=== PATIENT | female | born 1970 | race American Indian/Alaskan Native ===

== ENCOUNTER 2017-01-23 14:25 | Observation (INO) ==
--- NOTE | 2017-01-23 15:27 | EKG Report ---
Stationary ECG Study [facility] ER Test Date: 01/23/2017 2:36:54 PM Pat Name: LYNNE CALLAWAY Department: Room: Gender: F Medical Transcription: : 1970 Requested by: Daniel Mckeon Order Number: [id number] Reading MD: SALLIE MARMOLEJO Intervals [place] Rate: 64 P: 36 DC: 133 QRS: 81 QRSD: 89 T: 2 QT: 459 QTc: 469 Interpretive Statements SINUS RHYTHM LOW QRS VOLTAGE IN PRECORDIAL LEADS POSSIBLE RIGHT VENTRICULAR CONDUCTION DELAY Electronically Signed On 01-23-17 18:21:36 CDT by SALLIE MARMOLEJO [email or web address]
--- NOTE | 2017-01-23 15:53 | XRay Report ---
Portable chest Date: 01/23/2017 Clinical history: Chest pain Comparison: 01/23/2017 Technique: Portable AP sitting chest Findings: The heart is minimally enlarged with chronic scarring in the lungs. Progressive atelectasis at the lung bases. Apparent localized eventration of the left hemidiaphragm medially. Chronic fracture dislocation of the distal right clavicle. Old healed right rib fractures. Impression: Minimal cardiomegaly with progressive atelectasis at the lung bases with additional minimal interstitial edema. Localized eventration of the left hemidiaphragm medially. PROCEDURE INTERPRETED AT [facility] DEPARTMENT OF RADIOLOGY Final Report Signed by: Dr. Jane Wang
[2017-01-23 16:17] LABS: Basophils % 0.5 % (0.0-0.8); Eosinophils % 0.5 % (0.00-10.9); Hemoglobin 13.5 GM/DL (12.0-16.0); Immature Granulocytes % 0.3 %; Immature Granulocytes Absolute 0.02 #; Lymphocytes # 2.1 10*3/uL (1.4-4.0); Lymphocytes % 35.4 % (21.3-54.2); Mean Corpuscular HGB Conc 34.6 GM/DL (32-36); Mean Corpuscular Hemoglobin 31 PG (27-34); Mean Corpuscular Volume 89.7 FL (87-102); Mean Platelet Volume 10.3 FL (9.6-12.0); Monocytes # 0.4 10*3/uL (0.11-0.8); Monocytes % 7.1 % (1.7-12.7); Neutrophils # 3.3 10*3/uL (1.4-7.4); Neutrophils % 56.2 % (38.7-73.9); Platelet Count 139 T/CUMM (130-400); Red Blood Count 4.35 MC/CUMM (3.8-5.5); Red Cell Distribution Width 13.5 % (9.3-17.3); White Blood Count 5.9 T/CUMM (4-12)
[2017-01-23 16:36] LABS: Albumin 2.4 G/DL (3.4-5.0); Bilirubin,Total 0.6 MG/DL (0.2-1.0); Calcium 8.3 MG/DL (8.5-10.1); Osmolality,Calculated 283.7 MOS/KG (273-304); Potassium 3.5 MMOL/L (3.5-5.1)
[2017-01-23 16:43] LABS: D-Dimer 1.1 MG/L FEU; PT Patient Result 10.7 SECS
[2017-01-23] MEDS ORDERED: SODIUM CHLORIDE 0.9% 1,000 ML IV STA (17:34)
--- NOTE | 2017-01-23 17:41 | Emergency Department Note ---
Abe Jacobsen Manpreet, am scribing for, and in the presence of, Daniel Mckeon Jr., MD 15:26. Linda Jacobsen Marvin Jr., MD, personally performed the services described in this documentation, ascribed by Tim Fish in my presence, and it is both accurate and complete 528 . Arrival - Arrival ED Nursing Triage Note: Transfer from [facility] ER for further evaluation of chest pain. Left sided chest pain radiating into left arm onset 0745am--denies pain at present. Denies nausea or shortness of breath. Mode of Arrival: Stretcher Limitations: No Limitations Source: Patient - History of Present Illness Onset (ago): hour(s) (At 0745 AM today) Consistency: constant Severity: moderate, severe Quality: stabbing Date of Last Menstrual Period: 12/30/16 <Daniel Mckeon Jr. - Last Filed: 01/23/17 17:51> <Reid Lei - Last Filed: 01/23/17 18:28> - Arrival Chief Complaint: Chest Pain Stated Complaint: chest pain - History of Present Illness HPI Narrative: Pt is a 46 y/o female who was transferred form [facility] ER for further evaluation of her CP that radiates to her left arm that began 0745 AM. Pt also c/o being nausea and states the pain lasted 2 hours and felt like something was stabbing her. Pt felt being sleepy after this incident. Pt's CP was relieved after she was give NTG. Pt describes the pain as being sever. No other pains/complaints reported to the ED. (Tim Fish) Pt is a 46 y/o female who was transferred form [facility] ER for further evaluation of her CP that radiates to her left arm that began 0745 AM. Pt also c/o being nausea and states the pain lasted 2 hours and felt like something was stabbing her. Pt felt being sleepy after this incident. Pt's CP was relieved after she was give NTG. Pt describes the pain as being sever. No other pains/complaints reported to the ED. (Daniel Mckeon Jr.) Allergies/Adverse Reactions: Allergies Allergy/AdvReac Type Severity Reaction Status Date / Time No Known Allergies Allergy Verified 01/23/17 14:30 Home Medications: Home Medications Medication Instructions Recorded Confirmed Type Aspirin [Ecotrin] 81 mg PO DAILY 12/20/14 01/09/16 History Lisinopril 2.5 mg PO DAILY 12/20/14 01/09/16 History Omeprazole 40 mg PO DAILY 03/07/15 01/09/16 History Nitroglycerin [Nitroglycerin SL 0.4 mg SL Q5M PRN #10 tablet 07/09/15 01/09/16 Rx Tab] Clindamycin HCl [Clindamycin Cap] 300 mg PO Q8HR #10 capsule 01/09/16 Rx HYDROcodone/ACETAMIN 7.5-325 1 tablet PO Q4H PRN #40 tablet 01/09/16 Rx [[place] 7.5-325] metFORMIN [Glucophage] 500 mg PO BID W/MEALS 01/09/16 01/09/16 History Review of System - Review of System 12 point system: reviewed and no additional remarkable complaints except as stated - Review of System Constitutional: Absent: chills, diaphoresis, fever Respiratory: Absent: cough, respiratory distress Cardiovascular: Present: chest pain. Absent: dyspnea on exertion Gastrointestinal: Present: nausea. Absent: abdominal pain, vomiting, diarrhea Musculoskeletal: Present: arm pain (Left arm pain). Absent: back pain, neck pain Neurological: Absent: headache, weakness <Daniel Mckeon Jr. - Last Filed: 01/23/17 17:51> Medical,Surgical,& Family Hx - Medical History Cardio: History of: Hypertension Comment Only: Cardiovascular Problems (doesnt know doctor) Neurology: No history of: Seizures Endocrine: History of: Diabetes Mellitus (NIDDM) Rheumatology: History of;: Rheumatoid Arthritis (R Knee) Respiratory: No history of: Asthma Gastrointestinal: History of: GERD, GI Problems (hX ABD Pain) - Surgical History Cardiac Surgeries: Sugical HX of: Cardiac Catheterization (negative) Thoracic Surgeries: Patient denies;: Organ Transplant HEENT Surgeries: Patient denies: Tonsilectomy & Adenoidectomy Abdominal Surgeries: Surgical HX of: Abdominal Surgery, Appendectomy, EGD Reproductive Surgeries: Surgical HX of;: Section Patient denies;: Hysterectomy Orthopedic Surgeries: Surgical HX of;: Implanted Devices (pins in R ankle), Orthopedic Surgery (bilateral knee scopes) - Family History Family History: Reports;: Family Cancer (Maternal grandmother--brain Ca), Family Diabetes (Father), Family Hypertension (Father) - Social History Smoking Status: Never smoker Frequency of Alcohol Use: None Type of Drug Use: None <Daniel Mckeon Jr. - Last Filed: 01/23/17 17:51> Exam <Daniel Mckeon Jr. - Last Filed: 01/23/17 17:51> <Reid Lei - Last Filed: 01/23/17 18:28> Physical Examination: General: Well-developed well-nourished, no apparent distress. Head: Normocephalic, atraumatic. Eyes: PERRLA, EOMI. Nose: No obvious acute deformities or discharge. Mouth: No obvious acute injury. Neck: Full range of motion without obvious pain. No midline tender to palpation. Lymphatic: no significant lymphadenopathy noted. Lungs: Clear to auscultation bilaterally, normal and equal air movement bilaterally, no obvious rales or wheezing. Heart: regular rate and rhythm, no obvious mummers. Abdomen: Soft nontender, nondistended, normal active bowel sounds. Skin: No obivous acute lesions noted Musculoskeletal: No gross deformities. Neurological: No focal findings, cranial nerves II through XII grossly normal. Psychiatric: Appropriate mood.. : Deferred (Tim Fish) General: Well-developed well-nourished, no apparent distress. Head: Normocephalic, atraumatic. Eyes: PERRLA, EOMI. Nose: No obvious acute deformities or discharge. Mouth: No obvious acute injury. Neck: Full range of motion without obvious pain. No midline tender to palpation. Lymphatic: no significant lymphadenopathy noted. Lungs: Clear to auscultation bilaterally, normal and equal air movement bilaterally, no obvious rales or wheezing. Heart: regular rate and rhythm, no obvious mummers. Abdomen: Soft nontender, nondistended, normal active bowel sounds. Skin: No obivous acute lesions noted Musculoskeletal: No gross deformities. Neurological: No focal findings, cranial nerves II through XII grossly normal. Psychiatric: Appropriate mood.. : Deferred (Daniel Mckeon Jr.) Vital Signs: Vital Signs Temperature 98.6 F 01/23/17 14:25 Pulse Rate 65 01/23/17 18:00 Respiratory Rate 20 01/23/17 18:00 Blood Pressure 119/67 01/23/17 18:00 O2 Sat by Pulse Oximetry 100 01/23/17 18:00 Course - Reevaluation(s) Time: 17:35 Time: 18:00 <Daniel Mckeon Jr. - Last Filed: 01/23/17 17:51> <Reid Lei - Last Filed: 01/23/17 18:28> Course Narrative: Differential diagnosis, ACS, angina, anxiety, PE, labs done at the outside hospital showed a white blood cell count 4.7 hematocrit 38.7 platelet 135, troponin was less than 0.05, other labs were normal except for an alkaline phosphatase of 192, therefore it shows a normal chest x-ray and nonspecific EKG (Tim Fish) Differential diagnosis, ACS, angina, anxiety, PE, labs done at the outside hospital showed a white blood cell count 4.7 hematocrit 38.7 platelet 135, troponin was less than 0.05, other labs were normal except for an alkaline phosphatase of 192, therefore it shows a normal chest x-ray and nonspecific EKG (Daniel Mckeon Jr.) This is a 46-year-old female who was signed out after being transferred from the [facility] with chest pain which started approximately 8 AM and lasted until 10 AM when her coworkers called an ambulance and her chest pain resolved after 3 nitroglycerin. She has had 2 negative troponins since in the emergency department. Her d-dimer was ordered and found to be elevated so she will have a CT angiogram of her pulmonary artery. Patient states that she is unwilling to stay in the hospital over the weekend to obtain a nuclear medicine stress test but agrees to return to the emergency department should her chest pain return. She had a negative nuclear medicine stress test [address] angiogram of the chest reveals no pulmonary embolus. There is a fat- containing left diaphragmatic hernia which may or may not be related to the patient's symptoms. She preferred not to stay in the hospital over the weekend to wait for nuclear medicine stress test therefore it seems reasonable patient be discharged for outpatient follow-up and will plan to return to the emergency department if her symptoms return. She has had 2 negative troponins in the emergency department and she is currently chest pain-free. With the patient was given the choice to obtain outpatient stress test versus having an inpatient stress test she elected stay in the hospital knowing that a stress test may not occur over the weekend. (Reid Lei) - Reevaluation(s) Reevaluation #1: Patient is unchanged, elevated d-dimer noted and we will do a CTA to rule out PE. (Daniel Mckeon Jr.) Reevaluation #2: Patient's care transferred to (Daniel Mckeon Jr.) Results - Labs CBC & BMP: 01/23/17 16:12 01/23/17 16:12 Lab Results: I have reviewed the patients labs - Diagnostic Findings Procedure: Chest x-ray: report reviewed by me (Minimal cardiomeagly with progressive atelectasis at the lung bases with additional minimal interstitial edema. Localized eventration of the left hemidiaphragm medially.) <Daniel Mckeon Jr. - Last Filed: 01/23/17 17:51> - Labs CBC & BMP: 01/23/17 16:12 01/23/17 16:12 <Reid Lei - Last Filed: 01/23/17 18:28> - Labs Labs: Laboratory Tests 01/23/17 16:12 WBC 5.9 RBC 4.35 Hgb 13.5 Hct 39.0 MCV 89.7 MCH 31 MCHC 34.6 RDW 13.5 Plt Count 139 MPV 10.3 Neut % (Auto) 56.2 Lymph % (Auto) 35.4 [place] % (Auto) 7.1 Eos % (Auto) 0.5 Baso % (Auto) 0.5 Neut # (Auto) 3.3 Lymph # (Auto) 2.1 [place] # (Auto) 0.4 Eos # (Auto) 0.0 Baso # (Auto) 0.0 Immature Gran % 0.3 Nucleated RBC % 0.0 Immature Gran # 0.02 Nucleated RBCs # 0.00 Immature Plt Fraction 0.0 Laboratory Tests 01/23/17 01/23/17 01/23/17 16:12 16:12 16:12 INR 1.0 PT Patient/Control Mix 10.7 D-Dimer, Quantitative 1.1 Sodium 145 Potassium 3.5 Chloride 116 H Carbon Dioxide 22 Anion Gap 10.5 BUN 7 Creatinine 0.40 L GFR Calculation 151 BUN/Creatinine Ratio 17.00 Glucose 66 L Calculated Osmolality 283.7 Calcium 8.3 L Total Bilirubin 0.60 AST 29 ALT 37 Alkaline Phosphatase 166 H Troponin I < 0.015 Total Protein 7.0 Albumin 2.4 L Globulin 4.6 H Albumin/Globulin Ratio 0.5 L (Tim Fish) Laboratory Tests 01/23/17 16:12 WBC 5.9 RBC 4.35 Hgb 13.5 Hct 39.0 MCV 89.7 MCH 31 MCHC 34.6 RDW 13.5 Plt Count 139 MPV 10.3 Neut % (Auto) 56.2 Lymph % (Auto) 35.4 [place] % (Auto) 7.1 Eos % (Auto) 0.5 Baso % (Auto) 0.5 Neut # (Auto) 3.3 Lymph # (Auto) 2.1 [place] # (Auto) 0.4 Eos # (Auto) 0.0 Baso # (Auto) 0.0 Immature Gran % 0.3 Nucleated RBC % 0.0 Immature Gran # 0.02 Nucleated RBCs # 0.00 Immature Plt Fraction 0.0 Laboratory Tests 01/23/17 01/23/17 01/23/17 16:12 16:12 16:12 INR 1.0 PT Patient/Control Mix 10.7 D-Dimer, Quantitative 1.1 Sodium 145 Potassium 3.5 Chloride 116 H Carbon Dioxide 22 Anion Gap 10.5 BUN 7 Creatinine 0.40 L GFR Calculation 151 BUN/Creatinine Ratio 17.00 Glucose 66 L Calculated Osmolality 283.7 Calcium 8.3 L Total Bilirubin 0.60 AST 29 ALT 37 Alkaline Phosphatase 166 H Troponin I < 0.015 Total Protein 7.0 Albumin 2.4 L Globulin 4.6 H Albumin/Globulin Ratio 0.5 L (Daniel Mckeon Jr.)
--- NOTE | 2017-01-23 18:12 | CT Report ---
CT chest PE study Indication: Chest pain. CT CHEST WITH CONTRAST, PE PROTOCOL DLP: 550 mGy*cm. One or more of the following dose reduction techniques was used: Automated exposure control, adjustment of the mA and/or kV according the patient size, or use of iterative reconstruction techniques. Comparison: None Technique: Axial CT images of the chest were obtained during the pulmonary arterial phase of contrast injection. Coronal reconstructions were provided. Omnipaque 350, 80 cc. Findings: No central, lobar or segmental pulmonary artery filling defects. Normal-sized pulmonary artery. Normal heart size. No mediastinal, axillary or hilar lymphadenopathy. There is some atelectasis in the perihilar lungs and lung bases. Lungs are otherwise clear. There is a small fat deposition within the medial left lung base, extruded through the posterior diaphragmatic eris consistent with a small hernia measuring 50 x 35 mm in size. No hiatal hernia. Limited views of the upper abdomen show obesity and fatty infiltration of liver. Liver is nodular in contour. Gallbladder is distended. Spleen, pancreas and adrenal glands are unremarkable. Impression: 1. No evidence of PE. 2. Bilateral perihilar and bibasilar atelectasis. 3. Small fat-containing left diaphragmatic hernia. 4. Obesity, fatty infiltration of the liver and nodular liver contour. Gallbladder distention. PROCEDURE INTERPRETED AT [facility] DEPARTMENT OF RADIOLOGY Final Report Signed by: Eliezer Schilling M.D.
--- NOTE | 2017-01-23 19:09 | Hospitalist History & Physical ---
Assessment and Plan (1) Chest pain Status: Acute Assessment and plan: Serial troponin and EKG, aspirin, consult cardiology Current Visit: Yes (2) Diabetes Status: Acute Assessment and plan: Blood sugar too low, hemoglobin A1c, insulin sliding scale Current Visit: Yes (3) Obstructive sleep apnea Status: Acute Assessment and plan: Needs to schedule outpatient sleep study Current Visit: Yes (4) Morbid obesity Status: Acute Assessment and plan: Needs to lose weight Current Visit: Yes (5) Pulmonary edema Status: Acute Assessment and plan: Lasix 40 mg IV 1. Echocardiogram in a.m. BNP Current Visit: Yes History of Present Illness Chief complaint: chest pain History of present illness: Ms. Holman is a 46 year old female with a history of obstructive sleep apnea diabetes and morbid obesity resents with chest pain that she first described as squeezing pain but then describes the intensity is more of a sharp pain radiating down her left arm that was almost completely relieved with 3 nitro. Patient does now have a headache secondary to nitro. She denies associated shortness of breath but does report diaphoresis during this period of time. She does not remember if she has ever had a stress test before and she denies hypertension. She is supposed to have a sleep study but she has been noncompliant and not schedule it. reports that she snores and she has severe fatigue daily. Home Medications Medication Instructions Recorded Confirmed Type Aspirin [Ecotrin] 81 mg PO DAILY 12/20/14 01/09/16 History Lisinopril 2.5 mg PO DAILY 12/20/14 01/09/16 History Omeprazole 40 mg PO DAILY 03/07/15 01/09/16 History Nitroglycerin [Nitroglycerin SL 0.4 mg SL Q5M PRN #10 tablet 07/09/15 01/09/16 Rx Tab] Clindamycin HCl [Clindamycin Cap] 300 mg PO Q8HR #10 capsule 01/09/16 Rx HYDROcodone/ACETAMIN 7.5-325 1 tablet PO Q4H PRN #40 tablet 01/09/16 Rx [[place] 7.5-325] metFORMIN [Glucophage] 500 mg PO BID W/MEALS 01/09/16 01/09/16 History Allergies Allergy/AdvReac Type Severity Reaction Status Date / Time No Known Allergies Allergy Verified 01/23/17 14:30 Medical,Surgical,& Family Hx - Medical History Cardio: History of: Hypertension Comment Only: Cardiovascular Problems (doesnt know doctor) Neurology: No history of: Seizures Endocrine: History of: Diabetes Mellitus (NIDDM) Rheumatology: History of;: Rheumatoid Arthritis (R Knee) Respiratory: No history of: Asthma Gastrointestinal: History of: GERD, GI Problems (hX ABD Pain) - Surgical History Cardiac Surgeries: Sugical HX of: Cardiac Catheterization (negative) Thoracic Surgeries: Patient denies;: Organ Transplant HEENT Surgeries: Patient denies: Tonsilectomy & Adenoidectomy Abdominal Surgeries: Surgical HX of: Abdominal Surgery, Appendectomy, EGD Reproductive Surgeries: Surgical HX of;: Section Patient denies;: Hysterectomy Orthopedic Surgeries: Surgical HX of;: Implanted Devices (pins in R ankle), Orthopedic Surgery (bilateral knee scopes) - Family History Family History: Reports;: Family Cancer (Maternal grandmother--brain Ca), Family Diabetes (Father), Family Hypertension (Father) - Social History Smoking Status: Never smoker Frequency of Alcohol Use: None Type of Drug Use: None Marital Status: Lives With:: Spouse Functional capacity: independent ambulation - Constitutional Constitutional: Present: headache(s), weight gain. Absent: fever(s) - EENT Eyes: Absent: blurry vision, diplopia Ears: Absent: decreased hearing, ear discharge Nose, mouth and throat: Present: headache(s). Absent: sore throat - Cardiovascular Cardiovascular: Present: chest pain at rest, chest pain with activity, dyspnea on exertion, edema. Absent: dyspnea - Respiratory Respiratory: Present: dyspnea on exertion, snoring. Absent: dyspnea - Gastrointestinal Gastrointestinal: Present: nausea. Absent: abdominal pain, constipation, diarrhea, vomiting - Genitourinary Genitourinary: Absent: difficulty urinating, dysuria - Neurological Neurological: Present: headache(s). Absent: confusion, syncope - Psychiatric Psychiatric: Absent: anxiety, depression - Endocrine Endocrine: Absent: cold intolerance, heat intolerance - Hematologic/Lymphatic Hematologic/Lymphatic: Absent: easy bleeding, easy bruising Exam - Constitutional Vitals: Period Temp Pulse Resp BP Sys/[place] Pulse Ox Last 24 Hr 98.6 F-98.6 F 57-70 19-22 103-166/62-106 98-100 General appearance: normal weight, no acute distress - Head Head exam: Present: normal inspection, normocephalic - Eye Eye exam: Present: EOMI. Absent: scleral icterus Pupils: Present: GILMAR, normal accommodation - ENT ENT exam: Present: normal exam, normal external ear exam - Neck Neck exam: Present: thyromegaly. Absent: lymphadenopathy - Respiratory Respiratory exam: Present: clear to auscultation bilaterally. Absent: rhonchi, wheezes - Cardiovascular Cardiovascular exam: Present: regular rate and rhythm. Absent: systolic murmur - GI/Abdominal GI/Abdominal exam: Present: normal bowel sounds, soft. Absent: tenderness - Extremities Exam Extremities exam: Present: normal capillary refill, edema - Neurological Exam Neurological exam: Present: alert, oriented X3, CN II-XII intact, reflexes normal. Absent: motor sensory deficit - Psychiatric Psychiatric exam: Present: normal affect, normal mood - Skin Skin exam: Present: normal color, warm Results - Labs CBC & BMP: 01/23/17 16:12 01/23/17 16:12 Lab Results: I have reviewed the past 24 hour labs - EKG EKG shows: sinus rhythm (Q waves inferiorly) - Diagnostic Findings Procedure: Chest x-ray: report reviewed by me (Pulmonary edema), CT - chest: report reviewed by me (fatty infiltration of liver, pulmonary edema )
[2017-01-23] MEDS ORDERED: FUROSEMIDE 40 MG/4 ML VIAL IV STA (19:22)
[2017-01-23] MEDS ORDERED: FUROSEMIDE 40 MG/4 ML VIAL ONE (19:25)
[2017-01-23] MEDS ORDERED: ASPIRIN 325 MG TABLET PO STA (19:27)
[2017-01-23] MEDS ORDERED: INSULIN LISPRO 100 UNIT/ML SUBCUT ONE (20:52)
[2017-01-23] MEDS ORDERED: MAGNESIUM SULF RIDER 2 GM in PREMIX 1 EACH IV PRN (20:52)
[2017-01-23] MEDS ORDERED: ONDANSETRON 4 MG/2 ML VIAL IV PRN (20:52)
[2017-01-23] MEDS ORDERED: POTASSIUM CHLORIDE 20 MEQ TABLET PO PRN ×2 (20:52)
[2017-01-23] MEDS ORDERED: MAGNESIUM SULF RIDER 4 GM in PREMIX 1 EACH IV PRN (20:52)
[2017-01-23] MEDS ORDERED: MAGNESIUM HYDROXIDE SUSP 30 ML UDCUP PO PRN (20:52)
--- NOTE | 2017-01-23 21:05 | EKG Report ---
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
[2017-01-23] MEDS: ATORVASTATIN 20 MG TABLET PO SCH (22:05)
[2017-01-23] MEDS: METOPROLOL TARTRATE 25 MG TABLET PO SCH (22:05)
[2017-01-23] MEDS: ENOXAPARIN 40 MG/0.4 ML SYRINGE SUBCUT SCH (22:05)
[2017-01-23] MEDS: ACETAMINOPHEN 325 MG TABLET PO PRN (22:54)
--- NOTE | 2017-01-24 00:30 | EKG Report ---
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
[2017-01-24 05:41] LABS: Risk Ratio 4.2; VLDL CHOLESTEROL 20.6 MG/DL
--- NOTE | 2017-01-24 08:55 | EKG Report ---
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
[2017-01-24] MEDS: ASPIRIN EC 325 MG TABLET PO SCH (09:43)
[2017-01-24] MEDS: LISINOPRIL 5 MG TABLET PO SCH (09:43)
--- NOTE | 2017-01-24 10:38 | Cardiology Consult Note ---
Assessment and Plan (1) Chest pain Status: Acute Assessment and plan: 1. 46-year-old significantly overweight (105 kg without BMI calculation) [place] female smoker "I have to stick a day" with hypertension, diabetes, probable JOSE (history of snoring and significant daytime somnolence for many months but has never gone for testing), presents with prolonged atypical chest pain who is ruled out for [place] and has no acute EKG changes 2. CTA was negative for PE although she denies dyspnea 3. Recommend discontinuing all smoking 4. No family history of CAD and first-degree relatives (positive in grandparents) 5. Recommend she go for sleep clinic follow-up given her high likelihood of JOSE and symptoms. 6. She is concerned about having coronary artery disease and wishes to wait in the hospital until she can have further evaluation on Thursday. 7. Given she is diabetic with LDL 113, would add statin therapy. Current Visit: Yes (2) Diabetes Status: Acute Current Visit: Yes (3) Morbid obesity Status: Acute Current Visit: Yes (4) Obstructive sleep apnea Status: Acute Current Visit: Yes History of Present Illness - Consult Narrative History of present illness: Ms. Holman is a 46 year old female who presented after prolonged squeezing chest pain lasting for a couple hours and reportedly was relieved after 3 nitroglycerin. She did not have significant shortness of breath does not report an exertional component. She reportedly had some radiation in her left arm and headache with nitroglycerin. She has no known cardiac history and she believes she had a stress test several years ago "at the [facility] [employer] [facility]" that was "okay". 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 She is now asymptomatic. She has had daytime somnolence for many months and has chronic modest dyspnea on exertion which has not changed significant. She has not had presyncope or syncope CC: Eufemia Chu MD - Home Medications and Allergies Home Medications: Home Medications Medication Instructions Recorded Confirmed Type Aspirin [Ecotrin] 81 mg PO DAILY 12/20/14 01/23/17 History Lisinopril 2.5 mg PO DAILY 12/20/14 01/23/17 History Omeprazole 40 mg PO DAILY 03/07/15 01/23/17 History Nitroglycerin [Nitroglycerin SL 0.4 mg SL Q5M PRN #10 tablet 07/09/15 01/23/17 Rx Tab] HYDROcodone/ACETAMIN 7.5-325 1 tablet PO Q4H PRN #40 tablet 01/09/16 01/23/17 Rx [[place] 7.5-325] metFORMIN [Glucophage] 500 mg PO BID W/MEALS 01/09/16 01/23/17 History Allergies/Adverse Reactions: Allergies Allergy/AdvReac Type Severity Reaction Status Date / Time No Known Allergies Allergy Verified 01/23/17 14:30 Medical,Surgical,& Family Hx - Medical History Cardio: History of: Hypertension Comment Only: Cardiovascular Problems (doesnt know doctor) Neurology: No history of: Seizures Endocrine: History of: Diabetes Mellitus (NIDDM) Rheumatology: History of;: Rheumatoid Arthritis (R Knee) Respiratory: No history of: Asthma Gastrointestinal: History of: GERD, GI Problems (hX ABD Pain) - Surgical History Cardiac Surgeries: Sugical HX of: Cardiac Catheterization (negative) Thoracic Surgeries: Patient denies;: Organ Transplant HEENT Surgeries: Patient denies: Tonsilectomy & Adenoidectomy Abdominal Surgeries: Surgical HX of: Abdominal Surgery, Appendectomy, EGD Reproductive Surgeries: Surgical HX of;: Section Patient denies;: Hysterectomy Orthopedic Surgeries: Surgical HX of;: Implanted Devices (pins in R ankle), Orthopedic Surgery (bilateral knee scopes) - Family History Family History: Reports;: Family Cancer (Maternal grandmother--brain Ca), Family Diabetes (Father), Family Hypertension (Father) - Social History Smoking Status: Never smoker Frequency of Alcohol Use: None Type of Drug Use: None Physical Examination Vital Signs Temp Pulse Resp BP Pulse Ox 98.6 F 64 20 130/73 98 01/23/17 14:25 01/23/17 14:25 01/23/17 14:25 01/23/17 14:25 01/23/17 14:25 General: Present: Appears Well, No Apparent Distress Neck: Present: Supple Neck, No Bruit Cardiac: Present: Reg Rate and Rhythm, No Murmur Lungs: Present: Normal Exam Abdomen: Present: Soft, Non-Tender Extremities: Present: +1 Edema Result/EKG - Labs CBC & BMP: 01/23/17 16:12 01/23/17 16:12 Labs: Laboratory Results - last 24 hr 01/23/17 01/23/17 01/23/17 14:41 16:12 16:12 WBC RBC Hgb Hct MCV MCH MCHC RDW Plt Count MPV Neut % (Auto) Lymph % (Auto) [place] % (Auto) Eos % (Auto) Baso % (Auto) Neut # (Auto) Lymph # (Auto) [place] # (Auto) Eos # (Auto) Baso # (Auto) Immature Gran % Nucleated RBC % Immature Gran # Nucleated RBCs # Immature Plt Fraction INR 1.0 PT Patient/Control Mix 10.7 D-Dimer, Quantitative 1.1 Sodium Potassium Chloride Carbon Dioxide Anion Gap BUN Creatinine GFR Calculation BUN/Creatinine Ratio Glucose POC Glucose 62 L Hemoglobin A1c Calculated Osmolality Calcium Magnesium Total Bilirubin AST ALT Alkaline Phosphatase Troponin I < 0.015 B-Natriuretic Peptide Total Protein Albumin Globulin Albumin/Globulin Ratio Triglycerides Cholesterol LDL Cholesterol VLDL Cholesterol HDL Cholesterol Heart Disease Risk Ratio 01/23/17 01/23/17 01/23/17 16:12 16:12 21:15 WBC 5.9 RBC 4.35 Hgb 13.5 Hct 39.0 MCV 89.7 MCH 31 MCHC 34.6 RDW 13.5 Plt Count 139 MPV 10.3 Neut % (Auto) 56.2 Lymph % (Auto) 35.4 [place] % (Auto) 7.1 Eos % (Auto) 0.5 Baso % (Auto) 0.5 Neut # (Auto) 3.3 Lymph # (Auto) 2.1 [place] # (Auto) 0.4 Eos # (Auto) 0.0 Baso # (Auto) 0.0 Immature Gran % 0.3 Nucleated RBC % 0.0 Immature Gran # 0.02 Nucleated RBCs # 0.00 Immature Plt Fraction 0.0 INR PT Patient/Control Mix D-Dimer, Quantitative Sodium 145 Potassium 3.5 Chloride 116 H Carbon Dioxide 22 Anion Gap 10.5 BUN 7 Creatinine 0.40 L GFR Calculation 151 BUN/Creatinine Ratio 17.00 Glucose 66 L POC Glucose Hemoglobin A1c Calculated Osmolality 283.7 Calcium 8.3 L Magnesium Total Bilirubin 0.60 AST 29 ALT 37 Alkaline Phosphatase 166 H Troponin I B-Natriuretic Peptide 43 Total Protein 7.0 Albumin 2.4 L Globulin 4.6 H Albumin/Globulin Ratio 0.5 L Triglycerides Cholesterol LDL Cholesterol VLDL Cholesterol HDL Cholesterol Heart Disease Risk Ratio 01/23/17 01/23/17 01/23/17 21:15 21:15 21:15 WBC RBC Hgb Hct MCV MCH MCHC RDW Plt Count MPV Neut % (Auto) Lymph % (Auto) [place] % (Auto) Eos % (Auto) Baso % (Auto) Neut # (Auto) Lymph # (Auto) [place] # (Auto) Eos # (Auto) Baso # (Auto) Immature Gran % Nucleated RBC % Immature Gran # Nucleated RBCs # Immature Plt Fraction INR PT Patient/Control Mix D-Dimer, Quantitative Sodium Potassium Chloride Carbon Dioxide Anion Gap BUN Creatinine GFR Calculation BUN/Creatinine Ratio Glucose POC Glucose Hemoglobin A1c 7.4 H Calculated Osmolality Calcium Magnesium 2.0 Total Bilirubin AST ALT Alkaline Phosphatase Troponin I < 0.015 B-Natriuretic Peptide Total Protein Albumin Globulin Albumin/Globulin Ratio Triglycerides Cholesterol LDL Cholesterol VLDL Cholesterol HDL Cholesterol Heart Disease Risk Ratio 01/23/17 01/23/17 01/24/17 22:04 23:35 04:46 WBC RBC Hgb Hct MCV MCH MCHC RDW Plt Count MPV Neut % (Auto) Lymph % (Auto) [place] % (Auto) Eos % (Auto) Baso % (Auto) Neut # (Auto) Lymph # (Auto) [place] # (Auto) Eos # (Auto) Baso # (Auto) Immature Gran % Nucleated RBC % Immature Gran # Nucleated RBCs # Immature Plt Fraction INR PT Patient/Control Mix D-Dimer, Quantitative Sodium Potassium Chloride Carbon Dioxide Anion Gap BUN Creatinine GFR Calculation BUN/Creatinine Ratio Glucose POC Glucose 125 H Hemoglobin A1c Calculated Osmolality Calcium Magnesium Total Bilirubin AST ALT Alkaline Phosphatase Troponin I < 0.015 < 0.015 B-Natriuretic Peptide Total Protein Albumin Globulin Albumin/Globulin Ratio Triglycerides Cholesterol LDL Cholesterol VLDL Cholesterol HDL Cholesterol Heart Disease Risk Ratio 01/24/17 01/24/17 04:46 07:32 WBC RBC Hgb Hct MCV MCH MCHC RDW Plt Count MPV Neut % (Auto) Lymph % (Auto) [place] % (Auto) Eos % (Auto) Baso % (Auto) Neut # (Auto) Lymph # (Auto) [place] # (Auto) Eos # (Auto) Baso # (Auto) Immature Gran % Nucleated RBC % Immature Gran # Nucleated RBCs # Immature Plt Fraction INR PT Patient/Control Mix D-Dimer, Quantitative Sodium Potassium Chloride Carbon Dioxide Anion Gap BUN Creatinine GFR Calculation BUN/Creatinine Ratio Glucose POC Glucose 100 Hemoglobin A1c Calculated Osmolality Calcium Magnesium Total Bilirubin AST ALT Alkaline Phosphatase Troponin I B-Natriuretic Peptide Total Protein Albumin Globulin Albumin/Globulin Ratio Triglycerides 103 Cholesterol 172 LDL Cholesterol 113.0 VLDL Cholesterol 20.6 HDL Cholesterol 41 Heart Disease Risk Ratio 4.20
[2017-01-24] MEDS: METOPROLOL TARTRATE 25 MG TABLET PO SCH ×2 (12:05→21:41)
[2017-01-24] MEDS: ACETAMINOPHEN 325 MG TABLET PO PRN ×2 (15:55→15:56)
--- NOTE | 2017-01-24 16:39 | ECHO Report ---
Celi Holman Exam Date: 01/24/2017 12:15 Referring Physician: Technologist: Dilma Hearn Age: 46 Ht (in): 63 Wt (lb): 240 Gender: F Exam [facility]: [facility] Echo Indications: chest pain, pul. edema, diabetes, JOSE, obesity BP: 131 / 69 HR: 55 Rhythm: bradycardia Technical Quality: Technically difficult study IMPRESSIONS Normal chamber sizes 2+ concentric LVH Normal LVSF without SWMA; EF 65% 1+ tricuspid regurgitation with RVSP 20mmHg + RAP MEASUREMENTS (Male / Female) Normal Values 2D ECHO LV Diastolic Diameter PLAX 4.0 cm 4.2 - 5.9 / 3.9 - 5.3 cm LV Systolic Diameter PLAX 2.1 cm LV Fractional Shortening PLAX 47.9 % IVS Diastolic Thickness 1.5 cm 0.6 - 1.0 / 0.6 - 0.9 cm LVPW Diastolic Thickness 1.0 cm 0.6 - 1.0 / 0.6 - 0.9 cm RV Internal Dim ED PLAX 3.2 cm Aortic Root Diameter 2.2 cm LA Systolic Diameter LX 3.8 cm 3.0 - 4.0 / 2.7 - 3.8 cm DOPPLER TR Peak Velocity 223.0 cm/s TR Peak Gradient 19.9 mmHg FINDINGS Left Ventricle Normal left ventricular cavity size. Mild concentric left ventricular hypertrophy.left ventricular ejection fraction is estimated a Right Ventricle Normal right ventricular size. Right Atrium Normal right atrial size. Left Atrium Normal left atrial size. Mitral Valve Morphologically normal mitral valve. Trace mitral valve regurgitation. Aortic Valve The aortic valve is trileaflet and has normal motion. Tricuspid Valve Morphologically normal tricuspid valve. Trace tricuspid valve regurgitation. Tricuspid regurgitation velocities suggest a PAP of 19.9 mmHg + RAP. Pulmonic Valve Morphologically normal pulmonic valve. Pericardium No pericardial effusion. Aorta Normal size aortic root and proximal ascending aorta. Matt Vivas (Electronically Signed) Final Date: 24 January 2017 16:38
--- NOTE | 2017-01-24 18:01 | Hospitalist Progress Note ---
Hospitalist: Subjective Interval history: 46-year-old female admitted for evaluation of chest pain Exam - Constitutional Vitals: Period Temp Pulse Resp BP Sys/Castanon Pulse Ox Last 24 Hr 97.9 F-98.6 F 52-66 18-22 119-166/67-106 91-100 Exam: General: No Distress Neck: Supple Chest: Clear CV: S1&S2 audible Abdomen: Soft, Non-Tender Extremities: Present: +1 Edema Skin: No rash Rheum: No joint deformities Neuro: No gross sensory deficits Results - Labs CBC & BMP: 01/23/17 16:12 01/23/17 16:12 - Impressions Assessment and Plan (1) Chest pain Status: Acute Assessment and plan: She has been ruled out. There was no PE on CT chest. EKG showed sinus bradycardia. Cardiology planning further testing on Thursday Current Visit: Yes (2) Diabetes-2 Status: Acute Current Visit: Yes Hemoglobin A1c was 7.4 (3) Chronic nicotine addiction Status: Acute Current Visit: Yes (4) Hypercholesterolemia Status: Acute Current Visit: Yes LDL was 113, she is on Lipitor (5) Morbid Obesity Status: Acute Current Visit: Yes She will need a sleep study as an outpatient to evaluate for obstructive obstructive sleep apnea DVT prophylaxis with Lovenox
[2017-01-24] MEDS: ENOXAPARIN 40 MG/0.4 ML SYRINGE SUBCUT SCH (21:41)
[2017-01-24] MEDS: ATORVASTATIN 20 MG TABLET PO SCH (21:41)
[2017-01-25] MEDS: ASPIRIN EC 325 MG TABLET PO SCH (08:58)
[2017-01-25] MEDS: LISINOPRIL 5 MG TABLET PO SCH (08:58)
[2017-01-25] MEDS: METOPROLOL TARTRATE 25 MG TABLET PO SCH ×2 (08:58→20:57)
--- NOTE | 2017-01-25 10:18 | Cardiology Progress Note ---
Assessment and Plan (1) Chest pain Status: Acute Assessment and plan: 1. 46-year-old significantly overweight (105 kg without BMI calculation) [place] female smoker "I have to stick a day" with hypertension, diabetes, probable JOSE (history of snoring and significant daytime somnolence for many months but has never gone for testing), presents with prolonged atypical chest pain who is ruled out for [place] and has no acute EKG changes 2. CTA was negative for PE although she denies dyspnea 3. Recommend discontinuing all smoking 4. No family history of CAD and first-degree relatives (positive in grandparents) 5. Recommend she go for sleep clinic follow-up given her high likelihood of JOSE and symptoms. 6. She is concerned about having coronary artery disease and wishes to wait in the hospital until she can have further evaluation on Thursday. 7. Given she is diabetic with LDL 113, would add statin therapy. January 25, 2017: 1. Resolved atypical chest pain rule out myocardial infarction 2. Multiple risk factors for CAD 3. N.p.o. after midnight and schedule exercise myocardial scan in the morning as she says she can walk fairly well, and she is not feel comfortable being discharged at this point. Current Visit: Yes (2) Diabetes Status: Acute Current Visit: Yes (3) Morbid obesity Status: Acute Current Visit: Yes (4) Obstructive sleep apnea Status: Acute Current Visit: Yes Cardiology - PN: Subj Interval history: [place] seems a bit sleepy and is lying in bed. She had no more chest discomfort or shortness of breath. She wants to stay in the hospital have a stress test tomorrow "so I will not miss anymore work". Exam (Progress Note) - Constitutional Vitals: Period Temp Pulse Resp BP Sys/Castanon Pulse Ox Last 24 Hr 98.3 F-98.6 F 52-59 18-20 113-121/55-71 94-98 General appearance: no acute distress, morbidly obese - Head Head exam: Present: normal inspection, normocephalic, atraumatic - Neck Neck exam: Present: normal inspection - Respiratory Respiratory exam: Present: clear to auscultation bilaterally - Cardiovascular Cardiovascular exam: Present: regular rate and rhythm. Absent: diastolic murmur , rubs - GI/Abdominal GI/Abdominal exam: Present: soft. Absent: tenderness - Extremities Exam Extremities exam: Present: edema Result/EKG - Labs CBC & BMP: 01/23/17 16:12 01/23/17 16:12 Labs: Laboratory Results - last 24 hr 01/24/17 01/24/17 01/25/17 11:42 20:52 07:03 POC Glucose 205 H 192 H 122 H
[2017-01-25] MEDS: PANTOPRAZOLE 40 MG TABLET PO SCH (14:42)
[2017-01-25] MEDS: metFORMIN 500 MG TABLET PO SCH (16:22)
--- NOTE | 2017-01-25 17:40 | Hospitalist Progress Note ---
Hospitalist: Subjective Interval history: 46-year-old female admitted for evaluation of chest pain. She denies any shortness of breath or chest pain today. Exam - Constitutional Vitals: Period Temp Pulse Resp BP Sys/Castanon Pulse Ox Last 24 Hr 97 F-98.6 F 53-59 18-20 99-121/54-71 94-98 Exam: General: No Distress Neck: Supple Chest: Clear CV: S1&S2 audible Abdomen: Soft, Non-Tender Extremities: Present: +1 Edema Skin: No rash Rheum: No joint deformities Neuro: No gross sensory deficits Results - Labs CBC & BMP: 01/23/17 16:12 01/23/17 16:12 - Impressions Assessment and Plan (1) Chest pain Status: Acute Assessment and plan: She has been ruled out. There was no PE on CT chest. EKG showed sinus bradycardia. Cardiology planning exercise stress testing on Thursday Current Visit: Yes (2) Diabetes-2 Status: Acute Current Visit: Yes Hemoglobin A1c was 7.4 (3) Chronic nicotine addiction Status: Acute Current Visit: Yes (4) Hypercholesterolemia Status: Acute Current Visit: Yes LDL was 113, she is on Lipitor (5) Morbid Obesity Status: Acute Current Visit: Yes She will need a sleep study as an outpatient to evaluate for obstructive obstructive sleep apnea DVT prophylaxis with Lovenox
[2017-01-25] MEDS: ACETAMINOPHEN 325 MG TABLET PO PRN (19:21)
[2017-01-25] MEDS: ATORVASTATIN 20 MG TABLET PO SCH (20:57)
[2017-01-25] MEDS: ENOXAPARIN 40 MG/0.4 ML SYRINGE SUBCUT SCH (20:58)
[2017-01-26] MEDS ORDERED: REGADENOSON 0.4 MG/5 ML SYRINGE IV ONE (08:20)
[2017-01-26] MEDS: ASPIRIN EC 325 MG TABLET PO SCH (09:42)
[2017-01-26] MEDS: metFORMIN 500 MG TABLET PO SCH (09:42)
[2017-01-26] MEDS: LISINOPRIL 5 MG TABLET PO SCH (09:43)
[2017-01-26] MEDS: PANTOPRAZOLE 40 MG TABLET PO SCH (09:43)
[2017-01-26] MEDS: METOPROLOL TARTRATE 25 MG TABLET PO SCH (09:43)
--- NOTE | 2017-01-26 10:06 | Cardiology Progress Note ---
<Francy Cole E - Last Filed: 01/26/17 09:42> Assessment and Plan - Time spent with patient Time spent with patient: Greater than 30 minutes Time spent discussing smoking cessation with patient: 3 to 10 minutes (1) Dyslipidemia Status: Chronic Assessment and plan: SEE PLAN OF CARE LISTED BELOW Current Visit: Yes (2) Tobacco abuse Status: Chronic Assessment and plan: SEE PLAN OF CARE LISTED BELOW Current Visit: Yes (3) Chest pain Status: Resolved Assessment and plan: SEE PLAN OF CARE LISTED BELOW Current Visit: Yes (4) Diabetes Status: Chronic Assessment and plan: SEE PLAN OF CARE LISTED BELOW Current Visit: Yes (5) Obstructive sleep apnea Status: Acute Assessment and plan: SEE PLAN OF CARE LISTED BELOW Current Visit: Yes (6) Morbid obesity Status: Chronic Assessment and plan: SEE PLAN OF CARE LISTED BELOW Current Visit: Yes Cardiology - PN: Subj Interval history: [employer]: DR. BOLANOS SUMMARY: Ms. Holman, 46ChF, with no prior history of known coronary artery disease and risk factors to include: morbid obesity, hypertension, diabetes, dyslipidemia, tobaccoism, sedentary lifestyle. Previously saw Dr. Bolanos approximately 2 years ago, underwent stress test and received favorable results. Has not required follow-up. Admitted January 23, 2017 with complaints of atypical chest pain. Cardiac biomarkers negative, EKG is stable. She is NPO for stress testing this morning. JANUARY 25, 2017: Denies chest pain, heaviness or tightness this morning. Denies shortness of breath. Normally, patient can perform her activities without complaints of angina. She did have recent ORIF of right wrist. She has undergone CT chest which reveals no evidence of PE. Vital signs are stable. Lisinopril and Metoprolol Tartrate have been added to her medication regimen and blood pressure tolerating well. Also, Atorvastatin was added for LDL 113. Patient does have symptoms concerning for sleep apnea. We will arrange for outpatient sleep study evaluation at discharge. I will further discuss with Dr. Vega and await additional recommendations. ASSESSMENT/PLAN: 1. CHEST PAIN - atypical. NPO and scheduled for stress test this morning 2. HYPERTENSION - Lisinopril and Metoprolol have been added during this admission. This will be a new diagnosis. 3. DYSLIPIDEMIA - Atorvastatin has been added during this admission. This will be a new diagnosis. 4. DIABETES - continue sliding scale. 5. OBESITY - counseled regarding need for weight loss, exercise. 6. TOBACCO USE - greater than 5 minutes was spent today discussing the merits of tobacco cessation 7. SLEEP DISORDER - patient snores loudly, frequently wakes with headache, falls asleep within 1-2 minutes of lying down. Mallampati Airway Class III. Will arrange for outpatient sleep study Exam (Progress Note) - Constitutional Vitals: Period Temp Pulse Resp BP Sys/Castanon Pulse Ox Last 24 Hr 97 F-100 F 52-59 18-20 99-117/51-64 94-99 Exam: General: [Appears well with no apparent distress.] [Pleasant and cooperative. ] [Appears comfortable.] HEENT: [PERRL, normocephalic, atraumatic. Poor dentition noted. Mucous membranes moist. No jaundice noted. Conjunctiva moist and clear, sclerae anicteric] Neck: Difficult to assess for JVD due to habitus. No thyromegaly or lymphadenopathy noted. No carotid bruit appreciated Cardiac: [Regular rate and rhythm.] [No murmur rub or gallop.] PMI is nondisplaced. Lungs: [Clear to auscultation without accessory muscle use to assist the respiratory pattern.] Not requiring oxygen Abdomen: Soft, bowel sounds normoactive. Nontender and nondistended. No abdominal bruit or thrill noted. No masses noted. Musculoskeletal: No fluid collection. Decreased range of motion is noted. Extremities: No clubbing, cyanosis noted. [ No edema noted.] Upper extremity pulses 2+. Lower extremity pulses 2+. Capillary refill less than 3 seconds. Skin: No unusual lesions or rashes. No skin breakdown appreciated. Neuro: Awake, alert and oriented 3. Moves all extremities well without hemiparesis or paralysis. No essential tremor is appreciated. Result/EKG - Labs CBC & BMP: 01/23/17 16:12 01/23/17 16:12 Lab Results: I have reviewed the past 24 hour labs Labs: Laboratory Results - last 24 hr 01/25/17 01/25/17 01/25/17 11:50 15:24 19:27 POC Glucose 198 H 262 H 204 H 01/26/17 07:10 POC Glucose 180 H - Diagnostic Findings Procedure: Chest x-ray: report reviewed by me - EKG EKG results: interpreted by me EKG shows: sinus rhythm Specialty Discharge - Follow Up or Referrals Follow up with: Tara Reid MD [Physician] - 2 Weeks Geovanny Bolanos MD [Physician] - <Hailey Vega - Last Filed: 01/26/17 14:57> Exam (Progress Note) - Constitutional Vitals: Period Temp Pulse Resp BP Sys/Castanon Pulse Ox Last 24 Hr 97 F-100 F 52-59 18-20 101-153/51-94 94-99 Result/EKG - Labs CBC & BMP: 01/23/17 16:12 01/23/17 16:12 Labs: Laboratory Results - last 24 hr 01/25/17 01/25/17 01/26/17 15:24 19:27 07:10 POC Glucose 262 H 204 H 180 H
--- NOTE | 2017-01-26 10:14 | Event Note ---
Patient attempted GXT portion of Cardiolite stress test. Achieved 4.3 METS on treadmill but could not further traverse due to severe bilateral knee pain. Therefore, she was transitioned to Lexiscan protocol. No arrhythmia or ST changes noted. Blood pressure responded appropriately. She did have moderate dyspnea on exertion with treadmill portion but no chest pain, heaviness or tightness. At this time, she is transitioning to the next room for final nuclear scan. Dr. Vega to read, interpreted and advise
--- NOTE | 2017-01-26 10:50 | Discharge Summary ---
Hospital Course - Hospital Course Hospital Course: 46-year-old female with history of JOSE, noncompliance, diabetes , tobacco abuse, and morbid obesity admitted by the hospitalist on 01/23/2017 with squeezing chest pain that radiated down her left arm that was relieved with nitro. She was also found to have some minimal pulmonary edema. CT of the chest was done that showed bilateral perihilar and bibasilar atelectasis with no evidence of PE and her echo showed some LVH with an EF of 65%. Cardiology was consulted and patient was ruled out for IL. Patient has a history of snoring and significant daytime somnolence but she has not followed up with sleep medicine. Cardiology did add a statin due to her elevated LDL, increased her lisinopril, added metoprolol, and recommended she keep an appointment with sleep clinic. Patient was concerned about having CAD and wanted to wait in the hospital for further evaluation. Patient underwent stress test this morning where she had no arrhythmia or ST changes noted and her blood pressure responded appropriately. Her Lexiscan was read as normal. Patient will be discharged home with a 6 week follow-up with Dr. Bolanos with an EKG. Complete discharge instructions were given to the patient. Care coordination, chart review, and completed discharge paperwork took approximately 39 minutes. - Time spent with patient Time with patient DS: Greater than 30 minutes Diagnosis - Discharge Diagnosis (1) Chest pain Status: Resolved (2) Diabetes Status: Chronic (3) Obstructive sleep apnea Status: Chronic (4) Morbid obesity Status: Chronic (5) Pulmonary edema Status: Resolved (6) Dyslipidemia Status: Chronic (7) Tobacco abuse Status: Chronic Specialty Discharge - Follow Up or Referrals Follow up with: Tara Reid MD [Physician] - 2 Weeks Discharge Plan - Discharge Data Disposition: Disch To Home/Self Care Condition at Discharge: Stable Discharge Diet: diabetic diet, heart healthy Activity: resume usual activities as tolerated Driving: no restrictions Contact your physician if you experience:: Shortness of breath - Discharge Medications New Aspirin EC Tab 325 mg PO DAILY tablet Lisinopril [Prinivil] 5 mg PO DAILY #30 tablet Metoprolol Tartrate Tab [Lopressor Tab] 25 mg PO BID #60 tablet Atorvastatin [Lipitor] 20 mg PO BEDTIME #30 tablet Continue Omeprazole 40 mg PO DAILY Nitroglycerin [Nitroglycerin SL Tab] 0.4 mg SL Q5M PRN #10 tablet PRN Reason: Chest Pain metFORMIN [Glucophage] 500 mg PO BID W/MEALS HYDROcodone/ACETAMIN 7.5-325 [[place] 7.5-325] 1 tablet PO Q4H PRN #40 tablet PRN Reason: Pain Discontinued Lisinopril 2.5 mg PO DAILY Aspirin [Ecotrin] 81 mg PO DAILY - Follow Up or Referral Follow Up: Tara Reid MD [Physician] - 2 Weeks Zahida Bolanos MD [Physician] - (6 weeks with an EKG) - Forms/Instructions Exam - Constitutional Vitals: Period Temp Pulse Resp BP Sys/Castanon Pulse Ox Last 24 Hr 97 F-100 F 52-59 18-20 99-117/51-64 94-99 Exam: 46-year-old female, no acute distress, alert and oriented Chest clear CV regular rate and rhythm, 3/6 murmur Abdomen obese, nontender Extremities no edema Discharge Results Procedures and tests throughout hospitalization: Pending Orders 01/26/17 04:00 NM itz perf SPECT rest or str IN AM 01/27/17 04:00 Basic Metabolic Panel IN AM CBC [Comp Blood Count Auto Diff] IN AM Labs on day of discharge: Labs from last 24 hours 01/26/17 01/25/17 01/25/17 07:10 19:27 15:24 POC Glucose 180 H 204 H 262 H 01/25/17 11:50 POC Glucose 198 H DS: Provider Date of admission: 01/23/17 19:25 Primary care physician: Eva Munoz MD Attending physician on admission: Micheline Zambrano MD Consults: 01/23/17 20:52 Consult to Physician [CONS] Routine Comment: chest pain Consulting Provider: David ePrez Consult to Specialist Group: Cardiology Person Notified: rocky Date Notified: 01/24/17 Time Notified: 08:38 Discharging clinician: KAITLIN Hernandez Expected date of discharge: 01/26/17
[2017-01-26 12:01] VITALS: BP 153/94
--- NOTE | 2017-01-26 15:32 | Nuclear Medicine Report ---
ROUTINE NUCLEAR STRESS TEST This is a 46-year-old undergoing gated nuclear stress test under the direction of JANAE Hopkins. The patient initially attempted gated walking nuclear stress test, but at 4.8 meta bolic equivalents, her knees began hurting and she was transitioned to Lexiscan. She had received 10 mCi of Technetium-99 Cardiolite for rest images and 30 mCi of Technetium 99 Cardiolite for stress im ages. A 0.4 mg of Lexiscan given for pharmacologic stress test. I reviewed her EKG, shows no signif icant ectopy, no ST segment changes. This was a normal pharmacologic stress test electrically. The patient had raw data, multidimensional analysis, multiplanar SPECT images, computer-generated ana ntitative analysis, all which are reviewed. Raw data demonstrates moderate amount of GI uptake. Bot h rest and stress images are comparable. The multiplanar SPECT images demonstrate an area of moderat e size, moderate intensity, basal mid and distal inferior photopenia at rest, which improves signific antly with stress. There was no prone imaging. I suspect this is artifact due to body habitus. Com puter-generated quantitative analysis gives the summed stress score of 0, summed risk score of 0 and summed different score of 0. The patient's computer generated ventriculography demonstrates end-hernandez tolic volume of 117 cc, end-systolic volume of 49 cc and an ejection fraction of 58%. Computer-gener ated ventriculography demonstrates no regional wall motion abnormality. IMPRESSION: LOW RISK PHARMACOLOGIC STRESS TESTING. Procedure performed and interpreted at [facility] Department of Radiology.
== END 2017-01-26 16:00 | disposition home or self-care (01) ==
LOC: N.EDINP 14:25 → N.ED 14:25 → SUATTDRO 19:25 → N.TELEN 19:58
PROVIDERS: ADMIT Family Medicine; ATTEND Internal Medicine

== ENCOUNTER 2017-03-30 06:36 | Inpatient (IN) ==
[~2017-03-30 06:36] MED LIST: VANCOMYCIN INJ 1,000 MG in SODIUM CHLORIDE 0.9% 250 ML IV ONE
[2017-03-30] MEDS ORDERED: FAMOTIDINE 20 MG TABLET PO ONE (07:25)
[2017-03-30] MEDS ORDERED: DIAZEPAM 5 MG TABLET PO ONE (07:26)
[2017-03-30 07:28] LABS: Basophils % 0.8 % (0.0-0.8); Eosinophils # 0.1 10*3/uL (0.0-0.87); Eosinophils % 1.6 % (0.00-10.9); Hematocrit 38.3 VOL% (35.7-47.0); Hemoglobin 13.2 GM/DL (12.0-16.0); Immature Granulocytes % 0.2 %; Immature Granulocytes Absolute 0.01 #; Lymphocytes # 2.5 10*3/uL (1.4-4.0); Lymphocytes % 49.4 % (21.3-54.2); Mean Corpuscular HGB Conc 34.5 GM/DL (32-36); Mean Corpuscular Hemoglobin 31 PG (27-34); Mean Corpuscular Volume 89.7 FL (87-102); Mean Platelet Volume 10.4 FL (9.6-12.0); Monocytes # 0.4 10*3/uL (0.11-0.8); Monocytes % 8.4 % (1.7-12.7); NRBC # 0.05 10*3/uL; Neutrophils % 39.6 % (38.7-73.9); Platelet Count 128 T/CUMM (130-400); Red Blood Count 4.27 MC/CUMM (3.8-5.5); Red Cell Distribution Width 13.9 % (9.3-17.3); White Blood Count 5.1 T/CUMM (4-12)
[2017-03-30 07:39] LABS: Partial Thromboplastin Time 27.8 SECS (0-40)
[2017-03-30 07:58] LABS: Albumin 2.5 G/DL (3.4-5.0); Bilirubin,Total 0.6 MG/DL (0.2-1.0); Calcium 7.7 MG/DL (8.5-10.1); Potassium 3.5 MMOL/L (3.5-5.1); Total Protein 6.6 G/DL (6.4-8.3)
[2017-03-30] MEDS ORDERED: FAMOTIDINE 20 MG TABLET ONE (09:05)
[2017-03-30] MEDS ORDERED: DIAZEPAM 5 MG TABLET ONE (09:05)
[2017-03-30] MEDS ORDERED: ceFAZolin 1,000 MG VIAL ONE (09:06)
[2017-03-30] MEDS ORDERED: VANCOMYCIN 1,000 MG VIAL ONE (09:06)
[2017-03-30] MEDS ORDERED: SODIUM CHLORIDE 0.9% 50 ML IV ONE (09:06)
[2017-03-30] MEDS ORDERED: TRANEXAMIC ACID 1,000 MG/10 ML VIAL IV ONE (09:25)
[2017-03-30] MEDS ORDERED: MAGNESIUM HYDROXIDE SUSP 30 ML UDCUP PO PRN (09:50)
[2017-03-30] MEDS ORDERED: diphenhydrAMINE CAP 25 MG CAPSULE PO PRN (09:50)
[2017-03-30] MEDS ORDERED: LACTULOSE 20 GM/30 ML UDCUP PO PRN (09:50)
[2017-03-30] MEDS ORDERED: HYDROmorphone 2 MG/1 ML VIAL IV PRN (09:50)
[2017-03-30] MEDS ORDERED: BISACODYL 10 MG SUPP RECTAL PRN (09:50)
[2017-03-30] MEDS ORDERED: TEMAZEPAM 7.5 MG CAPSULE PO PRN (09:50)
[2017-03-30] MEDS ORDERED: NALOXONE 0.4 MG/ML VIAL IV PRN (09:50)
[2017-03-30] MEDS ORDERED: PROMETHAZINE 25 MG/1 ML VIAL IM PRN (09:50)
[2017-03-30] MEDS ORDERED: ONDANSETRON 4 MG/2 ML VIAL IV PRN (09:50)
[2017-03-30 09:51] LABS: Apearance,Urine CLOUDY (Clear); Bilirubin,Urine Negative (Negative); Blood, Urine Large mg/dL (Negative); Glucose,Urine (UA) Negative (Negative); Ketones,Urine Negative (Negative); Mucus,Urine Many /LPF (Occasional); Nitrite,Urine Negative (Negative); Protein,Urine 30 MG/DL; RBC,Urine 1644 /HPF (0-4); Squamous Epithelial Cell,Urine Occasional /HPF (0-10); Urine Color Yellow (Yellow); Urine Specific Gravity 1.021 (1.001-1.035); WBC,Urine 5 /HPF (0-6)
[2017-03-30] MEDS ORDERED: GLUCAGON 1 MG VIAL IM PRN (09:53)
[2017-03-30] MEDS ORDERED: DEXTROSE 50% 25 GM/50 ML VIAL IV PRN (09:53)
[2017-03-30] MEDS ORDERED: PROPOFOL 200 MG/20 ML VIAL IV ONE (09:55)
[2017-03-30] MEDS ORDERED: LIDOCAINE 2% 5 ML VIAL ONE (09:55)
[2017-03-30] MEDS ORDERED: ROPIVACAINE 0.5% 30 ML VIAL ONE (11:38)
[2017-03-30] MEDS ORDERED: MIDAZOLAM 2 MG/2 ML VIAL ONE ×2 (12:14)
[2017-03-30] MEDS ORDERED: ACETAMINOPHEN 1,000 MG/100 ML VIAL IV ONE (12:14)
[2017-03-30] MEDS ORDERED: ePHEDrine 50 MG/ML AMP ONE (12:14)
[2017-03-30] MEDS ORDERED: fentaNYL 100 MCG/2 ML VIAL ONE (12:14)
[2017-03-30] MEDS ORDERED: SODIUM CHLORIDE 0.9% 100 ML IV ONE (12:15)
[2017-03-30] MEDS ORDERED: LACTATED RINGERS 1,000 ML IV ONE (12:15)
[2017-03-30] MEDS ORDERED: SODIUM CHLORIDE 0.9% 250 ML IV ONE (12:15)
[2017-03-30] MEDS ORDERED: INFLUENZA VIRUS VACCINE 0.5 ML SYRINGE IM ONE (12:49)
[2017-03-30] MEDS ORDERED: PNEUMOCOCCAL VACCINE (23 VALENT) 0.5 ML VIAL IM ONE (12:56)
[2017-03-30] MEDS: HYDROmorphone PCA 30 MG/30 ML SYRINGE IV SCH (12:59)
[2017-03-30] MEDS: LACTATED RINGERS 1,000 ML IV SCH ×2 (13:00→20:50)
[2017-03-30] MEDS: INSULIN REGULAR 100 UNIT/ML SUBCUT SCH ×3 (13:00→20:16)
[2017-03-30] MEDS: ceFAZolin 2,000 MG in PREMIX 1 EACH IV SCH (17:40)
[2017-03-30] MEDS: DOCUSATE SODIUM 100 MG CAPSULE PO SCH (20:42)
[2017-03-31] MEDS: ceFAZolin 2,000 MG in PREMIX 1 EACH IV SCH (01:41)
[2017-03-31 03:42] LABS: Basophils % 0.1 % (0.0-0.8); Eosinophils % 0.1 % (0.00-10.9); Hematocrit 33.8 VOL% (35.7-47.0); Hemoglobin 11.6 GM/DL (12.0-16.0); Immature Granulocytes % 0.4 %; Immature Granulocytes Absolute 0.03 #; Lymphocytes # 2.1 10*3/uL (1.4-4.0); Lymphocytes % 27.2 % (21.3-54.2); Mean Corpuscular HGB Conc 34.3 GM/DL (32-36); Mean Corpuscular Hemoglobin 31 PG (27-34); Mean Corpuscular Volume 90.4 FL (87-102); Mean Platelet Volume 11.1 FL (9.6-12.0); Monocytes # 0.4 10*3/uL (0.11-0.8); Monocytes % 5.6 % (1.7-12.7); Neutrophils # 5.1 10*3/uL (1.4-7.4); Neutrophils % 66.6 % (38.7-73.9); Platelet Count 124 T/CUMM (130-400); Red Blood Count 3.74 MC/CUMM (3.8-5.5); Red Cell Distribution Width 13.9 % (9.3-17.3); White Blood Count 7.6 T/CUMM (4-12)
[2017-03-31 04:01] LABS: Calcium 7.3 MG/DL (8.5-10.1); Osmolality,Calculated 280.4 MOS/KG (273-304); Potassium 3.8 MMOL/L (3.5-5.1)
[2017-03-31] MEDS: INSULIN REGULAR 100 UNIT/ML SUBCUT SCH ×4 (07:36→21:50)
[2017-03-31] MEDS: DOCUSATE SODIUM 100 MG CAPSULE PO SCH ×2 (09:30→21:50)
[2017-03-31] MEDS: HYDROmorphone PCA 30 MG/30 ML SYRINGE IV SCH (13:23)
[2017-03-31] MEDS: LACTATED RINGERS 1,000 ML IV SCH (14:36)
[2017-03-31] MEDS: FONDAPARINUX 2.5 MG/0.5 ML SYRINGE SUBCUT SCH (21:49)
[2017-04-01] MEDS: LACTATED RINGERS 1,000 ML IV SCH (02:43)
[2017-04-01 03:44] LABS: Basophils % 0.2 % (0.0-0.8); Eosinophils # 0.1 10*3/uL (0.0-0.87); Eosinophils % 1.1 % (0.00-10.9); Hematocrit 34.7 VOL% (35.7-47.0); Hemoglobin 11.8 GM/DL (12.0-16.0); Immature Granulocytes % 0.4 %; Immature Granulocytes Absolute 0.04 #; Lymphocytes # 3.1 10*3/uL (1.4-4.0); Lymphocytes % 33.2 % (21.3-54.2); Mean Corpuscular Hemoglobin 31 PG (27-34); Mean Corpuscular Volume 89.9 FL (87-102); Mean Platelet Volume 10.5 FL (9.6-12.0); Monocytes # 0.9 10*3/uL (0.11-0.8); Monocytes % 9.5 % (1.7-12.7); Neutrophils # 5.2 10*3/uL (1.4-7.4); Neutrophils % 55.6 % (38.7-73.9); Red Blood Count 3.86 MC/CUMM (3.8-5.5); Red Cell Distribution Width 13.8 % (9.3-17.3); White Blood Count 9.4 T/CUMM (4-12)
[2017-04-01 04:05] LABS: Platelet Count 95 T/CUMM (130-400)
[2017-04-01 05:10] LABS: Platelet Estimate Adequate
[2017-04-01 05:11] LABS: Ovalocytes 1+
[2017-04-01] MEDS: DOCUSATE SODIUM 100 MG CAPSULE PO SCH ×2 (08:05→21:18)
[2017-04-01] MEDS: INSULIN REGULAR 100 UNIT/ML SUBCUT SCH ×4 (08:05→20:42)
[2017-04-01] MEDS: FONDAPARINUX 2.5 MG/0.5 ML SYRINGE SUBCUT SCH (21:19)
[2017-04-02] MEDS: INSULIN REGULAR 100 UNIT/ML SUBCUT SCH (07:16)
[2017-04-02] MEDS: DOCUSATE SODIUM 100 MG CAPSULE PO SCH (08:00)
[2017-04-02 08:06] VITALS: BP 111/65
[2017-04-02] MEDS: FONDAPARINUX 2.5 MG/0.5 ML SYRINGE SUBCUT SCH (11:06)
== END 2017-04-02 11:38 | disposition home or self-care (01) | DRG 470 ==
LOC: N.OR 06:36 → N.SDSINP 06:42 → N.3E 09:50
PROVIDERS: ADMIT Orthopaedic Surgery; ATTEND Orthopaedic Surgery

== ENCOUNTER 2017-05-03 07:38 | Inpatient (IN) ==
[2017-05-03] MEDS ORDERED: LACTULOSE 20 GM/30 ML UDCUP PO STA (09:19)
[2017-05-03 09:26] LABS: Basophils % 0.4 % (0.0-0.8); Eosinophils % 0.6 % (0.00-10.9); Hematocrit 36.8 VOL% (35.7-47.0); Hemoglobin 12.6 GM/DL (12.0-16.0); Immature Granulocytes % 0.3 %; Immature Granulocytes Absolute 0.02 #; Lymphocytes # 3.5 10*3/uL (1.4-4.0); Lymphocytes % 52.1 % (21.3-54.2); Mean Corpuscular HGB Conc 34.2 GM/DL (32-36); Mean Corpuscular Hemoglobin 30 PG (27-34); Mean Corpuscular Volume 87.6 FL (87-102); Mean Platelet Volume 9.9 FL (9.6-12.0); Monocytes # 0.5 10*3/uL (0.11-0.8); Monocytes % 6.9 % (1.7-12.7); Neutrophils # 2.7 10*3/uL (1.4-7.4); Neutrophils % 39.7 % (38.7-73.9); Platelet Count 177 T/CUMM (130-400); Red Cell Distribution Width 14.1 % (9.3-17.3); White Blood Count 6.8 T/CUMM (4-12)
[2017-05-03] MEDS ORDERED: GLUCAGON 1 MG VIAL IM PRN ×2 (09:27→11:21)
[2017-05-03] MEDS ORDERED: DEXTROSE 50% 25 GM/50 ML VIAL IV PRN ×2 (09:27→11:21)
[2017-05-03 09:49] LABS: PT Patient Result 10.9 SECS
[2017-05-03 09:52] LABS: Calcium 8.1 MG/DL (8.5-10.1); Potassium 3.6 MMOL/L (3.5-5.1)
[2017-05-03 09:55] LABS: Albumin 2.6 G/DL (3.4-5.0); Bilirubin,Direct 0.18 MG/DL (0.0-0.20); Bilirubin,Indirect 1.1 MG/DL (0.0-1.0); Bilirubin,Total 1.3 MG/DL (0.2-1.0); Total Protein 7.2 G/DL (6.4-8.3)
[2017-05-03] MEDS ORDERED: ACETAMINOPHEN 325 MG TABLET PO PRN (11:21)
[2017-05-03] MEDS ORDERED: ONDANSETRON 4 MG/2 ML VIAL IV PRN (11:21)
[2017-05-03 12:55] LABS: Burr Cells 2+; Platelet Estimate Adequate
[2017-05-03] MEDS: LACTULOSE 20 GM/30 ML UDCUP PO SCH ×3 (16:07→23:34)
[2017-05-03] MEDS: SODIUM CHLORIDE 0.9% 1,000 ML IV SCH (16:07)
[2017-05-03] MEDS ORDERED: TROLAMINE SALICYLATE 10% CREAM 85 GM TUBE TOP PRN (17:01)
[2017-05-03] MEDS: INSULIN REGULAR 100 UNIT/ML SUBCUT SCH (20:48)
[2017-05-03 21:49] LABS: Apearance,Urine CLOUDY (Clear); Bilirubin,Urine Negative (Negative); Blood, Urine Large mg/dL (Negative); Glucose,Urine (UA) Negative (Negative); Ketones,Urine Negative (Negative); Mucus,Urine Many /LPF (Occasional); Nitrite,Urine Negative (Negative); Protein,Urine 100 MG/DL; RBC,Urine 3612 /HPF (0-4); Urine Color Red (Yellow); Urine Specific Gravity 1.018 (1.001-1.035)
[2017-05-04] MEDS: LACTULOSE 20 GM/30 ML UDCUP PO SCH ×2 (05:15→13:39)
[2017-05-04 05:20] LABS: Basophils % 0.5 % (0.0-0.8); Eosinophils # 0.1 10*3/uL (0.0-0.87); Eosinophils % 1.3 % (0.00-10.9); Hematocrit 32.8 VOL% (35.7-47.0); Hemoglobin 11.1 GM/DL (12.0-16.0); Immature Granulocytes % 0.2 %; Immature Granulocytes Absolute 0.01 #; Lymphocytes # 3.6 10*3/uL (1.4-4.0); Lymphocytes % 58.1 % (21.3-54.2); Mean Corpuscular HGB Conc 33.8 GM/DL (32-36); Mean Corpuscular Hemoglobin 30 PG (27-34); Mean Corpuscular Volume 88.6 FL (87-102); Mean Platelet Volume 10.5 FL (9.6-12.0); Monocytes # 0.4 10*3/uL (0.11-0.8); Monocytes % 6.9 % (1.7-12.7); Neutrophils # 2.1 10*3/uL (1.4-7.4); Platelet Count 159 T/CUMM (130-400); Red Cell Distribution Width 14.1 % (9.3-17.3); White Blood Count 6.2 T/CUMM (4-12)
[2017-05-04 05:27] LABS: INR 1.1; PT Patient Result 11.1 SECS
[2017-05-04 05:42] LABS: Calcium 7.6 MG/DL (8.5-10.1); Magnesium 1.9 MG/DL (1.8-2.4); Osmolality,Calculated 280.1 MOS/KG (273-304); Potassium 3.5 MMOL/L (3.5-5.1)
[2017-05-04 05:43] LABS: Band Neutrophils 1 % (0-10); Eosinophils 1 % (0-10); Giant Platelets Few; Hypochromasia 1+; Lymphocytes 44 % (20-55); Ovalocytes Slight; Platelet Estimate Normal; Segmented Neutrophils 48 % (50-85); Total Cells Counted 100
[2017-05-04] MEDS: INSULIN REGULAR 100 UNIT/ML SUBCUT SCH ×2 (07:30→13:41)
[2017-05-04] MEDS ORDERED: ASPIRIN EC 81 MG TABLET PO SCH (09:00)
[2017-05-04] MEDS ORDERED: PANTOPRAZOLE 40 MG TABLET PO SCH (09:00)
[2017-05-04] MEDS: SODIUM CHLORIDE 0.9% 1,000 ML IV SCH (09:34)
[2017-05-04 12:05] VITALS: BP 138/75
== END 2017-05-04 15:15 | disposition home or self-care (01) | DRG 442 ==
LOC: EDBD → EDUNIT# → N.ED 07:38 → SUATTDRO 09:18 → N.EDINP 09:18 → N.3E 10:51
PROVIDERS: ADMIT Internal Medicine; ATTEND Internal Medicine Geriatric Medicine

== ENCOUNTER 2018-01-10 15:00 | Inpatient (IN) ==
[2018-01-10 15:53] LABS: Basophils % 0.5 % (0.0-0.8); Eosinophils # 0.1 10*3/uL (0.0-0.87); Hemoglobin 12.9 GM/DL (12.0-16.0); Immature Granulocytes % 0.2 %; Immature Granulocytes Absolute 0.01 #; Lymphocytes # 2.4 10*3/uL (1.4-4.0); Lymphocytes % 40.7 % (21.3-54.2); Mean Corpuscular HGB Conc 33.9 GM/DL (32-36); Mean Corpuscular Hemoglobin 33 PG (27-34); Mean Platelet Volume 10.5 FL (9.6-12.0); Monocytes # 0.5 10*3/uL (0.11-0.8); Monocytes % 8.4 % (1.7-12.7); Neutrophils # 2.9 10*3/uL (1.4-7.4); Neutrophils % 48.2 % (38.7-73.9); Platelet Count 119 T/CUMM (130-400); Red Blood Count 3.96 MC/CUMM (3.8-5.5); Red Cell Distribution Width 14.1 % (9.3-17.3)
[2018-01-10 16:16] LABS: Bilirubin,Total 0.7 MG/DL (0.2-1.0); Calcium 7.3 MG/DL (8.5-10.1); Osmolality,Calculated 286.8 MOS/KG (273-304); Potassium 3.7 MMOL/L (3.5-5.1); Total Protein 6.1 G/DL (6.4-8.3)
[2018-01-10] MEDS ORDERED: FAMOTIDINE 20 MG TABLET PO STA (16:28)
[2018-01-10] MEDS ORDERED: SODIUM CHLORIDE 0.9% 1,000 ML IV STA (16:28)
[2018-01-10] MEDS ORDERED: ONDANSETRON 4 MG/2 ML VIAL IV ONE (16:29)
[2018-01-10] MEDS ORDERED: LORazepam 2 MG/1 ML VIAL IV PRN (17:13)
[2018-01-10] MEDS ORDERED: GLUCAGON 1 MG VIAL IM PRN (17:13)
[2018-01-10] MEDS ORDERED: DEXTROSE 50% 25 GM/50 ML VIAL IV PRN (17:13)
[2018-01-10] MEDS ORDERED: SODIUM CHLORIDE 0.9% 1,000 ML IV SCH (17:30)
[2018-01-10 17:31] LABS: Albumin 1.9 G/DL (3.4-5.0); Bilirubin,Direct 0.26 MG/DL (0.0-0.20); Bilirubin,Indirect 0.4 MG/DL (0.0-1.0); Bilirubin,Total 0.7 MG/DL (0.2-1.0); Total Protein 6.5 G/DL (6.4-8.3)
[2018-01-10] MEDS: OCTREOTIDE 500 MCG in SODIUM CHLORIDE 0.9% 100 ML IV SCH (17:43)
[2018-01-10] MEDS: INSULIN REGULAR 100 UNIT/ML SUBCUT SCH (19:09)
[2018-01-10 19:25] LABS: Hematocrit 40.9 VOL% (35.7-47.0); Hemoglobin 13.9 GM/DL (12.0-16.0)
[2018-01-10] MEDS: DEXTROSE 5% NACL 0.45% 1,000 ML IV SCH (19:45)
[2018-01-10 19:57] LABS: Folate 16.6 NG/ML (5.4-24.0)
[2018-01-10 23:51] LABS: Hematocrit 38.8 VOL% (35.7-47.0); Hemoglobin 12.8 GM/DL (12.0-16.0)
[2018-01-11] MEDS: INSULIN REGULAR 100 UNIT/ML SUBCUT SCH ×4 (00:12→17:48)
[2018-01-11] MEDS ORDERED: PANTOPRAZOLE 40 MG VIAL IV ONE (00:30)
[2018-01-11] MEDS: OCTREOTIDE 500 MCG in SODIUM CHLORIDE 0.9% 100 ML IV SCH ×2 (04:45→14:40)
[2018-01-11 05:41] LABS: Basophils % 0.4 % (0.0-0.8); Eosinophils # 0.1 10*3/uL (0.0-0.87); Eosinophils % 1.8 % (0.00-10.9); Hematocrit 38.3 VOL% (35.7-47.0); Hemoglobin 12.9 GM/DL (12.0-16.0); Immature Granulocytes % 0.2 %; Immature Granulocytes Absolute 0.01 #; Lymphocytes # 2.5 10*3/uL (1.4-4.0); Lymphocytes % 45.7 % (21.3-54.2); Mean Corpuscular HGB Conc 33.7 GM/DL (32-36); Mean Corpuscular Hemoglobin 33 PG (27-34); Mean Corpuscular Volume 97.2 FL (87-102); Mean Platelet Volume 10.8 FL (9.6-12.0); Monocytes # 0.4 10*3/uL (0.11-0.8); Monocytes % 7.9 % (1.7-12.7); Neutrophils # 2.4 10*3/uL (1.4-7.4); Platelet Count 119 T/CUMM (130-400); Red Blood Count 3.94 MC/CUMM (3.8-5.5); Red Cell Distribution Width 14.3 % (9.3-17.3); White Blood Count 5.4 T/CUMM (4-12)
[2018-01-11 06:13] LABS: Albumin 1.8 G/DL (3.4-5.0); Bilirubin,Total 1.4 MG/DL (0.2-1.0); Calcium 7.5 MG/DL (8.5-10.1); Osmolality,Calculated 284.8 MOS/KG (273-304); Potassium 3.5 MMOL/L (3.5-5.1); Total Protein 6.4 G/DL (6.4-8.3)
[2018-01-11 06:58] LABS: Hepatitis B Surface Ag Quant 0.39 Index; Hepatitis B Surface Ag Result Negative (Negative)
[2018-01-11 07:29] LABS: Apearance,Urine Slightly Hazy (Clear); Bilirubin,Urine Negative (Negative); Blood, Urine Negative (Negative); Glucose,Urine (UA) Negative (Negative); Ketones,Urine Negative (Negative); Mucus,Urine Few /LPF (Occasional); Nitrite,Urine Negative (Negative); Protein,Urine Negative; RBC,Urine <1 /HPF (0-4); Squamous Epithelial Cell,Urine Occasional /HPF (0-10); Urine Color Yellow (Yellow); Urine Specific Gravity 1.013 (1.001-1.035); WBC,Urine 3 /HPF (0-6)
[2018-01-11] MEDS: FOLIC ACID 1 MG TABLET PO SCH ×2 (09:00→14:43)
[2018-01-11] MEDS: THIAMINE 100 MG TABLET PO SCH ×2 (09:00→14:43)
[2018-01-11] MEDS: MULTIVITAMIN (CENTRUM) TABLET PO SCH ×2 (09:00→14:44)
[2018-01-11 09:04] LABS: Hepatitis A Ab IgM Quant 0.24 Index; Hepatitis A Ab IgM Result Negative (Negative); Hepatitis B Core IgM Quant < 0.05 Index; Hepatitis B Core IgM Result Negative (Negative); Hepatitis C Virus Ab Quant 0.16 Index; Hepatitis C Virus Ab Result Negative (Negative)
[2018-01-11] MEDS: DEXTROSE 5% NACL 0.45% 1,000 ML IV SCH (11:45)
[2018-01-11 12:00] LABS: Hematocrit 38.8 VOL% (35.7-47.0); Hemoglobin 12.9 GM/DL (12.0-16.0)
[2018-01-11] MEDS ORDERED: LIDOCAINE 2% 5 ML VIAL ONE (12:36)
[2018-01-11] MEDS ORDERED: PROPOFOL 200 MG/20 ML VIAL IV ONE (12:36)
[2018-01-11] MEDS: CARVEDILOL 3.125 MG TABLET PO SCH (16:35)
[2018-01-11] MEDS: LACTULOSE 20 GM/30 ML UDCUP PO SCH (22:20)
[2018-01-12] MEDS: OCTREOTIDE 500 MCG in SODIUM CHLORIDE 0.9% 100 ML IV SCH (00:56)
[2018-01-12] MEDS: DEXTROSE 5% NACL 0.45% 1,000 ML IV SCH (02:01)
[2018-01-12] MEDS: INSULIN REGULAR 100 UNIT/ML SUBCUT SCH ×2 (06:09)
[2018-01-12 06:28] LABS: Basophils % 0.6 % (0.0-0.8); Eosinophils # 0.1 10*3/uL (0.0-0.87); Eosinophils % 2.6 % (0.00-10.9); Hematocrit 37.1 VOL% (35.7-47.0); Hemoglobin 12.5 GM/DL (12.0-16.0); Immature Granulocytes % 0.2 %; Immature Granulocytes Absolute 0.01 #; Lymphocytes # 2.4 10*3/uL (1.4-4.0); Lymphocytes % 46.5 % (21.3-54.2); Mean Corpuscular HGB Conc 33.7 GM/DL (32-36); Mean Corpuscular Hemoglobin 32 PG (27-34); Mean Corpuscular Volume 95.4 FL (87-102); Mean Platelet Volume 10.7 FL (9.6-12.0); Monocytes # 0.4 10*3/uL (0.11-0.8); Monocytes % 7.9 % (1.7-12.7); Neutrophils # 2.1 10*3/uL (1.4-7.4); Neutrophils % 42.2 % (38.7-73.9); Platelet Count 113 T/CUMM (130-400); Red Blood Count 3.89 MC/CUMM (3.8-5.5); Red Cell Distribution Width 14.2 % (9.3-17.3); White Blood Count 5.1 T/CUMM (4-12)
[2018-01-12 06:58] LABS: Albumin 1.6 G/DL (3.4-5.0); Calcium 7.3 MG/DL (8.5-10.1); Potassium 3.6 MMOL/L (3.5-5.1); Total Protein 6.2 G/DL (6.4-8.3)
[2018-01-12 07:37] VITALS: BP 109/66
[2018-01-12] MEDS: FOLIC ACID 1 MG TABLET PO SCH (07:59)
[2018-01-12] MEDS: LACTULOSE 20 GM/30 ML UDCUP PO SCH (07:59)
[2018-01-12] MEDS: MULTIVITAMIN (CENTRUM) TABLET PO SCH (07:59)
[2018-01-12] MEDS: THIAMINE 100 MG TABLET PO SCH (07:59)
[2018-01-12] MEDS: CARVEDILOL 3.125 MG TABLET PO SCH (07:59)
== END 2018-01-12 09:50 | disposition home or self-care (01) | DRG 378 ==
LOC: EDUNIT# → EDBD → N.ED 15:00 → N.EDINP 17:10 → N.2E 18:12

== ENCOUNTER 2018-03-18 06:08 | Inpatient (IN) ==
[2018-03-18] MEDS ORDERED: SODIUM CHLORIDE 0.9% 1,000 ML IV STA ×2 (06:22→07:47)
[2018-03-18] MEDS ORDERED: ONDANSETRON 4 MG/2 ML VIAL IV STA ×2 (06:22→07:47)
[2018-03-18] MEDS ORDERED: ONDANSETRON 4 MG/2 ML VIAL ONE ×2 (06:23→19:11)
[2018-03-18 06:41] LABS: Basophils % 0.3 % (0.0-0.8); Eosinophils % 0.1 % (0.00-10.9); Hematocrit 27.5 VOL% (35.7-47.0); Immature Granulocytes % 0.4 %; Immature Granulocytes Absolute 0.03 #; Lymphocytes # 2.3 10*3/uL (1.4-4.0); Mean Corpuscular HGB Conc 32.7 GM/DL (32-36); Mean Corpuscular Hemoglobin 32 PG (27-34); Mean Corpuscular Volume 98.6 FL (87-102); Mean Platelet Volume 11.5 FL (9.6-12.0); Monocytes # 0.3 10*3/uL (0.11-0.8); Monocytes % 3.9 % (1.7-12.7); Neutrophils # 5.1 10*3/uL (1.4-7.4); Neutrophils % 65.3 % (38.7-73.9); Platelet Count 117 T/CUMM (130-400); Red Blood Count 2.79 MC/CUMM (3.8-5.5); Red Cell Distribution Width 13.5 % (9.3-17.3); White Blood Count 7.8 T/CUMM (4-12)
[2018-03-18 06:50] LABS: INR 1.2; PT Patient Result 12.6 SECS; Partial Thromboplastin Time 26.4 SECS (0-40)
[2018-03-18] MEDS ORDERED: PANTOPRAZOLE 40 MG VIAL IV ONE (07:52)
[2018-03-18] MEDS ORDERED: PANTOPRAZOLE 40 MG VIAL IV STA (07:54)
[2018-03-18] MEDS ORDERED: SODIUM CHLORIDE 0.9% 1,000 ML IV PRN ×2 (07:58→08:20)
[2018-03-18] MEDS: LACTULOSE 20 GM/30 ML UDCUP PO SCH (10:43)
[2018-03-18] MEDS: FOLIC ACID 1 MG TABLET PO SCH (10:44)
[2018-03-18] MEDS: THIAMINE 100 MG TABLET PO SCH (10:49)
[2018-03-18] MEDS: ONDANSETRON 4 MG/2 ML VIAL IV PRN ×2 (10:52→16:55)
[2018-03-18 11:05] LABS: Apearance,Urine CLOUDY (Clear); Bilirubin,Urine Negative (Negative); Blood, Urine Negative (Negative); Glucose,Urine (UA) 150 mg/dL (Negative); Hyaline Casts,Urine 100 /LPF (0-3); Ketones,Urine Negative (Negative); Mucus,Urine Many /LPF (Occasional); Nitrite,Urine Negative (Negative); Protein,Urine 100 MG/DL; RBC,Urine 1 /HPF (0-4); Squamous Epithelial Cell,Urine Occasional /HPF (0-10); Urine Color Amber (Yellow); Urine Specific Gravity 1.023 (1.001-1.035); Urine Urobilinogen < 2.0 EU/DL (0.2-1.0); WBC,Urine 2 /HPF (0-6)
[2018-03-18] MEDS ORDERED: DEXTROSE 50% 25 GM/50 ML VIAL IV PRN (13:56)
[2018-03-18] MEDS ORDERED: GLUCAGON 1 MG VIAL IM PRN (13:56)
[2018-03-18 14:37] LABS: Calcium 6.5 MG/DL (8.5-10.1); Osmolality,Calculated 314.4 MOS/KG (273-304)
[2018-03-18] MEDS: PROMETHAZINE 25 MG/1 ML VIAL IM PRN (15:26)
[2018-03-18] MEDS: INSULIN LISPRO 100 UNIT/ML SUBCUT SCH (17:15)
[2018-03-18] MEDS ORDERED: OCTREOTIDE 100 MCG/ML SYRINGE IV ONE (19:04)
[2018-03-18] MEDS ORDERED: MAGNESIUM SULF RIDER 2 GM in PREMIX 1 EACH IV ONE (19:07)
[2018-03-18] MEDS ORDERED: PROPOFOL 200 MG/20 ML VIAL IV ONE (19:10)
[2018-03-18] MEDS ORDERED: ETOMIDATE 40 MG/20 ML VIAL IV ONE ×2 (19:11)
[2018-03-18] MEDS ORDERED: ePHEDrine 50 MG/ML AMP ONE (19:11)
[2018-03-18] MEDS ORDERED: PHENYLEPHRINE 1 MG/10 ML SYRINGE IV ONE (19:12)
[2018-03-18] MEDS ORDERED: HALOPERIDOL 5 MG/ML AMP IV ONE ×2 (19:26→20:09)
[2018-03-18] MEDS: OCTREOTIDE 500 MCG in SODIUM CHLORIDE 0.9% 100 ML IV SCH (19:30)
[2018-03-18] MEDS: cefTRIAXone 1,000 MG in SYRINGE 1 EACH IV SCH (20:33)
[2018-03-18] MEDS: PANTOPRAZOLE 40 MG VIAL IV SCH (20:33)
[2018-03-18] MEDS: RIFAXIMIN 550 MG TABLET PO SCH (20:34)
[2018-03-18] MEDS: PRAMIPEXOLE 0.25 MG TABLET PO SCH (20:34)
[2018-03-18] MEDS ORDERED: HALOPERIDOL 5 MG/ML AMP IM ONE (20:49)
[2018-03-18] MEDS ORDERED: LACTATED RINGERS 1,000 ML IV ONE (20:50)
[2018-03-18] MEDS: NOREPINEPHRINE 8 MG in SODIUM CHLORIDE 0.9% 242 ML IV PRN (23:02)
[2018-03-19] MEDS: INSULIN LISPRO 100 UNIT/ML SUBCUT SCH ×4 (00:30→18:13)
[2018-03-19] MEDS: PROMETHAZINE 25 MG/1 ML VIAL IM PRN (04:47)
[2018-03-19] MEDS: OCTREOTIDE 500 MCG in SODIUM CHLORIDE 0.9% 100 ML IV SCH ×2 (05:07→15:04)
[2018-03-19 05:28] LABS: Basophils % 0.1 % (0.0-0.8); Hematocrit 26.8 VOL% (35.7-47.0); Hemoglobin 8.7 GM/DL (12.0-16.0); Immature Granulocytes % 1.1 %; Immature Granulocytes Absolute 0.25 #; Lymphocytes % 26.3 % (21.3-54.2); Mean Corpuscular HGB Conc 32.5 GM/DL (32-36); Mean Corpuscular Hemoglobin 31 PG (27-34); Mean Platelet Volume 12.5 FL (9.6-12.0); Monocytes # 1.6 10*3/uL (0.11-0.8); Monocytes % 6.8 % (1.7-12.7); NRBC # 0.08 10*3/uL; Neutrophils # 14.9 10*3/uL (1.4-7.4); Neutrophils % 65.7 % (38.7-73.9); Red Blood Count 2.85 MC/CUMM (3.8-5.5); Red Cell Distribution Width 15.1 % (9.3-17.3); White Blood Count 22.7 T/CUMM (4-12)
[2018-03-19] MEDS ORDERED: SODIUM CHLORIDE 0.9% 500 ML IV ONE (05:35)
[2018-03-19 05:40] LABS: INR 1.8; PT Patient Result 18.3 SECS
[2018-03-19 05:42] LABS: Platelet Count 53 T/CUMM (130-400)
[2018-03-19] MEDS: MORPHINE 4 MG/1 ML VIAL IV PRN ×2 (05:51→09:50)
[2018-03-19 05:55] LABS: Albumin 1.6 G/DL (3.4-5.0); Bilirubin,Total 1.1 MG/DL (0.2-1.0); Calcium 6.8 MG/DL (8.5-10.1); Osmolality,Calculated 310.4 MOS/KG (273-304); Potassium 4.5 MMOL/L (3.5-5.1); Total Protein 4.3 G/DL (6.4-8.3)
[2018-03-19 06:16] LABS: Band Neutrophils 3 % (0-10); Eosinophils 1 % (0-10); Lymphocytes 27 % (20-55); Nucleated Red Blood Cells 0 (0-5); Platelet Estimate Decreased; Segmented Neutrophils 64 % (50-85); Total Cells Counted 100
[2018-03-19 06:17] LABS: Anisocytosis 1+; Hypochromasia Slight; Macrocytosis 1+; Polychromasia 1+; Reactive Lymphocytes Few
[2018-03-19] MEDS: SODIUM CHLORIDE 0.9% 1,000 ML IV SCH ×3 (06:19→21:59)
[2018-03-19] MEDS: NOREPINEPHRINE 8 MG in SODIUM CHLORIDE 0.9% 242 ML IV PRN (08:12)
[2018-03-19] MEDS ORDERED: GLUCAGON 1 MG VIAL ONE (09:42)
[2018-03-19] MEDS: PANTOPRAZOLE 40 MG VIAL IV SCH ×2 (09:50→21:36)
[2018-03-19] MEDS ORDERED: LIDOCAINE 100 MG/5 ML SYRINGE ONE (10:00)
[2018-03-19] MEDS ORDERED: ETOMIDATE 20 MG/10 ML VIAL IV ONE (10:00)
[2018-03-19] MEDS ORDERED: PROPOFOL 200 MG/20 ML VIAL IV ONE (10:00)
[2018-03-19] MEDS ORDERED: ETOMIDATE 40 MG/20 ML VIAL IV ONE (14:42)
[2018-03-19] MEDS ORDERED: NIFEdipine 10 MG CAPSULE PO PRN (15:58)
[2018-03-19] MEDS: LACTULOSE 20 GM/30 ML UDCUP PO SCH (17:27)
[2018-03-19] MEDS: RIFAXIMIN 550 MG TABLET PO SCH ×2 (17:28→21:36)
[2018-03-19] MEDS: FOLIC ACID 1 MG TABLET PO SCH (17:28)
[2018-03-19] MEDS: THIAMINE 100 MG TABLET PO SCH (17:28)
[2018-03-19] MEDS: cefTRIAXone 1,000 MG in SYRINGE 1 EACH IV SCH (21:36)
[2018-03-19] MEDS: PRAMIPEXOLE 0.25 MG TABLET PO SCH (21:36)
[2018-03-20] MEDS: INSULIN LISPRO 100 UNIT/ML SUBCUT SCH ×5 (00:05→23:54)
[2018-03-20] MEDS: OCTREOTIDE 500 MCG in SODIUM CHLORIDE 0.9% 100 ML IV SCH ×3 (01:02→21:10)
[2018-03-20] MEDS: NOREPINEPHRINE 8 MG in SODIUM CHLORIDE 0.9% 242 ML IV PRN (02:20)
[2018-03-20 04:33] LABS: Basophils # 0.1 10*3/uL (0.0-0.2); Basophils % 0.3 % (0.0-0.8); Eosinophils # 0.1 10*3/uL (0.0-0.87); Eosinophils % 0.3 % (0.00-10.9); Hematocrit 21.5 VOL% (35.7-47.0); Immature Granulocytes % 1.7 %; Immature Granulocytes Absolute 0.41 #; Lymphocytes % 33.3 % (21.3-54.2); Mean Corpuscular HGB Conc 32.6 GM/DL (32-36); Mean Corpuscular Hemoglobin 31 PG (27-34); Mean Corpuscular Volume 95.6 FL (87-102); Mean Platelet Volume 12.5 FL (9.6-12.0); Monocytes # 2.1 10*3/uL (0.11-0.8); Monocytes % 8.6 % (1.7-12.7); NRBC # 1.05 10*3/uL; Neutrophils # 13.4 10*3/uL (1.4-7.4); Neutrophils % 55.8 % (38.7-73.9); Platelet Count 66 T/CUMM (130-400); Red Blood Count 2.25 MC/CUMM (3.8-5.5); Red Cell Distribution Width 16.5 % (9.3-17.3)
[2018-03-20 04:50] LABS: Calcium 6.4 MG/DL (8.5-10.1); Osmolality,Calculated 298.3 MOS/KG (273-304); Potassium 3.9 MMOL/L (3.5-5.1)
[2018-03-20] MEDS: SODIUM CHLORIDE 0.9% 1,000 ML IV SCH ×2 (06:00→23:53)
[2018-03-20 07:09] LABS: Band Neutrophils 2 % (0-10); Lymphocytes 12 % (20-55); Nucleated Red Blood Cells 8 (0-5); Segmented Neutrophils 81 % (50-85); Total Cells Counted 100
[2018-03-20 07:10] LABS: Acanthocytes Few; Anisocytosis 1+; Hypochromasia 1+; Ovalocytes Slight; Platelet Estimate Decreased; Polychromasia Slight
[2018-03-20] MEDS ORDERED: MORPHINE 4 MG/1 ML VIAL IV ONE (08:53)
[2018-03-20] MEDS: FOLIC ACID 1 MG TABLET PO SCH (10:32)
[2018-03-20] MEDS: LACTULOSE 20 GM/30 ML UDCUP PO SCH (10:32)
[2018-03-20] MEDS: PANTOPRAZOLE 40 MG VIAL IV SCH ×2 (10:33→20:04)
[2018-03-20] MEDS: RIFAXIMIN 550 MG TABLET PO SCH ×2 (10:33→20:04)
[2018-03-20] MEDS: THIAMINE 100 MG TABLET PO SCH (10:33)
[2018-03-20] MEDS: MORPHINE 4 MG/1 ML VIAL IV PRN ×2 (13:50→20:14)
[2018-03-20] MEDS ORDERED: MAGNESIUM SULF RIDER 4 GM in PREMIX 1 EACH IV ONE (15:32)
[2018-03-20 19:46] LABS: Hematocrit 26.5 VOL% (35.7-47.0); Hemoglobin 8.8 GM/DL (12.0-16.0)
[2018-03-20] MEDS: PRAMIPEXOLE 0.25 MG TABLET PO SCH (19:59)
[2018-03-20] MEDS: cefTRIAXone 1,000 MG in SYRINGE 1 EACH IV SCH (20:05)
[2018-03-21] MEDS: SODIUM CHLORIDE 0.9% 1,000 ML IV SCH ×3 (01:04→18:43)
[2018-03-21 04:50] LABS: Basophils % 0.2 % (0.0-0.8); Eosinophils # 0.1 10*3/uL (0.0-0.87); Eosinophils % 0.3 % (0.00-10.9); Hematocrit 26.7 VOL% (35.7-47.0); Hemoglobin 8.9 GM/DL (12.0-16.0); Immature Granulocytes % 1.8 %; Immature Granulocytes Absolute 0.37 #; Lymphocytes # 4.7 10*3/uL (1.4-4.0); Lymphocytes % 22.6 % (21.3-54.2); Mean Corpuscular HGB Conc 33.3 GM/DL (32-36); Mean Corpuscular Hemoglobin 31 PG (27-34); Mean Corpuscular Volume 93.4 FL (87-102); Mean Platelet Volume 11.5 FL (9.6-12.0); Monocytes # 2.8 10*3/uL (0.11-0.8); Monocytes % 13.4 % (1.7-12.7); NRBC # 1.96 10*3/uL; Neutrophils # 12.8 10*3/uL (1.4-7.4); Neutrophils % 61.7 % (38.7-73.9); Platelet Count 82 T/CUMM (130-400); Red Blood Count 2.86 MC/CUMM (3.8-5.5); Red Cell Distribution Width 15.9 % (9.3-17.3); White Blood Count 20.8 T/CUMM (4-12)
[2018-03-21 04:52] LABS: Calcium 6.3 MG/DL (8.5-10.1); Potassium 4.2 MMOL/L (3.5-5.1)
[2018-03-21] MEDS: MORPHINE 4 MG/1 ML VIAL IV PRN ×2 (04:59→12:22)
[2018-03-21] MEDS: INSULIN LISPRO 100 UNIT/ML SUBCUT SCH ×4 (05:40→23:38)
[2018-03-21 07:11] LABS: Atypical Lymphocytes Few; Band Neutrophils 7 % (0-10); Burr Cells 1+; Lymphocytes 20 % (20-55); Nucleated Red Blood Cells 9 (0-5); Segmented Neutrophils 65 % (50-85); Total Cells Counted 100
[2018-03-21 07:12] LABS: Macrocytosis 1+; Platelet Estimate Decreased; Smudge Cells Few
[2018-03-21] MEDS: PANTOPRAZOLE 40 MG VIAL IV SCH ×2 (08:00→20:23)
[2018-03-21] MEDS: OCTREOTIDE 500 MCG in SODIUM CHLORIDE 0.9% 100 ML IV SCH ×5 (08:00→23:39)
[2018-03-21] MEDS: THIAMINE 100 MG TABLET PO SCH (08:00)
[2018-03-21] MEDS: RIFAXIMIN 550 MG TABLET PO SCH ×2 (08:00→20:24)
[2018-03-21] MEDS: FOLIC ACID 1 MG TABLET PO SCH (08:00)
[2018-03-21] MEDS: LACTULOSE 20 GM/30 ML UDCUP PO SCH (08:01)
[2018-03-21] MEDS: PRAMIPEXOLE 0.25 MG TABLET PO SCH (20:23)
[2018-03-21] MEDS: cefTRIAXone 1,000 MG in SYRINGE 1 EACH IV SCH (20:23)
[2018-03-22] MEDS: MORPHINE 4 MG/1 ML VIAL IV PRN ×3 (03:06→18:28)
[2018-03-22] MEDS ORDERED: ALUM/MAG/SIMETH/LIDO VISC 1:1 30 ML BOTTLE PO ONE (03:30)
[2018-03-22 05:40] LABS: Basophils % 0.2 % (0.0-0.8); Eosinophils # 0.2 10*3/uL (0.0-0.87); Hemoglobin 8.4 GM/DL (12.0-16.0); Immature Granulocytes % 2.3 %; Immature Granulocytes Absolute 0.34 #; Lymphocytes # 3.2 10*3/uL (1.4-4.0); Lymphocytes % 21.4 % (21.3-54.2); Mean Corpuscular HGB Conc 32.3 GM/DL (32-36); Mean Corpuscular Hemoglobin 30 PG (27-34); Mean Corpuscular Volume 94.2 FL (87-102); Mean Platelet Volume 11.3 FL (9.6-12.0); Monocytes # 2.8 10*3/uL (0.11-0.8); Monocytes % 18.9 % (1.7-12.7); NRBC # 1.79 10*3/uL; Neutrophils # 8.3 10*3/uL (1.4-7.4); Neutrophils % 56.2 % (38.7-73.9); Platelet Count 115 T/CUMM (130-400); Red Blood Count 2.76 MC/CUMM (3.8-5.5); Red Cell Distribution Width 16.8 % (9.3-17.3); White Blood Count 14.8 T/CUMM (4-12)
[2018-03-22 06:03] LABS: Calcium 6.4 MG/DL (8.5-10.1); Osmolality,Calculated 280.8 MOS/KG (273-304)
[2018-03-22 06:09] LABS: Eosinophils 1 % (0-10); Lymphocytes 13 % (20-55); Nucleated Red Blood Cells 20 (0-5); Segmented Neutrophils 79 % (50-85); Total Cells Counted 100
[2018-03-22] MEDS: INSULIN LISPRO 100 UNIT/ML SUBCUT SCH ×3 (06:09→17:56)
[2018-03-22 06:10] LABS: Microcytosis 1+; Polychromasia Slight; Target Cells Slight
[2018-03-22 06:11] LABS: Anisocytosis 1+; Hypochromasia Slight
[2018-03-22] MEDS: PANTOPRAZOLE 40 MG VIAL IV SCH ×2 (08:26→21:47)
[2018-03-22] MEDS: LACTULOSE 20 GM/30 ML UDCUP PO SCH (08:27)
[2018-03-22] MEDS: RIFAXIMIN 550 MG TABLET PO SCH ×2 (08:27→21:47)
[2018-03-22] MEDS: THIAMINE 100 MG TABLET PO SCH (08:27)
[2018-03-22] MEDS: FOLIC ACID 1 MG TABLET PO SCH (08:28)
[2018-03-22] MEDS ORDERED: CALCIUM GLUCONATE 1,000 MG in SODIUM CHLORIDE 0.9% 100 ML IV ONE (12:00)
[2018-03-22] MEDS: SODIUM CHLORIDE 0.9% 1,000 ML IV SCH (14:57)
[2018-03-22] MEDS ORDERED: FUROSEMIDE 40 MG/4 ML VIAL IV ONE (15:19)
[2018-03-22] MEDS: PRAMIPEXOLE 0.25 MG TABLET PO SCH (21:46)
[2018-03-22] MEDS: cefTRIAXone 1,000 MG in SYRINGE 1 EACH IV SCH (21:47)
[2018-03-22] MEDS: OCTREOTIDE 500 MCG in SODIUM CHLORIDE 0.9% 100 ML IV SCH (23:23)
[2018-03-23] MEDS: INSULIN LISPRO 100 UNIT/ML SUBCUT SCH ×4 (01:27→18:47)
[2018-03-23] MEDS: MORPHINE 4 MG/1 ML VIAL IV PRN ×3 (02:22→16:50)
[2018-03-23] MEDS: LACTULOSE 20 GM/30 ML UDCUP PO SCH (08:21)
[2018-03-23] MEDS: RIFAXIMIN 550 MG TABLET PO SCH ×2 (08:21→21:31)
[2018-03-23] MEDS: FOLIC ACID 1 MG TABLET PO SCH (08:21)
[2018-03-23] MEDS: THIAMINE 100 MG TABLET PO SCH (08:21)
[2018-03-23] MEDS: PANTOPRAZOLE 40 MG VIAL IV SCH ×2 (08:22→21:39)
[2018-03-23] MEDS: ONDANSETRON 4 MG/2 ML VIAL IV PRN ×2 (08:28→23:39)
[2018-03-23] MEDS: CICLOPIROX TOP SCH (08:35)
[2018-03-23 11:05] LABS: Hematocrit 24.9 VOL% (35.7-47.0); Hemoglobin 8.2 GM/DL (12.0-16.0)
[2018-03-23] MEDS ORDERED: NITROGLYCERIN SL 0.4 MG TABLET SL ONE (16:28)
[2018-03-23] MEDS ORDERED: ASPIRIN CHEW 81 MG TABLET PO ONE ×2 (16:28)
[2018-03-23] MEDS: NITROGLYCERIN SL 0.4 MG TABLET SL PRN ×2 (16:29→16:34)
[2018-03-23] MEDS: CARVEDILOL 3.125 MG TABLET PO SCH (16:50)
[2018-03-23 17:08] LABS: Basophils % 0.2 % (0.0-0.8); Eosinophils # 0.3 10*3/uL (0.0-0.87); Eosinophils % 1.8 % (0.00-10.9); Hematocrit 24.6 VOL% (35.7-47.0); Hemoglobin 8.2 GM/DL (12.0-16.0); Immature Granulocytes % 4.5 %; Immature Granulocytes Absolute 0.67 #; Lymphocytes # 3.6 10*3/uL (1.4-4.0); Mean Corpuscular HGB Conc 33.3 GM/DL (32-36); Mean Corpuscular Hemoglobin 32 PG (27-34); Mean Corpuscular Volume 94.6 FL (87-102); Mean Platelet Volume 10.5 FL (9.6-12.0); NRBC # 1.13 10*3/uL; Neutrophils # 7.3 10*3/uL (1.4-7.4); Neutrophils % 49.5 % (38.7-73.9); Platelet Count 172 T/CUMM (130-400); White Blood Count 14.8 T/CUMM (4-12)
[2018-03-23 17:14] LABS: ABG Base Excess -5.8 MMOL/L (-2.5-2.5); ABG HCO3 19.6 MMOL/L (20-26); ABG Oxygen Saturation 94.7 % (95-100); ABG PCO2 32.8 MM HG (35-48); ABG PH 7.367 (7.35-7.45); ABG PO2 71.3 MM HG (80-95); ABG TCO2 17.5 MMOL/L (23-27)
[2018-03-23 17:33] LABS: Albumin 1.4 G/DL (3.4-5.0); Calcium 6.6 MG/DL (8.5-10.1); Osmolality,Calculated 282.5 MOS/KG (273-304); Potassium 3.8 MMOL/L (3.5-5.1); Total Protein 4.4 G/DL (6.4-8.3)
[2018-03-23 18:15] LABS: Eosinophils 2 % (0-10); Lymphocytes 18 % (20-55); Nucleated Red Blood Cells 10 (0-5); Segmented Neutrophils 68 % (50-85); Total Cells Counted 100
[2018-03-23 18:16] LABS: Burr Cells Slight; Platelet Estimate Adequate; Polychromasia 1+; Target Cells Few
[2018-03-23] MEDS: FERROUS SULFATE 325 MG TABLET PO SCH (21:31)
[2018-03-23] MEDS: PRAVASTATIN 40 MG TABLET PO SCH (21:31)
[2018-03-23] MEDS: PRAMIPEXOLE 0.25 MG TABLET PO SCH (21:31)
[2018-03-24] MEDS: INSULIN LISPRO 100 UNIT/ML SUBCUT SCH ×5 (01:17→21:48)
[2018-03-24] MEDS: ONDANSETRON 4 MG/2 ML VIAL IV PRN ×2 (04:08→12:31)
[2018-03-24 05:41] LABS: Hematocrit 24.6 VOL% (35.7-47.0); Hemoglobin 8.2 GM/DL (12.0-16.0)
[2018-03-24 05:54] LABS: Calcium 6.4 MG/DL (8.5-10.1); Osmolality,Calculated 281.5 MOS/KG (273-304); Potassium 3.9 MMOL/L (3.5-5.1)
[2018-03-24] MEDS: MORPHINE 4 MG/1 ML VIAL IV PRN (06:01)
[2018-03-24] MEDS ORDERED: SODIUM CHLORIDE 0.9% 1,000 ML IV PRN (06:18)
[2018-03-24] MEDS: CARVEDILOL 3.125 MG TABLET PO SCH ×2 (09:23→16:20)
[2018-03-24] MEDS: LACTULOSE 20 GM/30 ML UDCUP PO SCH (09:23)
[2018-03-24] MEDS: FERROUS SULFATE 325 MG TABLET PO SCH ×2 (09:23→20:49)
[2018-03-24] MEDS: THIAMINE 100 MG TABLET PO SCH (09:23)
[2018-03-24] MEDS: LISINOPRIL 10 MG TABLET PO SCH (09:23)
[2018-03-24] MEDS: FOLIC ACID 1 MG TABLET PO SCH (09:23)
[2018-03-24] MEDS: RIFAXIMIN 550 MG TABLET PO SCH ×2 (09:23→20:49)
[2018-03-24] MEDS: CICLOPIROX TOP SCH (09:24)
[2018-03-24] MEDS: PANTOPRAZOLE 40 MG VIAL IV SCH ×2 (09:26→20:50)
[2018-03-24] MEDS ORDERED: FUROSEMIDE 40 MG/4 ML VIAL IV ONE ×2 (10:00→15:00)
[2018-03-24] MEDS ORDERED: ALBUTEROL/IPRATROPIUM 3 ML NEB RESP TX PRN (17:45)
[2018-03-24] MEDS: PRAVASTATIN 40 MG TABLET PO SCH (20:49)
[2018-03-24] MEDS: PRAMIPEXOLE 0.25 MG TABLET PO SCH (20:49)
[2018-03-24] MEDS: SPIRONOLACTONE 25 MG TABLET PO SCH (20:49)
[2018-03-25] MEDS: ONDANSETRON 4 MG/2 ML VIAL IV PRN (00:13)
[2018-03-25 06:59] LABS: Calcium 6.5 MG/DL (8.5-10.1); Osmolality,Calculated 282.7 MOS/KG (273-304); Potassium 3.8 MMOL/L (3.5-5.1)
[2018-03-25] MEDS: INSULIN LISPRO 100 UNIT/ML SUBCUT SCH ×2 (08:26→12:27)
[2018-03-25] MEDS ORDERED: FUROSEMIDE 40 MG TABLET PO SCH (09:00)
[2018-03-25] MEDS: LACTULOSE 20 GM/30 ML UDCUP PO SCH (10:14)
[2018-03-25] MEDS: SPIRONOLACTONE 25 MG TABLET PO SCH (10:14)
[2018-03-25] MEDS: FERROUS SULFATE 325 MG TABLET PO SCH (10:14)
[2018-03-25] MEDS: LISINOPRIL 10 MG TABLET PO SCH (10:14)
[2018-03-25] MEDS: FOLIC ACID 1 MG TABLET PO SCH (10:14)
[2018-03-25] MEDS: CARVEDILOL 3.125 MG TABLET PO SCH (10:14)
[2018-03-25] MEDS: THIAMINE 100 MG TABLET PO SCH (10:14)
[2018-03-25] MEDS: RIFAXIMIN 550 MG TABLET PO SCH (10:14)
[2018-03-25] MEDS: PANTOPRAZOLE 40 MG VIAL IV SCH (10:15)
[2018-03-25] MEDS: CICLOPIROX TOP SCH (10:15)
[2018-03-25] MEDS: MORPHINE 4 MG/1 ML VIAL IV PRN (11:07)
[2018-03-25 11:46] VITALS: BP 109/52
== END 2018-03-25 13:28 | disposition hospice, home (50) | DRG 432 ==
LOC: EDUNIT# → EDBD → N.ED 06:08 → N.EDINP 08:03 → SUATTDRO 08:03 → N.CC 08:58 → N.2E 03-22 15:51
PROVIDERS: ADMIT Internal Medicine; ATTEND Internal Medicine

== ENCOUNTER 2018-03-26 08:25 | Inpatient (IN) ==
[2018-03-26 15:00] LABS: Apearance,Urine Slightly Hazy (Clear); Bilirubin,Urine Negative (Negative); Blood, Urine Large mg/dL (Negative); Glucose,Urine (UA) Negative (Negative); Hyaline Casts,Urine 3 /LPF (0-3); Ketones,Urine Negative (Negative); Mucus,Urine Occasional /LPF (Occasional); Nitrite,Urine Negative (Negative); Protein,Urine Negative; RBC,Urine 81 /HPF (0-4); Squamous Epithelial Cell,Urine Occasional /HPF (0-10); Urine Color Yellow (Yellow); Urine Specific Gravity 1.013 (1.001-1.035); Urine Urobilinogen < 2.0 EU/DL (0.2-1.0); WBC,Urine 103 /HPF (0-6)
[2018-03-26] MEDS ORDERED: MENTHOL TP PRN (15:34)
[2018-03-26] MEDS ORDERED: GLUCAGON 1 MG VIAL IM PRN (15:34)
[2018-03-26] MEDS ORDERED: DEXTROSE 50% 25 GM/50 ML VIAL IV PRN (15:34)
[2018-03-26] MEDS ORDERED: METHYL SALICYLATE TP PRN (15:34)
[2018-03-26 15:53] LABS: Hematocrit 26.2 VOL% (35.7-47.0); Hemoglobin 8.7 GM/DL (12.0-16.0)
[2018-03-26] MEDS: metFORMIN 500 MG TABLET PO SCH (16:33)
[2018-03-26] MEDS: INSULIN REGULAR 100 UNIT/ML SUBCUT SCH ×2 (16:33→20:08)
[2018-03-26] MEDS: SODIUM CHLORIDE 0.9% 1,000 ML IV SCH (16:33)
[2018-03-26] MEDS: POTASSIUM CHLORIDE 10 MEQ TABLET PO SCH (16:33)
[2018-03-26] MEDS: SPIRONOLACTONE 25 MG TABLET PO SCH (20:58)
[2018-03-26] MEDS: PRAMIPEXOLE 0.25 MG TABLET PO SCH (20:58)
[2018-03-26] MEDS: PANTOPRAZOLE 40 MG VIAL IV SCH (20:58)
[2018-03-26] MEDS: PRAVASTATIN 40 MG TABLET PO SCH (20:58)
[2018-03-26] MEDS: RIFAXIMIN 550 MG TABLET PO SCH (20:58)
[2018-03-26] MEDS: CARVEDILOL 3.125 MG TABLET PO SCH (20:58)
[2018-03-26 20:59] LABS: Hematocrit 25.8 VOL% (35.7-47.0); Hemoglobin 8.4 GM/DL (12.0-16.0)
[2018-03-26] MEDS: LACTULOSE 20 GM/30 ML UDCUP PO SCH (21:52)
[2018-03-26] MEDS: ONDANSETRON 4 MG/2 ML VIAL IV PRN (22:28)
[2018-03-27] MEDS: POTASSIUM CHLORIDE 10 MEQ TABLET PO SCH ×2 (04:25→16:57)
[2018-03-27] MEDS: ONDANSETRON 4 MG/2 ML VIAL IV PRN ×3 (04:25→21:51)
[2018-03-27 04:29] LABS: Basophils % 0.2 % (0.0-0.8); Eosinophils # 0.1 10*3/uL (0.0-0.87); Eosinophils % 0.5 % (0.00-10.9); Hematocrit 23.3 VOL% (35.7-47.0); Hemoglobin 7.6 GM/DL (12.0-16.0); Immature Granulocytes % 1.4 %; Immature Granulocytes Absolute 0.13 #; Lymphocytes # 3.2 10*3/uL (1.4-4.0); Lymphocytes % 34.5 % (21.3-54.2); Mean Corpuscular HGB Conc 32.6 GM/DL (32-36); Mean Corpuscular Hemoglobin 31 PG (27-34); Mean Corpuscular Volume 95.1 FL (87-102); Mean Platelet Volume 9.5 FL (9.6-12.0); NRBC # 0.38 10*3/uL; Neutrophils # 4.9 10*3/uL (1.4-7.4); Neutrophils % 52.4 % (38.7-73.9); Platelet Count 230 T/CUMM (130-400); Red Blood Count 2.45 MC/CUMM (3.8-5.5); Red Cell Distribution Width 18.6 % (9.3-17.3); White Blood Count 9.4 T/CUMM (4-12)
[2018-03-27 04:32] LABS: Hematocrit 23.4 VOL% (35.7-47.0); Hemoglobin 7.5 GM/DL (12.0-16.0)
[2018-03-27 04:47] LABS: Osmolality,Calculated 286.7 MOS/KG (273-304); Potassium 3.6 MMOL/L (3.5-5.1)
[2018-03-27] MEDS ORDERED: SODIUM CHLORIDE 0.9% 1,000 ML IV PRN (08:26)
[2018-03-27] MEDS: SPIRONOLACTONE 25 MG TABLET PO SCH ×2 (09:00→20:32)
[2018-03-27] MEDS ORDERED: PANTOPRAZOLE 40 MG TABLET PO SCH (09:00)
[2018-03-27] MEDS: FOLIC ACID 1 MG TABLET PO SCH (09:00)
[2018-03-27] MEDS: RIFAXIMIN 550 MG TABLET PO SCH ×2 (09:00→20:32)
[2018-03-27] MEDS: metFORMIN 500 MG TABLET PO SCH ×2 (09:00→16:56)
[2018-03-27] MEDS ORDERED: CICLOPIROX TOP SCH (09:00)
[2018-03-27] MEDS: CARVEDILOL 3.125 MG TABLET PO SCH ×2 (09:00→20:36)
[2018-03-27] MEDS: FERROUS SULFATE 325 MG TABLET PO SCH (09:01)
[2018-03-27] MEDS: PANTOPRAZOLE 40 MG VIAL IV SCH ×2 (09:01→20:29)
[2018-03-27] MEDS: THIAMINE 100 MG TABLET PO SCH (09:02)
[2018-03-27] MEDS: INSULIN REGULAR 100 UNIT/ML SUBCUT SCH ×4 (09:02→20:58)
[2018-03-27] MEDS: FUROSEMIDE 40 MG TABLET PO SCH (09:02)
[2018-03-27] MEDS: LISINOPRIL 10 MG TABLET PO SCH (09:02)
[2018-03-27] MEDS: LACTULOSE 20 GM/30 ML UDCUP PO SCH ×3 (09:02→22:33)
[2018-03-27] MEDS: MORPHINE 10 MG/1 ML VIAL IV PRN ×2 (09:18→16:51)
[2018-03-27 09:39] LABS: Hematocrit 24.1 VOL% (35.7-47.0)
[2018-03-27] MEDS ORDERED: ZINC OXIDE PASTE 113 GM TUBE TOP PRN (11:10)
[2018-03-27] MEDS: SODIUM CHLORIDE 0.9% 1,000 ML IV SCH (15:42)
[2018-03-27 19:33] LABS: Hematocrit 29.8 VOL% (35.7-47.0); Hemoglobin 9.9 GM/DL (12.0-16.0)
[2018-03-27] MEDS: PRAMIPEXOLE 0.25 MG TABLET PO SCH (20:32)
[2018-03-27] MEDS: PRAVASTATIN 40 MG TABLET PO SCH (20:32)
[2018-03-28] MEDS: MORPHINE 10 MG/1 ML VIAL IV PRN ×2 (03:13→09:02)
[2018-03-28] MEDS: POTASSIUM CHLORIDE 10 MEQ TABLET PO SCH ×2 (04:15→15:19)
[2018-03-28 05:42] LABS: Basophils % 0.2 % (0.0-0.8); Eosinophils # 0.1 10*3/uL (0.0-0.87); Eosinophils % 1.1 % (0.00-10.9); Hematocrit 28.9 VOL% (35.7-47.0); Hemoglobin 9.5 GM/DL (12.0-16.0); Immature Granulocytes % 1.2 %; Immature Granulocytes Absolute 0.11 #; Lymphocytes # 3.4 10*3/uL (1.4-4.0); Lymphocytes % 36.6 % (21.3-54.2); Mean Corpuscular HGB Conc 32.9 GM/DL (32-36); Mean Corpuscular Hemoglobin 31 PG (27-34); Mean Corpuscular Volume 93.2 FL (87-102); Mean Platelet Volume 9.5 FL (9.6-12.0); Monocytes # 1.2 10*3/uL (0.11-0.8); Monocytes % 13.4 % (1.7-12.7); NRBC # 0.22 10*3/uL; Neutrophils # 4.4 10*3/uL (1.4-7.4); Neutrophils % 47.5 % (38.7-73.9); Platelet Count 220 T/CUMM (130-400); Red Cell Distribution Width 18.7 % (9.3-17.3); White Blood Count 9.2 T/CUMM (4-12)
[2018-03-28] MEDS: LACTULOSE 20 GM/30 ML UDCUP PO SCH ×3 (06:42→22:32)
[2018-03-28] MEDS: INSULIN REGULAR 100 UNIT/ML SUBCUT SCH ×4 (07:30→22:23)
[2018-03-28] MEDS: metFORMIN 500 MG TABLET PO SCH ×2 (08:05→18:14)
[2018-03-28 11:20] LABS: Lymphocytes,Pleural Fluid 14 %; Monocytes,Pleural Fluid 5 %; Neutrophils,Pleural Fluid 81 %; RBC,Pleural Fluid 780 T/CUMM
[2018-03-28] MEDS ORDERED: MORPHINE 4 MG/1 ML VIAL IV ONE (12:07)
[2018-03-28] MEDS: FERROUS SULFATE 325 MG TABLET PO SCH (12:26)
[2018-03-28] MEDS: LISINOPRIL 10 MG TABLET PO SCH (12:26)
[2018-03-28] MEDS: THIAMINE 100 MG TABLET PO SCH (12:26)
[2018-03-28] MEDS: RIFAXIMIN 550 MG TABLET PO SCH ×2 (12:27→21:35)
[2018-03-28] MEDS: FOLIC ACID 1 MG TABLET PO SCH (12:27)
[2018-03-28] MEDS: FUROSEMIDE 40 MG TABLET PO SCH (12:27)
[2018-03-28] MEDS: CARVEDILOL 3.125 MG TABLET PO SCH ×2 (12:28→22:24)
[2018-03-28] MEDS: SPIRONOLACTONE 25 MG TABLET PO SCH ×2 (12:28→22:25)
[2018-03-28 12:52] LABS: Albumin 1.5 G/DL (3.4-5.0); Bilirubin,Total 0.8 MG/DL (0.2-1.0); Calcium 7.3 MG/DL (8.5-10.1); Osmolality,Calculated 291.3 MOS/KG (273-304); Potassium 3.9 MMOL/L (3.5-5.1); Total Protein 5.2 G/DL (6.4-8.3)
[2018-03-28] MEDS: PANTOPRAZOLE 40 MG VIAL IV SCH ×2 (13:31→21:36)
[2018-03-28] MEDS ORDERED: ALBUMIN IV ONE (13:55)
[2018-03-28] MEDS: cefTRIAXone 2,000 MG in SYRINGE 1 EACH IV SCH (18:15)
[2018-03-28] MEDS: PRAMIPEXOLE 0.25 MG TABLET PO SCH (21:35)
[2018-03-28] MEDS: PRAVASTATIN 40 MG TABLET PO SCH (21:36)
[2018-03-28] MEDS: ONDANSETRON 4 MG/2 ML VIAL IV PRN (22:38)
[2018-03-29] MEDS: MORPHINE 4 MG/1 ML VIAL IV PRN ×4 (00:32→22:08)
[2018-03-29] MEDS: SODIUM CHLORIDE 0.9% 1,000 ML IV SCH (02:34)
[2018-03-29] MEDS: POTASSIUM CHLORIDE 10 MEQ TABLET PO SCH ×2 (02:37→16:27)
[2018-03-29] MEDS: LACTULOSE 20 GM/30 ML UDCUP PO SCH ×3 (06:10→22:04)
[2018-03-29] MEDS: PANTOPRAZOLE 40 MG VIAL IV SCH ×2 (09:16→22:04)
[2018-03-29] MEDS: INSULIN REGULAR 100 UNIT/ML SUBCUT SCH ×3 (09:19→17:24)
[2018-03-29] MEDS: FUROSEMIDE 40 MG TABLET PO SCH (09:21)
[2018-03-29] MEDS: CARVEDILOL 3.125 MG TABLET PO SCH ×2 (09:21→22:03)
[2018-03-29] MEDS: ONDANSETRON 4 MG/2 ML VIAL IV PRN (09:21)
[2018-03-29] MEDS: FOLIC ACID 1 MG TABLET PO SCH (09:21)
[2018-03-29] MEDS: metFORMIN 500 MG TABLET PO SCH ×2 (09:21→16:27)
[2018-03-29] MEDS: RIFAXIMIN 550 MG TABLET PO SCH ×2 (09:22→22:03)
[2018-03-29] MEDS: SPIRONOLACTONE 25 MG TABLET PO SCH ×2 (09:22→22:04)
[2018-03-29] MEDS: FERROUS SULFATE 325 MG TABLET PO SCH (09:22)
[2018-03-29] MEDS: LISINOPRIL 10 MG TABLET PO SCH (09:22)
[2018-03-29] MEDS: THIAMINE 100 MG TABLET PO SCH (09:22)
[2018-03-29] MEDS: cefTRIAXone 2,000 MG in SYRINGE 1 EACH IV SCH (14:27)
[2018-03-29] MEDS: PRAMIPEXOLE 0.25 MG TABLET PO SCH (22:03)
[2018-03-29] MEDS: PRAVASTATIN 40 MG TABLET PO SCH (22:03)
[2018-03-30] MEDS: INSULIN REGULAR 100 UNIT/ML SUBCUT SCH ×4 (00:14→21:09)
[2018-03-30] MEDS: SODIUM CHLORIDE 0.9% 1,000 ML IV SCH (02:00)
[2018-03-30 03:25] LABS: Basophils % 0.2 % (0.0-0.8); Eosinophils # 0.1 10*3/uL (0.0-0.87); Eosinophils % 1.5 % (0.00-10.9); Hematocrit 28.6 VOL% (35.7-47.0); Hemoglobin 9.3 GM/DL (12.0-16.0); Immature Granulocytes % 0.6 %; Immature Granulocytes Absolute 0.06 #; Lymphocytes # 3.3 10*3/uL (1.4-4.0); Lymphocytes % 35.9 % (21.3-54.2); Mean Corpuscular HGB Conc 32.5 GM/DL (32-36); Mean Corpuscular Hemoglobin 31 PG (27-34); Mean Corpuscular Volume 94.4 FL (87-102); Mean Platelet Volume 9.3 FL (9.6-12.0); Monocytes # 1.3 10*3/uL (0.11-0.8); Monocytes % 13.7 % (1.7-12.7); NRBC # 0.17 10*3/uL; Neutrophils # 4.4 10*3/uL (1.4-7.4); Neutrophils % 48.1 % (38.7-73.9); Platelet Count 202 T/CUMM (130-400); Red Blood Count 3.03 MC/CUMM (3.8-5.5); Red Cell Distribution Width 18.3 % (9.3-17.3); White Blood Count 9.2 T/CUMM (4-12)
[2018-03-30 03:40] LABS: Albumin 1.5 G/DL (3.4-5.0); Bilirubin,Direct 0.23 MG/DL (0.0-0.20); Bilirubin,Indirect 0.8 MG/DL (0.0-1.0); Potassium 4.2 MMOL/L (3.5-5.1); Total Protein 4.8 G/DL (6.4-8.3)
[2018-03-30] MEDS: ONDANSETRON 4 MG/2 ML VIAL IV PRN (04:41)
[2018-03-30] MEDS: POTASSIUM CHLORIDE 10 MEQ TABLET PO SCH ×2 (05:19→18:01)
[2018-03-30] MEDS: MORPHINE 4 MG/1 ML VIAL IV PRN ×2 (06:27→18:36)
[2018-03-30] MEDS: LACTULOSE 20 GM/30 ML UDCUP PO SCH ×3 (06:31→21:10)
[2018-03-30] MEDS: CARVEDILOL 3.125 MG TABLET PO SCH ×2 (08:45→21:03)
[2018-03-30] MEDS: THIAMINE 100 MG TABLET PO SCH (08:45)
[2018-03-30] MEDS: PANTOPRAZOLE 40 MG VIAL IV SCH ×2 (08:47→21:03)
[2018-03-30] MEDS: SPIRONOLACTONE 25 MG TABLET PO SCH ×2 (08:49→21:03)
[2018-03-30] MEDS: LISINOPRIL 10 MG TABLET PO SCH (08:49)
[2018-03-30] MEDS: RIFAXIMIN 550 MG TABLET PO SCH ×2 (08:49→21:03)
[2018-03-30] MEDS: metFORMIN 500 MG TABLET PO SCH ×2 (08:51→18:02)
[2018-03-30] MEDS: FERROUS SULFATE 325 MG TABLET PO SCH (08:51)
[2018-03-30] MEDS: FOLIC ACID 1 MG TABLET PO SCH (08:52)
[2018-03-30] MEDS: FUROSEMIDE 40 MG TABLET PO SCH (08:52)
[2018-03-30] MEDS ORDERED: ALBUMIN 25% 50 GM in PREMIX 1 EACH IV ONE (12:00)
[2018-03-30] MEDS: cefTRIAXone 2,000 MG in SYRINGE 1 EACH IV SCH (14:26)
[2018-03-30] MEDS: PRAMIPEXOLE 0.25 MG TABLET PO SCH (21:03)
[2018-03-30] MEDS: PRAVASTATIN 40 MG TABLET PO SCH (21:03)
[2018-03-31] MEDS: MORPHINE 4 MG/1 ML VIAL IV PRN ×2 (02:25→09:05)
[2018-03-31 03:44] LABS: Basophils % 0.4 % (0.0-0.8); Eosinophils # 0.1 10*3/uL (0.0-0.87); Eosinophils % 1.5 % (0.00-10.9); Hematocrit 26.9 VOL% (35.7-47.0); Hemoglobin 8.5 GM/DL (12.0-16.0); Immature Granulocytes % 0.5 %; Immature Granulocytes Absolute 0.04 #; Lymphocytes # 2.3 10*3/uL (1.4-4.0); Lymphocytes % 27.8 % (21.3-54.2); Mean Corpuscular HGB Conc 31.6 GM/DL (32-36); Mean Corpuscular Hemoglobin 30 PG (27-34); Mean Corpuscular Volume 95.4 FL (87-102); Mean Platelet Volume 9.6 FL (9.6-12.0); Monocytes # 1.4 10*3/uL (0.11-0.8); NRBC # 0.08 10*3/uL; Neutrophils # 4.3 10*3/uL (1.4-7.4); Neutrophils % 52.8 % (38.7-73.9); Platelet Count 194 T/CUMM (130-400); Red Blood Count 2.82 MC/CUMM (3.8-5.5); Red Cell Distribution Width 18.6 % (9.3-17.3); White Blood Count 8.1 T/CUMM (4-12)
[2018-03-31] MEDS: SODIUM CHLORIDE 0.9% 1,000 ML IV SCH ×2 (04:06→15:33)
[2018-03-31 04:07] LABS: Potassium 4.1 MMOL/L (3.5-5.1)
[2018-03-31 04:17] LABS: Lymphocytes 18 % (20-55); Platelet Estimate Adequate; Polychromasia Few; Segmented Neutrophils 77 % (50-85); Total Cells Counted 100
[2018-03-31] MEDS: POTASSIUM CHLORIDE 10 MEQ TABLET PO SCH ×2 (04:51→15:39)
[2018-03-31] MEDS: LACTULOSE 20 GM/30 ML UDCUP PO SCH ×3 (06:44→21:16)
[2018-03-31] MEDS: INSULIN REGULAR 100 UNIT/ML SUBCUT SCH ×4 (08:26→21:16)
[2018-03-31] MEDS: metFORMIN 500 MG TABLET PO SCH ×2 (08:26→16:38)
[2018-03-31] MEDS: SPIRONOLACTONE 25 MG TABLET PO SCH ×2 (09:03→21:15)
[2018-03-31] MEDS: FUROSEMIDE 40 MG TABLET PO SCH (09:03)
[2018-03-31] MEDS: FOLIC ACID 1 MG TABLET PO SCH (09:03)
[2018-03-31] MEDS: CARVEDILOL 3.125 MG TABLET PO SCH ×2 (09:03→21:15)
[2018-03-31] MEDS: FERROUS SULFATE 325 MG TABLET PO SCH (09:03)
[2018-03-31] MEDS: LISINOPRIL 10 MG TABLET PO SCH (09:04)
[2018-03-31] MEDS: THIAMINE 100 MG TABLET PO SCH (09:04)
[2018-03-31] MEDS: RIFAXIMIN 550 MG TABLET PO SCH ×2 (09:04→21:15)
[2018-03-31] MEDS: PANTOPRAZOLE 40 MG VIAL IV SCH ×2 (09:05→21:05)
[2018-03-31] MEDS ORDERED: LIDOCAINE 2% 5 ML VIAL ONE (10:00)
[2018-03-31] MEDS ORDERED: PHENYLEPHRINE 1 MG/10 ML SYRINGE IV ONE (10:00)
[2018-03-31] MEDS ORDERED: PROPOFOL 200 MG/20 ML VIAL IV ONE (10:00)
[2018-03-31] MEDS ORDERED: ETOMIDATE 20 MG/10 ML VIAL IV ONE (10:00)
[2018-03-31] MEDS ORDERED: DEXTROSE 50% 25 GM/50 ML VIAL IV PRN (13:24)
[2018-03-31] MEDS ORDERED: GLUCAGON 1 MG VIAL IM PRN (13:24)
[2018-03-31] MEDS: cefTRIAXone 2,000 MG in SYRINGE 1 EACH IV SCH (15:39)
[2018-03-31] MEDS ORDERED: BENZOCAINE 10% ORAL GEL 7 GM TUBE TOP PRN (17:58)
[2018-03-31] MEDS: PRAVASTATIN 40 MG TABLET PO SCH (21:14)
[2018-03-31] MEDS: PRAMIPEXOLE 0.25 MG TABLET PO SCH (21:15)
[2018-04-01] MEDS: MORPHINE 4 MG/1 ML VIAL IV PRN ×2 (00:23→09:43)
[2018-04-01] MEDS: POTASSIUM CHLORIDE 10 MEQ TABLET PO SCH ×2 (03:18→18:32)
[2018-04-01] MEDS: SODIUM CHLORIDE 0.9% 1,000 ML IV SCH (03:21)
[2018-04-01] MEDS: LACTULOSE 20 GM/30 ML UDCUP PO SCH ×5 (05:06→21:29)
[2018-04-01] MEDS: INSULIN REGULAR 100 UNIT/ML SUBCUT SCH ×4 (10:35→21:24)
[2018-04-01 10:45] LABS: Basophils % 0.3 % (0.0-0.8); Eosinophils # 0.1 10*3/uL (0.0-0.87); Eosinophils % 1.7 % (0.00-10.9); Hematocrit 26.9 VOL% (35.7-47.0); Hemoglobin 8.8 GM/DL (12.0-16.0); Immature Granulocytes % 0.6 %; Immature Granulocytes Absolute 0.04 #; Lymphocytes # 2.1 10*3/uL (1.4-4.0); Lymphocytes % 29.6 % (21.3-54.2); Mean Corpuscular HGB Conc 32.7 GM/DL (32-36); Mean Corpuscular Hemoglobin 31 PG (27-34); Mean Corpuscular Volume 95.4 FL (87-102); Mean Platelet Volume 9.5 FL (9.6-12.0); Monocytes # 1.2 10*3/uL (0.11-0.8); Monocytes % 16.1 % (1.7-12.7); NRBC # 0.03 10*3/uL; Neutrophils # 3.7 10*3/uL (1.4-7.4); Neutrophils % 51.7 % (38.7-73.9); Platelet Count 196 T/CUMM (130-400); Red Blood Count 2.82 MC/CUMM (3.8-5.5); Red Cell Distribution Width 18.2 % (9.3-17.3); White Blood Count 7.1 T/CUMM (4-12)
[2018-04-01] MEDS: SPIRONOLACTONE 25 MG TABLET PO SCH ×3 (10:49→21:26)
[2018-04-01] MEDS: metFORMIN 500 MG TABLET PO SCH ×2 (10:49→18:32)
[2018-04-01] MEDS: FUROSEMIDE 40 MG TABLET PO SCH (10:49)
[2018-04-01] MEDS: THIAMINE 100 MG TABLET PO SCH (10:50)
[2018-04-01] MEDS: RIFAXIMIN 550 MG TABLET PO SCH ×2 (10:50→21:26)
[2018-04-01] MEDS: LISINOPRIL 10 MG TABLET PO SCH (10:50)
[2018-04-01] MEDS: CARVEDILOL 3.125 MG TABLET PO SCH ×2 (10:50→21:26)
[2018-04-01] MEDS: FERROUS SULFATE 325 MG TABLET PO SCH (10:50)
[2018-04-01] MEDS: PANTOPRAZOLE 40 MG VIAL IV SCH (10:52)
[2018-04-01] MEDS: FOLIC ACID 1 MG TABLET PO SCH (11:00)
[2018-04-01 11:10] LABS: Eosinophils 1 % (0-10); Lymphocytes 22 % (20-55); Nucleated Red Blood Cells 4 (0-5); Segmented Neutrophils 67 % (50-85); Total Cells Counted 100
[2018-04-01 11:11] LABS: Hypochromasia 1+; Macrocytosis 1+
[2018-04-01 11:12] LABS: Platelet Estimate Adequate
[2018-04-01 11:19] LABS: Osmolality,Calculated 285.1 MOS/KG (273-304); Potassium 4.3 MMOL/L (3.5-5.1)
[2018-04-01] MEDS: ONDANSETRON 4 MG/2 ML VIAL IV PRN (11:21)
[2018-04-01] MEDS ORDERED: SPIRONOLACTONE 25 MG TABLET PO SCH (12:13)
[2018-04-01] MEDS: cefTRIAXone 2,000 MG in SYRINGE 1 EACH IV SCH (16:35)
[2018-04-01] MEDS: PRAMIPEXOLE 0.25 MG TABLET PO SCH (21:25)
[2018-04-01] MEDS: CIPROFLOXACIN 500 MG TABLET PO SCH (21:25)
[2018-04-01] MEDS: PANTOPRAZOLE 40 MG TABLET PO SCH (21:26)
[2018-04-01] MEDS: PRAVASTATIN 40 MG TABLET PO SCH (21:30)
[2018-04-02] MEDS: POTASSIUM CHLORIDE 10 MEQ TABLET PO SCH ×2 (02:47→16:55)
[2018-04-02 05:49] LABS: Basophils % 0.3 % (0.0-0.8); Eosinophils # 0.1 10*3/uL (0.0-0.87); Eosinophils % 1.5 % (0.00-10.9); Hematocrit 25.9 VOL% (35.7-47.0); Hemoglobin 8.4 GM/DL (12.0-16.0); Immature Granulocytes % 0.5 %; Immature Granulocytes Absolute 0.04 #; Lymphocytes # 2.2 10*3/uL (1.4-4.0); Lymphocytes % 29.4 % (21.3-54.2); Mean Corpuscular HGB Conc 32.4 GM/DL (32-36); Mean Corpuscular Hemoglobin 31 PG (27-34); Mean Corpuscular Volume 95.9 FL (87-102); Mean Platelet Volume 10.1 FL (9.6-12.0); Monocytes # 1.3 10*3/uL (0.11-0.8); NRBC # 0.02 10*3/uL; Neutrophils # 3.9 10*3/uL (1.4-7.4); Neutrophils % 51.3 % (38.7-73.9); Platelet Count 185 T/CUMM (130-400); Red Cell Distribution Width 18.2 % (9.3-17.3); White Blood Count 7.5 T/CUMM (4-12)
[2018-04-02] MEDS: LACTULOSE 20 GM/30 ML UDCUP PO SCH ×3 (05:58→21:04)
[2018-04-02 06:09] LABS: Albumin 1.7 G/DL (3.4-5.0); Bilirubin,Total 0.8 MG/DL (0.2-1.0); Calcium 7.2 MG/DL (8.5-10.1); Osmolality,Calculated 285.1 MOS/KG (273-304); Potassium 4.4 MMOL/L (3.5-5.1); Total Protein 4.9 G/DL (6.4-8.3)
[2018-04-02 06:26] LABS: Eosinophils 1 % (0-10); Total Cells Counted 100
[2018-04-02 06:29] LABS: Acanthocytes 1+; Anisocytosis 1+; Hypochromasia 2+; Lymphocytes 27 % (20-55); Macrocytosis 1+; Ovalocytes Few; Platelet Estimate Normal; Segmented Neutrophils 58 % (50-85); Target Cells 1+
[2018-04-02] MEDS: INSULIN REGULAR 100 UNIT/ML SUBCUT SCH ×4 (07:43→21:01)
[2018-04-02] MEDS: CARVEDILOL 3.125 MG TABLET PO SCH ×2 (08:23→20:58)
[2018-04-02] MEDS: FUROSEMIDE 40 MG TABLET PO SCH (08:23)
[2018-04-02] MEDS: metFORMIN 500 MG TABLET PO SCH ×2 (08:23→16:56)
[2018-04-02] MEDS: SPIRONOLACTONE 25 MG TABLET PO SCH ×2 (08:24→20:58)
[2018-04-02] MEDS: LISINOPRIL 10 MG TABLET PO SCH (08:24)
[2018-04-02] MEDS: CIPROFLOXACIN 500 MG TABLET PO SCH ×2 (08:24→20:58)
[2018-04-02] MEDS: THIAMINE 100 MG TABLET PO SCH (08:24)
[2018-04-02] MEDS: RIFAXIMIN 550 MG TABLET PO SCH ×2 (08:24→21:04)
[2018-04-02] MEDS: FERROUS SULFATE 325 MG TABLET PO SCH (08:24)
[2018-04-02] MEDS: PANTOPRAZOLE 40 MG TABLET PO SCH ×2 (08:25→20:58)
[2018-04-02] MEDS: FOLIC ACID 1 MG TABLET PO SCH (08:25)
[2018-04-02] MEDS: BACITRACIN OINT 0.9 GM PACK TOP SCH (14:23)
[2018-04-02] MEDS: ALUMINUM/MAGNES/SIMETH MAX STR 30 ML UDCUP PO PRN ×2 (14:23→20:57)
[2018-04-02] MEDS: ACETAMINOPHEN 325 MG TABLET PO PRN (16:55)
[2018-04-02] MEDS: PRAVASTATIN 40 MG TABLET PO SCH (20:58)
[2018-04-02] MEDS: PRAMIPEXOLE 0.25 MG TABLET PO SCH (20:58)
[2018-04-03] MEDS: POTASSIUM CHLORIDE 10 MEQ TABLET PO SCH (03:44)
[2018-04-03] MEDS: ACETAMINOPHEN 325 MG TABLET PO PRN (04:27)
[2018-04-03] MEDS: ALUMINUM/MAGNES/SIMETH MAX STR 30 ML UDCUP PO PRN (04:29)
[2018-04-03] MEDS: LACTULOSE 20 GM/30 ML UDCUP PO SCH (06:16)
[2018-04-03 06:57] LABS: Basophils % 0.3 % (0.0-0.8); Eosinophils # 0.2 10*3/uL (0.0-0.87); Eosinophils % 2.1 % (0.00-10.9); Hematocrit 26.4 VOL% (35.7-47.0); Hemoglobin 8.5 GM/DL (12.0-16.0); Immature Granulocytes % 0.3 %; Immature Granulocytes Absolute 0.02 #; Lymphocytes # 2.6 10*3/uL (1.4-4.0); Lymphocytes % 35.2 % (21.3-54.2); Mean Corpuscular HGB Conc 32.2 GM/DL (32-36); Mean Corpuscular Hemoglobin 31 PG (27-34); Mean Corpuscular Volume 96.4 FL (87-102); Mean Platelet Volume 9.8 FL (9.6-12.0); Monocytes # 1.3 10*3/uL (0.11-0.8); Monocytes % 17.7 % (1.7-12.7); NRBC # 0.02 10*3/uL; Neutrophils # 3.3 10*3/uL (1.4-7.4); Neutrophils % 44.4 % (38.7-73.9); Platelet Count 204 T/CUMM (130-400); Red Blood Count 2.74 MC/CUMM (3.8-5.5); Red Cell Distribution Width 18.3 % (9.3-17.3); White Blood Count 7.5 T/CUMM (4-12)
[2018-04-03 07:14] LABS: Calcium 7.1 MG/DL (8.5-10.1); Osmolality,Calculated 283.1 MOS/KG (273-304); Potassium 5.1 MMOL/L (3.5-5.1)
[2018-04-03 07:29] LABS: Anisocytosis 1+; Band Neutrophils 9 % (0-10); Eosinophils 3 % (0-10); Lymphocytes 21 % (20-55); Macrocytosis 1+; Platelet Estimate Normal; Poikilocytosis 1+; Segmented Neutrophils 48 % (50-85); Smudge Cells 1+; Total Cells Counted 100
[2018-04-03] MEDS: INSULIN REGULAR 100 UNIT/ML SUBCUT SCH ×2 (08:17→12:05)
[2018-04-03] MEDS: BACITRACIN OINT 0.9 GM PACK TOP SCH (09:10)
[2018-04-03] MEDS: CIPROFLOXACIN 500 MG TABLET PO SCH (09:10)
[2018-04-03] MEDS: PANTOPRAZOLE 40 MG TABLET PO SCH (09:10)
[2018-04-03] MEDS: CARVEDILOL 3.125 MG TABLET PO SCH (09:11)
[2018-04-03] MEDS: THIAMINE 100 MG TABLET PO SCH (09:11)
[2018-04-03] MEDS: FOLIC ACID 1 MG TABLET PO SCH (09:11)
[2018-04-03] MEDS: metFORMIN 500 MG TABLET PO SCH (09:11)
[2018-04-03] MEDS: SPIRONOLACTONE 25 MG TABLET PO SCH (09:11)
[2018-04-03] MEDS: LISINOPRIL 10 MG TABLET PO SCH ×2 (09:11→09:13)
[2018-04-03] MEDS: RIFAXIMIN 550 MG TABLET PO SCH (09:11)
[2018-04-03] MEDS: FUROSEMIDE 40 MG TABLET PO SCH (09:11)
[2018-04-03] MEDS: FERROUS SULFATE 325 MG TABLET PO SCH (09:11)
[2018-04-03] MEDS ORDERED: FUROSEMIDE 20 MG TABLET PO SCH (09:37)
[2018-04-03 12:09] VITALS: BP 98/73
[2018-04-03] MEDS ORDERED: LACTULOSE 20 GM/30 ML UDCUP PO SCH (21:00)
== END 2018-04-03 14:05 | DRG 372 ==
LOC: SUATTDRO 12:17 → INTOOBSV 12:17 → N.CC 12:17 → N.4E 15:29
PROVIDERS: ADMIT Internal Medicine; ATTEND Internal Medicine

== ENCOUNTER 2019-03-18 09:18 | Inpatient (IN) ==
[2019-03-18 12:25] LABS: Basophils % 0.3 % (0.0-0.8); Hematocrit 26.8 VOL% (35.7-47.0); Hemoglobin 9.3 GM/DL (12.0-16.0); Immature Granulocytes % 0.9 %; Immature Granulocytes Absolute 0.09 #; Lymphocytes # 2.1 10*3/uL (1.4-4.0); Lymphocytes % 19.8 % (21.3-54.2); Mean Corpuscular HGB Conc 34.7 GM/DL (32-36); Mean Corpuscular Volume 101.9 FL (87-102); Mean Platelet Volume 11.4 FL (9.6-12.0); Monocytes % 8.8 % (1.7-12.7); NRBC # 0.07 10*3/uL; Neutrophils % 70.2 % (38.7-73.9); Platelet Count 199 T/CUMM (130-400); Red Blood Count 2.63 MC/CUMM (3.8-5.5); Red Cell Distribution Width 13.7 % (9.3-17.3); White Blood Count 10.3 T/CUMM (4-12)
[2019-03-18] MEDS: ONDANSETRON 4 MG/2 ML VIAL IV PRN ×2 (12:31→20:02)
[2019-03-18] MEDS: MORPHINE 4 MG/1 ML VIAL IV PRN ×2 (12:32→20:02)
[2019-03-18] MEDS: SODIUM CHLORIDE 0.9% 1,000 ML IV SCH ×2 (12:32→20:56)
[2019-03-18 13:01] LABS: Calcium 7.9 MG/DL (8.5-10.1); Osmolality,Calculated 279.2 MOS/KG (273-304)
[2019-03-18] MEDS ORDERED: chlordiazePOXIDE 10 MG CAPSULE PO PRN (14:04)
[2019-03-18] MEDS ORDERED: GLUCAGON 1 MG VIAL IM PRN (14:05)
[2019-03-18] MEDS ORDERED: DEXTROSE 50% 25 GM/50 ML VIAL IV PRN (14:05)
[2019-03-18 15:14] LABS: INR 1.2; PT Patient Result 12.7 SECS (9.6-12.2)
[2019-03-18 15:26] LABS: Albumin 1.7 G/DL (3.4-5.0); Bilirubin,Total 1.5 MG/DL (0.2-1.0); Calcium 7.4 MG/DL (8.5-10.1); Total Protein 6.1 G/DL (6.4-8.3)
[2019-03-18] MEDS ORDERED: PROPOFOL 200 MG/20 ML VIAL IV ONE (16:17)
[2019-03-18] MEDS ORDERED: LIDOCAINE 2% 5 ML VIAL ONE (16:17)
[2019-03-18] MEDS: INSULIN REGULAR 100 UNIT/ML SUBCUT SCH ×2 (17:13→20:54)
[2019-03-18] MEDS: THIAMINE INJ 100 MG, FOLIC ACID INJ 1 MG, MULTIVITAMIN INJ 10 ML in SODIUM CHLORIDE 0.9... IV SCH (17:18)
[2019-03-18 19:02] LABS: Hematocrit 22.8 VOL% (35.7-47.0); Hemoglobin 7.8 GM/DL (12.0-16.0)
[2019-03-18] MEDS ORDERED: SODIUM CHLORIDE 0.9% 1,000 ML IV PRN (20:38)
[2019-03-19] MEDS: MORPHINE 4 MG/1 ML VIAL IV PRN ×4 (00:20→19:35)
[2019-03-19] MEDS: SODIUM CHLORIDE 0.9% 1,000 ML IV SCH ×3 (04:34→19:37)
[2019-03-19] MEDS: ONDANSETRON 4 MG/2 ML VIAL IV PRN ×3 (06:05→23:41)
[2019-03-19 07:04] LABS: Hematocrit 27.5 VOL% (35.7-47.0); Hemoglobin 9.3 GM/DL (12.0-16.0)
[2019-03-19 07:38] LABS: Calcium 7.2 MG/DL (8.5-10.1); Osmolality,Calculated 280.7 MOS/KG (273-304)
[2019-03-19] MEDS: INSULIN REGULAR 100 UNIT/ML SUBCUT SCH ×4 (10:59→21:07)
[2019-03-19 12:29] LABS: Hematocrit 27.5 VOL% (35.7-47.0); Hemoglobin 9.3 GM/DL (12.0-16.0)
[2019-03-19] MEDS: PANTOPRAZOLE 40 MG VIAL IV SCH (14:50)
[2019-03-19] MEDS: THIAMINE INJ 100 MG, FOLIC ACID INJ 1 MG, MULTIVITAMIN INJ 10 ML in SODIUM CHLORIDE 0.9... IV SCH (14:50)
[2019-03-20] MEDS: SODIUM CHLORIDE 0.9% 1,000 ML IV SCH ×2 (03:10→14:30)
[2019-03-20] MEDS: ONDANSETRON 4 MG/2 ML VIAL IV PRN ×3 (05:36→21:27)
[2019-03-20 05:58] LABS: Basophils # 0.1 10*3/uL (0.0-0.2); Basophils % 0.5 % (0.0-0.8); Eosinophils # 0.1 10*3/uL (0.0-0.87); Eosinophils % 0.9 % (0.00-10.9); Hematocrit 29.9 VOL% (35.7-47.0); Hemoglobin 9.6 GM/DL (12.0-16.0); Immature Granulocytes % 3.1 %; Immature Granulocytes Absolute 0.34 #; Lymphocytes % 35.5 % (21.3-54.2); Mean Corpuscular HGB Conc 32.1 GM/DL (32-36); Mean Corpuscular Volume 104.2 FL (87-102); Mean Platelet Volume 11.8 FL (9.6-12.0); Monocytes % 11.8 % (1.7-12.7); NRBC # 0.56 10*3/uL; Neutrophils % 48.2 % (38.7-73.9); Platelet Count 103 T/CUMM (130-400); Red Blood Count 2.87 MC/CUMM (3.8-5.5); Red Cell Distribution Width 15.9 % (9.3-17.3); White Blood Count 11.1 T/CUMM (4-12)
[2019-03-20 06:28] LABS: Calcium 7.1 MG/DL (8.5-10.1); Osmolality,Calculated 283.1 MOS/KG (273-304)
[2019-03-20] MEDS: INSULIN REGULAR 100 UNIT/ML SUBCUT SCH ×4 (08:09→20:29)
[2019-03-20] MEDS ORDERED: ceFAZolin 1,000 MG VIAL ONE (08:15)
[2019-03-20] MEDS ORDERED: SEVOFLURANE 1 UNIT/15 MINUTE INH ONE (09:59)
[2019-03-20] MEDS ORDERED: PROPOFOL 200 MG/20 ML VIAL IV ONE (09:59)
[2019-03-20] MEDS ORDERED: LIDOCAINE 2% 5 ML VIAL ONE (09:59)
[2019-03-20] MEDS ORDERED: ONDANSETRON 4 MG/2 ML VIAL ONE (10:00)
[2019-03-20] MEDS ORDERED: fentaNYL 100 MCG/2 ML VIAL ONE (10:00)
[2019-03-20] MEDS ORDERED: MIDAZOLAM 2 MG/2 ML VIAL ONE (10:00)
[2019-03-20] MEDS ORDERED: HYDROmorphone 2 MG/1 ML VIAL ONE (10:00)
[2019-03-20] MEDS ORDERED: ETOMIDATE 40 MG/20 ML VIAL IV ONE (10:00)
[2019-03-20] MEDS ORDERED: SUCCINYLCHOLINE 200 MG/10 ML VIAL ONE (10:01)
[2019-03-20] MEDS ORDERED: SODIUM CHLORIDE 0.9% 1,000 ML IV ONE (10:01)
[2019-03-20] MEDS ORDERED: ACETAMINOPHEN 1,000 MG/100 ML VIAL IV ONE (10:01)
[2019-03-20] MEDS ORDERED: ROCURONIUM 100 MG/10 ML VIAL IV ONE (10:01)
[2019-03-20] MEDS: PANTOPRAZOLE 40 MG VIAL IV SCH (10:36)
[2019-03-20] MEDS ORDERED: ONDANSETRON 4 MG/2 ML VIAL IV PRN (10:37)
[2019-03-20] MEDS ORDERED: HYDROmorphone 2 MG/1 ML VIAL IV PRN (10:37)
[2019-03-20] MEDS: MORPHINE 4 MG/1 ML VIAL IV PRN ×3 (12:30→21:27)
[2019-03-20] MEDS: THIAMINE INJ 100 MG, FOLIC ACID INJ 1 MG, MULTIVITAMIN INJ 10 ML in SODIUM CHLORIDE 0.9... IV SCH (14:30)
[2019-03-21] MEDS: SODIUM CHLORIDE 0.9% 1,000 ML IV SCH ×3 (00:53→12:00)
[2019-03-21] MEDS: MORPHINE 4 MG/1 ML VIAL IV PRN ×5 (01:30→19:53)
[2019-03-21] MEDS ORDERED: MORPHINE 4 MG/1 ML VIAL IV ONE (02:07)
[2019-03-21 05:41] LABS: Basophils % 0.2 % (0.0-0.8); Eosinophils # 0.1 10*3/uL (0.0-0.87); Hematocrit 25.8 VOL% (35.7-47.0); Hemoglobin 8.5 GM/DL (12.0-16.0); Immature Granulocytes % 1.4 %; Immature Granulocytes Absolute 0.17 #; Lymphocytes # 3.9 10*3/uL (1.4-4.0); Lymphocytes % 31.5 % (21.3-54.2); Mean Corpuscular HGB Conc 32.9 GM/DL (32-36); Mean Corpuscular Volume 101.2 FL (87-102); Monocytes % 12.1 % (1.7-12.7); NRBC # 0.64 10*3/uL; Neutrophils % 53.8 % (38.7-73.9); Platelet Count 157 T/CUMM (130-400); Red Blood Count 2.55 MC/CUMM (3.8-5.5); Red Cell Distribution Width 15.9 % (9.3-17.3); White Blood Count 12.4 T/CUMM (4-12)
[2019-03-21 06:06] LABS: Albumin 1.4 G/DL (3.4-5.0); Calcium 6.5 MG/DL (8.5-10.1); Total Protein 5.1 G/DL (6.4-8.3)
[2019-03-21] MEDS: ONDANSETRON 4 MG/2 ML VIAL IV PRN ×2 (06:48→19:53)
[2019-03-21] MEDS: INSULIN REGULAR 100 UNIT/ML SUBCUT SCH ×4 (09:26→23:06)
[2019-03-21] MEDS: PANTOPRAZOLE 40 MG VIAL IV SCH (09:28)
[2019-03-21] MEDS: DOCUSATE/SENNA 50-8.6 MG TABLET PO SCH ×2 (12:08→21:25)
[2019-03-21] MEDS: THIAMINE INJ 100 MG, FOLIC ACID INJ 1 MG, MULTIVITAMIN INJ 10 ML in SODIUM CHLORIDE 0.9... IV SCH (15:31)
[2019-03-22] MEDS: MORPHINE 4 MG/1 ML VIAL IV PRN ×4 (00:15→21:33)
[2019-03-22] MEDS: SODIUM CHLORIDE 0.9% 1,000 ML IV SCH ×3 (03:32→14:25)
[2019-03-22 05:51] LABS: Basophils % 0.3 % (0.0-0.8); Eosinophils # 0.2 10*3/uL (0.0-0.87); Eosinophils % 1.8 % (0.00-10.9); Hematocrit 26.1 VOL% (35.7-47.0); Hemoglobin 8.8 GM/DL (12.0-16.0); Immature Granulocytes % 1.1 %; Immature Granulocytes Absolute 0.12 #; Lymphocytes # 3.6 10*3/uL (1.4-4.0); Lymphocytes % 33.3 % (21.3-54.2); Mean Corpuscular HGB Conc 33.7 GM/DL (32-36); Mean Platelet Volume 9.9 FL (9.6-12.0); Monocytes % 14.6 % (1.7-12.7); NRBC # 0.43 10*3/uL; Neutrophils % 48.9 % (38.7-73.9); Platelet Count 160 T/CUMM (130-400); Red Blood Count 2.61 MC/CUMM (3.8-5.5); Red Cell Distribution Width 16.2 % (9.3-17.3); White Blood Count 10.8 T/CUMM (4-12)
[2019-03-22 06:07] LABS: Calcium 6.6 MG/DL (8.5-10.1); Osmolality,Calculated 282.8 MOS/KG (273-304)
[2019-03-22] MEDS: ONDANSETRON 4 MG/2 ML VIAL IV PRN (06:53)
[2019-03-22] MEDS: INSULIN REGULAR 100 UNIT/ML SUBCUT SCH ×3 (08:13→17:22)
[2019-03-22] MEDS: PANTOPRAZOLE 40 MG VIAL IV SCH (09:09)
[2019-03-22] MEDS ORDERED: POTASSIUM CHLORIDE RIDER 10 MEQ in PREMIX 1 EACH IV ONE (10:24)
[2019-03-22] MEDS: DOCUSATE/SENNA 50-8.6 MG TABLET PO SCH ×2 (11:15→21:33)
[2019-03-22] MEDS: THIAMINE INJ 100 MG, FOLIC ACID INJ 1 MG, MULTIVITAMIN INJ 10 ML in SODIUM CHLORIDE 0.9... IV SCH (15:29)
[2019-03-23] MEDS: INSULIN REGULAR 100 UNIT/ML SUBCUT SCH ×5 (00:58→21:31)
[2019-03-23] MEDS: MORPHINE 4 MG/1 ML VIAL IV PRN ×3 (04:21→18:03)
[2019-03-23 05:15] LABS: Basophils % 0.2 % (0.0-0.8); Eosinophils # 0.2 10*3/uL (0.0-0.87); Eosinophils % 2.8 % (0.00-10.9); Hematocrit 26.1 VOL% (35.7-47.0); Hemoglobin 8.6 GM/DL (12.0-16.0); Immature Granulocytes % 0.8 %; Immature Granulocytes Absolute 0.07 #; Lymphocytes # 3.2 10*3/uL (1.4-4.0); Lymphocytes % 36.2 % (21.3-54.2); Mean Corpuscular Volume 101.2 FL (87-102); Mean Platelet Volume 9.9 FL (9.6-12.0); Monocytes % 14.7 % (1.7-12.7); NRBC # 0.33 10*3/uL; Neutrophils % 45.3 % (38.7-73.9); Platelet Count 159 T/CUMM (130-400); Red Blood Count 2.58 MC/CUMM (3.8-5.5); White Blood Count 8.7 T/CUMM (4-12)
[2019-03-23 05:44] LABS: Calcium 6.7 MG/DL (8.5-10.1)
[2019-03-23] MEDS: SODIUM CHLORIDE 0.9% 1,000 ML IV SCH ×4 (07:58→21:31)
[2019-03-23] MEDS ORDERED: LACTATED RINGERS 1,000 ML IV SCH (08:00)
[2019-03-23] MEDS: PANTOPRAZOLE 40 MG VIAL IV SCH (08:27)
[2019-03-23] MEDS ORDERED: ETOMIDATE 20 MG/10 ML VIAL IV ONE (09:00)
[2019-03-23] MEDS ORDERED: PROPOFOL 200 MG/20 ML VIAL IV ONE (09:00)
[2019-03-23] MEDS ORDERED: LIDOCAINE 2% 5 ML VIAL ONE (09:00)
[2019-03-23] MEDS: DOCUSATE/SENNA 50-8.6 MG TABLET PO SCH ×2 (15:13→21:31)
[2019-03-23] MEDS ORDERED: POTASSIUM CHLORIDE 20 MEQ TABLET PO ONE (15:19)
[2019-03-23] MEDS: THIAMINE INJ 100 MG, FOLIC ACID INJ 1 MG, MULTIVITAMIN INJ 10 ML in SODIUM CHLORIDE 0.9... IV SCH (15:21)
[2019-03-24] MEDS: MORPHINE 4 MG/1 ML VIAL IV PRN (02:41)
[2019-03-24] MEDS: SODIUM CHLORIDE 0.9% 1,000 ML IV SCH (04:57)
[2019-03-24] MEDS: INSULIN REGULAR 100 UNIT/ML SUBCUT SCH (07:45)
[2019-03-24 08:04] VITALS: BP 143/63
[2019-03-24] MEDS: DOCUSATE/SENNA 50-8.6 MG TABLET PO SCH (08:04)
[2019-03-24] MEDS: PANTOPRAZOLE 40 MG VIAL IV SCH (08:04)
== END 2019-03-24 11:11 | disposition home or self-care (01) | DRG 950 ==
LOC: N.3E → SUATTDRO 12:01
PROVIDERS: ADMIT Internal Medicine; ATTEND Hospitalist

== ENCOUNTER 2019-07-21 14:28 | Inpatient (IN) ==
[2019-07-21] MEDS ORDERED: SODIUM CHLORIDE 0.9% 1,000 ML IV STA (14:47)
[2019-07-21] MEDS ORDERED: PANTOPRAZOLE 40 MG VIAL IV STA (14:47)
[2019-07-21 15:54] LABS: Basophils % 0.4 % (0.0-0.8); Eosinophils # 0.2 10*3/uL (0.0-0.87); Hematocrit 37.7 VOL% (35.7-47.0); Hemoglobin 12.8 GM/DL (12.0-16.0); Immature Granulocytes % 0.3 %; Immature Granulocytes Absolute 0.03 #; Lymphocytes # 4.2 10*3/uL (1.4-4.0); Lymphocytes % 47.1 % (21.3-54.2); Mean Corpuscular Volume 96.9 FL (87-102); Mean Platelet Volume 11.1 FL (9.6-12.0); Monocytes % 9.6 % (1.7-12.7); Neutrophils % 40.6 % (38.7-73.9); Platelet Count 214 T/CUMM (130-400); Red Blood Count 3.89 MC/CUMM (3.8-5.5); Red Cell Distribution Width 16.3 % (9.3-17.3)
[2019-07-21 16:08] LABS: INR 1.1; PT Patient Result 11.5 SECS (9.6-12.2); Partial Thromboplastin Time 26.4 SECS (20.8-36.0)
[2019-07-21] MEDS ORDERED: ONDANSETRON 4 MG/2 ML VIAL IV PRN (17:09)
[2019-07-21] MEDS ORDERED: ACETAMINOPHEN 325 MG TABLET PO PRN (17:09)
[2019-07-21] MEDS ORDERED: LACTULOSE 20 GM/30 ML UDCUP PO PRN (17:11)
[2019-07-21] MEDS ORDERED: GLUCAGON 1 MG VIAL IM PRN (17:12)
[2019-07-21] MEDS ORDERED: DEXTROSE 10% 250 ML BAG IV PRN (17:12)
[2019-07-21 17:53] LABS: Albumin 1.9 G/DL (3.4-5.0); Bilirubin,Total 0.9 MG/DL (0.2-1.0); Osmolality,Calculated 277.5 MOS/KG (273-304); Total Protein 7.8 G/DL (6.4-8.3)
[2019-07-21 19:26] LABS: Hematocrit 37.3 VOL% (35.7-47.0); Hemoglobin 12.7 GM/DL (12.0-16.0)
[2019-07-21] MEDS: PANTOPRAZOLE 40 MG TABLET PO SCH (20:52)
[2019-07-21] MEDS: THIAMINE 100 MG TABLET PO SCH (20:52)
[2019-07-21] MEDS: FOLIC ACID 1 MG TABLET PO SCH (20:52)
[2019-07-21] MEDS: RIFAXIMIN 550 MG TABLET PO SCH (20:53)
[2019-07-21] MEDS: INSULIN LISPRO 100 UNIT/ML SUBCUT SCH (21:04)
[2019-07-21 22:46] LABS: Apearance,Urine CLEAR (Clear); Bilirubin,Urine Negative (Negative); Blood, Urine Negative (Negative); Glucose,Urine (UA) Negative (Negative); Ketones,Urine Negative (Negative); Mucus,Urine Occasional /LPF (Occasional); Nitrite,Urine Negative (Negative); Protein,Urine Negative; RBC,Urine <1 /HPF (0-4); Squamous Epithelial Cell,Urine Occasional /HPF (0-10); Urine Color Yellow (Yellow); Urine Specific Gravity 1.006 (1.001-1.035); Urine Urobilinogen < 2.0 EU/DL (0.2-1.0); WBC,Urine 3 /HPF (0-6)
[2019-07-22 05:50] LABS: Basophils % 0.4 % (0.0-0.8); Eosinophils # 0.2 10*3/uL (0.0-0.87); Eosinophils % 2.8 % (0.00-10.9); Hematocrit 33.7 VOL% (35.7-47.0); Hemoglobin 11.6 GM/DL (12.0-16.0); Immature Granulocytes % 0.3 %; Immature Granulocytes Absolute 0.02 #; Lymphocytes # 3.3 10*3/uL (1.4-4.0); Lymphocytes % 46.5 % (21.3-54.2); Mean Corpuscular HGB Conc 34.4 GM/DL (32-36); Mean Corpuscular Volume 95.5 FL (87-102); Mean Platelet Volume 10.8 FL (9.6-12.0); Monocytes % 10.4 % (1.7-12.7); Neutrophils % 39.6 % (38.7-73.9); Platelet Count 199 T/CUMM (130-400); Red Blood Count 3.53 MC/CUMM (3.8-5.5); White Blood Count 7.1 T/CUMM (4-12)
[2019-07-22 06:31] LABS: Calcium 7.8 MG/DL (8.5-10.1); Osmolality,Calculated 277.5 MOS/KG (273-304); Thyroid Stimulating Hormone 2.16 uIU/ml (0.358-3.74)
[2019-07-22] MEDS: INSULIN LISPRO 100 UNIT/ML SUBCUT SCH ×4 (06:50→20:40)
[2019-07-22] MEDS ORDERED: PANTOPRAZOLE 40 MG TABLET PO SCH (09:00)
[2019-07-22] MEDS: PANTOPRAZOLE 40 MG TABLET PO SCH ×2 (11:42→20:40)
[2019-07-22] MEDS: RIFAXIMIN 550 MG TABLET PO SCH ×2 (11:42→20:40)
[2019-07-22] MEDS: lisinopriL 10 MG TABLET PO SCH (11:42)
[2019-07-22] MEDS: FUROSEMIDE 20 MG TABLET PO SCH (11:43)
[2019-07-22] MEDS: FOLIC ACID 1 MG TABLET PO SCH (20:40)
[2019-07-22] MEDS: THIAMINE 100 MG TABLET PO SCH (20:40)
[2019-07-23 06:09] LABS: Basophils % 0.4 % (0.0-0.8); Eosinophils # 0.2 10*3/uL (0.0-0.87); Eosinophils % 2.4 % (0.00-10.9); Hematocrit 31.7 VOL% (35.7-47.0); Immature Granulocytes % 0.4 %; Immature Granulocytes Absolute 0.03 #; Lymphocytes % 52.3 % (21.3-54.2); Mean Corpuscular HGB Conc 34.7 GM/DL (32-36); Mean Corpuscular Volume 94.3 FL (87-102); Monocytes % 9.5 % (1.7-12.7); Platelet Count 201 T/CUMM (130-400); Red Blood Count 3.36 MC/CUMM (3.8-5.5); White Blood Count 7.6 T/CUMM (4-12)
[2019-07-23 06:44] LABS: Calcium 7.6 MG/DL (8.5-10.1); Osmolality,Calculated 280.7 MOS/KG (273-304)
[2019-07-23 07:05] LABS: Anisocytosis 1+; Atypical Lymphocytes Few; Band Neutrophils 6 % (0-10); Eosinophils 2 % (0-10); Lymphocytes 46 % (20-55); Macrocytosis 1+; Platelet Estimate Normal; Segmented Neutrophils 36 % (50-85); Smudge Cells Few; Total Cells Counted 100
[2019-07-23 07:06] LABS: Target Cells 1+
[2019-07-23] MEDS: RIFAXIMIN 550 MG TABLET PO SCH ×2 (09:44→20:29)
[2019-07-23] MEDS: FUROSEMIDE 20 MG TABLET PO SCH (09:44)
[2019-07-23] MEDS: INSULIN LISPRO 100 UNIT/ML SUBCUT SCH ×4 (09:44→20:29)
[2019-07-23] MEDS: lisinopriL 10 MG TABLET PO SCH (09:44)
[2019-07-23] MEDS: PANTOPRAZOLE 40 MG TABLET PO SCH ×2 (09:44→20:29)
[2019-07-23] MEDS: FOLIC ACID 1 MG TABLET PO SCH (20:29)
[2019-07-23] MEDS: THIAMINE 100 MG TABLET PO SCH (20:29)
[2019-07-24 06:29] LABS: Basophils % 0.4 % (0.0-0.8); Eosinophils # 0.2 10*3/uL (0.0-0.87); Eosinophils % 2.9 % (0.00-10.9); Hemoglobin 11.1 GM/DL (12.0-16.0); Immature Granulocytes % 0.3 %; Immature Granulocytes Absolute 0.02 #; Lymphocytes # 3.4 10*3/uL (1.4-4.0); Lymphocytes % 50.2 % (21.3-54.2); Mean Corpuscular HGB Conc 34.7 GM/DL (32-36); Mean Corpuscular Volume 95.8 FL (87-102); Mean Platelet Volume 11.3 FL (9.6-12.0); Monocytes % 11.1 % (1.7-12.7); Neutrophils % 35.1 % (38.7-73.9); Platelet Count 204 T/CUMM (130-400); Red Blood Count 3.34 MC/CUMM (3.8-5.5); Red Cell Distribution Width 16.1 % (9.3-17.3); White Blood Count 6.8 T/CUMM (4-12)
[2019-07-24 06:54] LABS: Calcium 7.8 MG/DL (8.5-10.1); Osmolality,Calculated 282.7 MOS/KG (273-304)
[2019-07-24 07:52] LABS: Anisocytosis 2+; Band Neutrophils 2 % (0-10); Eosinophils 7 % (0-10); Lymphocytes 48 % (20-55); Macrocytosis 1+; Platelet Estimate Normal; Segmented Neutrophils 37 % (50-85); Target Cells 1+; Total Cells Counted 100
[2019-07-24 07:53] LABS: Atypical Lymphocytes Few; Burr Cells Few; Poikilocytosis Slight
[2019-07-24] MEDS: PANTOPRAZOLE 40 MG TABLET PO SCH ×2 (09:31→20:48)
[2019-07-24] MEDS: RIFAXIMIN 550 MG TABLET PO SCH ×2 (09:31→20:48)
[2019-07-24] MEDS: FUROSEMIDE 20 MG TABLET PO SCH (09:31)
[2019-07-24] MEDS: lisinopriL 10 MG TABLET PO SCH (09:31)
[2019-07-24] MEDS: INSULIN LISPRO 100 UNIT/ML SUBCUT SCH ×4 (09:31→20:48)
[2019-07-24] MEDS ORDERED: BISACODYL 5 MG TABLET PO ONE (12:00)
[2019-07-24] MEDS ORDERED: POLYETHYLENE GLYCOL POWDER 255 GM BOTTLE PO ONE (17:00)
[2019-07-24] MEDS: FOLIC ACID 1 MG TABLET PO SCH (20:48)
[2019-07-24] MEDS: THIAMINE 100 MG TABLET PO SCH (20:48)
[2019-07-25] MEDS ORDERED: MAGNESIUM CITRATE 300 ML BOTTLE PO ONE (06:00)
[2019-07-25] MEDS ORDERED: LACTATED RINGERS 1,000 ML IV SCH (06:30)
[2019-07-25] MEDS: INSULIN LISPRO 100 UNIT/ML SUBCUT SCH ×2 (07:20→12:13)
[2019-07-25] MEDS ORDERED: ETOMIDATE 20 MG/10 ML VIAL IV ONE (09:00)
[2019-07-25] MEDS ORDERED: LIDOCAINE 2% 5 ML VIAL ONE (09:00)
[2019-07-25] MEDS ORDERED: propofoL 200 MG/20 ML VIAL IV ONE (09:00)
[2019-07-25] MEDS ORDERED: DEXTROSE 50% 25 GM/50 ML VIAL IV PRN (13:14)
[2019-07-25] MEDS ORDERED: GLUCAGON 1 MG VIAL IM PRN (13:14)
[2019-07-25 14:18] VITALS: BP 135/77
[2019-07-25] MEDS: lisinopriL 10 MG TABLET PO SCH (14:33)
[2019-07-25] MEDS: RIFAXIMIN 550 MG TABLET PO SCH (14:33)
[2019-07-25] MEDS: PANTOPRAZOLE 40 MG TABLET PO SCH (14:33)
[2019-07-25] MEDS: FUROSEMIDE 20 MG TABLET PO SCH (14:33)
== END 2019-07-25 15:40 | disposition home or self-care (01) | DRG 254 ==
LOC: N.ED 14:28 → N.EDINP 17:08 → SUATTDRO 17:08 → N.5E 18:03
PROVIDERS: ADMIT Internal Medicine; ATTEND Family Medicine

== ENCOUNTER 2022-03-17 11:28 | Inpatient (IN) ==
[2022-03-17] MEDS ORDERED: ALUM/MAG/SIMETH/LIDO VISC 1:1 30 ML BOTTLE PO STA (17:05)
[2022-03-17 17:41] LABS: Basophils % 0.2 % (0.0-0.8); Eosinophils # 0.1 10*3/uL (0.0-0.87); Eosinophils % 0.5 % (0.00-10.9); Hematocrit 24.4 VOL% (35.7-47.0); Hemoglobin 8.4 GM/DL (12.0-16.0); Immature Granulocytes % 0.6 %; Immature Granulocytes Absolute 0.07 #; Lymphocytes # 2.9 10*3/uL (1.4-4.0); Lymphocytes % 26.2 % (21.3-54.2); Mean Corpuscular HGB Conc 34.4 GM/DL (32-36); Mean Corpuscular Volume 95.7 FL (87-102); NRBC # 0.06 10*3/uL; Neutrophils % 63.5 % (38.7-73.9); Platelet Count 56 T/CUMM (130-400); Red Blood Count 2.55 MC/CUMM (3.8-5.5)
[2022-03-17 17:52] LABS: INR 1.7; PT Patient Result 18.2 SECS (10.1-12.1)
[2022-03-17 17:59] LABS: Albumin 1.1 G/DL (3.4-5.0); Bilirubin,Total 4.6 MG/DL (0.20-1.00); Calcium 7.9 MG/DL (8.5-10.1); Osmolality,Calculated 274.2 MOS/KG (273-304); Potassium 4.3 MMOL/L (3.5-5.1); Total Protein 8.3 G/DL (6.4-8.2)
[2022-03-17] MEDS ORDERED: SODIUM CHLORIDE 0.9% 1,000 ML IV STA (18:23)
[2022-03-17 18:59] LABS: Hyaline Casts,Urine 58 /LPF (0-3); Mucus,Urine Few /LPF (Occasional); Protein,Urine Trace mg/dL (Negative); RBC,Urine 8 /HPF (0-4); Squamous Epithelial Cell,Urine Few /HPF (0-10); Urine Appearance Clear (Clear); Urine Color Yellow (Yellow)
[2022-03-17 19:00] LABS: Bilirubin,Urine Moderate mg/dL (Negative); Blood, Urine Moderate mg/dL (Negative); Glucose,Urine (UA) Negative (Negative); Ketones,Urine Trace mg/dL (Negative); Nitrite,Urine Negative (Negative)
[2022-03-17] MEDS ORDERED: PANTOPRAZOLE 40 MG VIAL IV STA (19:39)
[2022-03-17] MEDS ORDERED: hydrALAZINE 20 MG/1 ML VIAL IV PRN (20:06)
[2022-03-17] MEDS ORDERED: ONDANSETRON 4 MG/2 ML VIAL IV PRN (20:06)
[2022-03-17] MEDS: THIAMINE 100 MG TABLET PO SCH (22:52)
[2022-03-17] MEDS: LACTULOSE 20 GM/30 ML UDCUP PO SCH (22:52)
[2022-03-18 06:01] LABS: Basophils % 0.3 % (0.0-0.8); Eosinophils # 0.1 10*3/uL (0.0-0.87); Eosinophils % 0.9 % (0.00-10.9); Hematocrit 20.2 VOL% (35.7-47.0); Hemoglobin 7.1 GM/DL (12.0-16.0); Immature Granulocytes % 1.2 %; Immature Granulocytes Absolute 0.11 #; Lymphocytes # 2.9 10*3/uL (1.4-4.0); Lymphocytes % 29.9 % (21.3-54.2); Mean Corpuscular HGB Conc 35.1 GM/DL (32-36); Mean Corpuscular Volume 95.3 FL (87-102); Mean Platelet Volume 10.5 FL (9.6-12.0); Monocytes % 10.9 % (1.7-12.7); NRBC # 0.06 10*3/uL; Neutrophils % 56.8 % (38.7-73.9); Platelet Count 105 T/CUMM (130-400); Red Blood Count 2.12 MC/CUMM (3.8-5.5); Red Cell Distribution Width 20.4 % (9.3-17.3); White Blood Count 9.5 T/CUMM (4-12)
[2022-03-18 06:18] LABS: Albumin 1.1 G/DL (3.4-5.0); Calcium 7.9 MG/DL (8.5-10.1); Osmolality,Calculated 279.7 MOS/KG (273-304); Potassium 3.9 MMOL/L (3.5-5.1); Total Protein 7.2 G/DL (6.4-8.2)
[2022-03-18] MEDS ORDERED: SODIUM CHLORIDE 0.9% 1,000 ML IV PRN (07:36)
[2022-03-18 07:58] LABS: % Iron Saturation 69.2 % (18-50); Ferritin 272.4 ng/mL (8-252)
[2022-03-18 08:14] LABS: Folate 8.69 NG/ML (5.38-24.0)
[2022-03-18] MEDS: PANTOPRAZOLE 40 MG VIAL IV SCH ×2 (10:14→20:51)
[2022-03-18] MEDS: BACITRACIN/POLYMYXIN OINT 14.17 GM TUBE TOP SCH (10:15)
[2022-03-18] MEDS: SPIRONOLACTONE 25 MG TABLET PO SCH (10:15)
[2022-03-18] MEDS: LACTULOSE 20 GM/30 ML UDCUP PO SCH ×2 (10:15→20:53)
[2022-03-18] MEDS: FUROSEMIDE 40 MG TABLET PO SCH (10:15)
[2022-03-18] MEDS: DULoxetine 30 MG CAPSULE PO SCH (10:15)
[2022-03-18 15:17] LABS: RBC,Peritoneal Fluid 556 T/CUMM
[2022-03-18 17:18] LABS: Neutrophils,Peritoneal Fluid 70 %
[2022-03-18] MEDS: THIAMINE 100 MG TABLET PO SCH (20:53)
[2022-03-19 06:19] LABS: Basophils % 0.6 % (0.0-0.8); Eosinophils # 0.1 10*3/uL (0.0-0.87); Eosinophils % 1.7 % (0.00-10.9); Hematocrit 26.1 VOL% (35.7-47.0); Hemoglobin 9.1 GM/DL (12.0-16.0); Immature Granulocytes % 1.5 %; Immature Granulocytes Absolute 0.11 #; Lymphocytes # 2.9 10*3/uL (1.4-4.0); Lymphocytes % 40.1 % (21.3-54.2); Mean Corpuscular HGB Conc 34.9 GM/DL (32-36); Mean Corpuscular Volume 90.3 FL (87-102); Monocytes # 0.9 10*3/uL (0.11-0.8); Monocytes % 12.1 % (1.7-12.7); NRBC # 0.07 10*3/uL; Platelet Count 107 T/CUMM (130-400); Red Blood Count 2.89 MC/CUMM (3.8-5.5); Red Cell Distribution Width 21.5 % (9.3-17.3); White Blood Count 7.2 T/CUMM (4-12)
[2022-03-19 06:28] LABS: INR 1.9; PT Patient Result 19.8 SECS (10.1-12.1)
[2022-03-19 06:44] LABS: Albumin 1.1 G/DL (3.4-5.0); Bilirubin,Total 3.5 MG/DL (0.20-1.00); Calcium 7.6 MG/DL (8.5-10.1); Osmolality,Calculated 277.8 MOS/KG (273-304); Potassium 3.3 MMOL/L (3.5-5.1)
[2022-03-19] MEDS: BACITRACIN/POLYMYXIN OINT 14.17 GM TUBE TOP SCH (08:56)
[2022-03-19] MEDS: PANTOPRAZOLE 40 MG VIAL IV SCH ×2 (08:56→21:35)
[2022-03-19] MEDS: LACTATED RINGERS 1,000 ML IV SCH (10:53)
[2022-03-19] MEDS ORDERED: propofoL 200 MG/20 ML VIAL IV ONE (13:51)
[2022-03-19] MEDS ORDERED: ETOMIDATE 20 MG/10 ML VIAL IV ONE (13:51)
[2022-03-19] MEDS ORDERED: LIDOCAINE 2% 5 ML VIAL ONE (13:51)
[2022-03-19] MEDS: SPIRONOLACTONE 25 MG TABLET PO SCH (15:24)
[2022-03-19] MEDS: FUROSEMIDE 40 MG TABLET PO SCH (15:24)
[2022-03-19] MEDS: DULoxetine 30 MG CAPSULE PO SCH (15:24)
[2022-03-19] MEDS: LACTULOSE 20 GM/30 ML UDCUP PO SCH ×2 (15:24→21:34)
[2022-03-19] MEDS: THIAMINE 100 MG TABLET PO SCH (21:35)
[2022-03-20 05:36] LABS: Basophils % 0.3 % (0.0-0.8); Eosinophils # 0.1 10*3/uL (0.0-0.87); Eosinophils % 2.4 % (0.00-10.9); Hematocrit 27.1 VOL% (35.7-47.0); Hemoglobin 9.7 GM/DL (12.0-16.0); Immature Granulocytes % 0.8 %; Immature Granulocytes Absolute 0.05 #; Lymphocytes # 2.7 10*3/uL (1.4-4.0); Lymphocytes % 46.1 % (21.3-54.2); Mean Corpuscular HGB Conc 35.8 GM/DL (32-36); Mean Corpuscular Volume 90.3 FL (87-102); Monocytes # 0.8 10*3/uL (0.11-0.8); Monocytes % 13.2 % (1.7-12.7); NRBC # 0.06 10*3/uL; Neutrophils % 37.2 % (38.7-73.9); Platelet Count 102 T/CUMM (130-400); Red Cell Distribution Width 21.5 % (9.3-17.3); White Blood Count 5.9 T/CUMM (4-12)
[2022-03-20 06:00] LABS: Bilirubin,Total 3.7 MG/DL (0.20-1.00); Calcium 7.7 MG/DL (8.5-10.1); Potassium 3.2 MMOL/L (3.5-5.1)
[2022-03-20 06:02] LABS: Band Neutrophils 1 % (0-10); Eosinophils 4 % (0-10); Lymphocytes 41 % (20-55); Nucleated Red Blood Cells 1 /100 WBC (0-5); Target Cells Few; Total Cells Counted 100
[2022-03-20 06:03] LABS: Anisocytosis 1+; Burr Cells Slight; Polychromasia Slight
[2022-03-20 06:04] LABS: Platelet Estimate Decreased
[2022-03-20] MEDS ORDERED: POTASSIUM CHLORIDE 20 MEQ TABLET PO ONE (08:19)
[2022-03-20] MEDS: DULoxetine 30 MG CAPSULE PO SCH (09:35)
[2022-03-20] MEDS: FUROSEMIDE 40 MG TABLET PO SCH (09:35)
[2022-03-20] MEDS: PANTOPRAZOLE 40 MG VIAL IV SCH ×2 (09:41→21:31)
[2022-03-20] MEDS: SPIRONOLACTONE 25 MG TABLET PO SCH (09:43)
[2022-03-20] MEDS: LACTULOSE 20 GM/30 ML UDCUP PO SCH ×2 (09:43→21:31)
[2022-03-20] MEDS: LACTATED RINGERS 1,000 ML IV SCH (09:56)
[2022-03-20] MEDS: BACITRACIN/POLYMYXIN OINT 14.17 GM TUBE TOP SCH (10:00)
[2022-03-20] MEDS ORDERED: BISACODYL 5 MG TABLET PO ONE (15:00)
[2022-03-20] MEDS ORDERED: POLYETHYLENE GLYCOL POWDER 255 GM BOTTLE PO ONE (18:00)
[2022-03-20] MEDS: THIAMINE 100 MG TABLET PO SCH (21:31)
[2022-03-21] MEDS ORDERED: POLYETHYLENE GLYCOL POWDER 255 GM BOTTLE PO ONE ×2 (05:00→07:00)
[2022-03-21 05:33] LABS: Basophils % 0.6 % (0.0-0.8); Eosinophils # 0.1 10*3/uL (0.0-0.87); Eosinophils % 1.5 % (0.00-10.9); Hematocrit 26.9 VOL% (35.7-47.0); Hemoglobin 9.2 GM/DL (12.0-16.0); Immature Granulocytes Absolute 0.05 #; Lymphocytes # 1.9 10*3/uL (1.4-4.0); Lymphocytes % 39.6 % (21.3-54.2); Mean Corpuscular HGB Conc 34.2 GM/DL (32-36); Mean Corpuscular Volume 90.6 FL (87-102); Monocytes # 0.7 10*3/uL (0.11-0.8); Monocytes % 15.1 % (1.7-12.7); NRBC # 0.05 10*3/uL; Neutrophils % 42.2 % (38.7-73.9); Platelet Count 89 T/CUMM (130-400); Red Blood Count 2.97 MC/CUMM (3.8-5.5); Red Cell Distribution Width 21.1 % (9.3-17.3); White Blood Count 4.8 T/CUMM (4-12)
[2022-03-21 05:39] LABS: INR 1.9; PT Patient Result 19.8 SECS (10.1-12.1)
[2022-03-21 05:59] LABS: Calcium 7.5 MG/DL (8.5-10.1); Osmolality,Calculated 267.2 MOS/KG (273-304); Potassium 3.5 MMOL/L (3.5-5.1)
[2022-03-21 06:10] LABS: Platelet Estimate Decreased
[2022-03-21] MEDS ORDERED: LACTATED RINGERS 1,000 ML IV SCH (08:00)
[2022-03-21] MEDS ORDERED: propofoL 200 MG/20 ML VIAL IV ONE (12:30)
[2022-03-21] MEDS ORDERED: ETOMIDATE 20 MG/10 ML VIAL IV ONE (12:30)
[2022-03-21] MEDS ORDERED: LIDOCAINE 2% 5 ML VIAL ONE (12:30)
[2022-03-21] MEDS: LACTATED RINGERS 1,000 ML IV SCH (17:04)
[2022-03-21] MEDS: SPIRONOLACTONE 25 MG TABLET PO SCH (17:05)
[2022-03-21] MEDS: LACTULOSE 20 GM/30 ML UDCUP PO SCH ×2 (17:05→20:55)
[2022-03-21] MEDS: PANTOPRAZOLE 40 MG VIAL IV SCH ×2 (17:05→20:55)
[2022-03-21] MEDS: FUROSEMIDE 40 MG TABLET PO SCH (17:06)
[2022-03-21] MEDS: BACITRACIN/POLYMYXIN OINT 14.17 GM TUBE TOP SCH (17:06)
[2022-03-21] MEDS: DULoxetine 30 MG CAPSULE PO SCH (17:06)
[2022-03-21] MEDS: THIAMINE 100 MG TABLET PO SCH (20:55)
[2022-03-21] MEDS ORDERED: MORPHINE 2 MG/1 ML SYRINGE IV ONE (21:44)
[2022-03-22 04:47] LABS: Basophils % 0.6 % (0.0-0.8); Eosinophils # 0.1 10*3/uL (0.0-0.87); Eosinophils % 1.8 % (0.00-10.9); Hematocrit 27.6 VOL% (35.7-47.0); Hemoglobin 9.4 GM/DL (12.0-16.0); Immature Granulocytes % 0.7 %; Immature Granulocytes Absolute 0.04 #; Lymphocytes # 2.2 10*3/uL (1.4-4.0); Mean Corpuscular HGB Conc 34.1 GM/DL (32-36); Mean Corpuscular Volume 91.4 FL (87-102); Monocytes # 0.8 10*3/uL (0.11-0.8); NRBC # 0.02 10*3/uL; Neutrophils % 41.9 % (38.7-73.9); Platelet Count 88 T/CUMM (130-400); Red Blood Count 3.02 MC/CUMM (3.8-5.5); Red Cell Distribution Width 21.3 % (9.3-17.3); White Blood Count 5.4 T/CUMM (4-12)
[2022-03-22 05:07] LABS: Bilirubin,Total 4.6 MG/DL (0.20-1.00); Calcium 7.5 MG/DL (8.5-10.1); Osmolality,Calculated 266.2 MOS/KG (273-304); Potassium 3.6 MMOL/L (3.5-5.1); Total Protein 7.4 G/DL (6.4-8.2)
[2022-03-22 05:15] LABS: Platelet Estimate Decreased
[2022-03-22 08:32] VITALS: BP 115/53
== END 2022-03-22 10:49 | disposition home or self-care (01) | DRG 378 ==
LOC: N.EDINP 11:28 → N.ED 11:28 → SUATTDRO 20:06 → N.2W 21:07
PROVIDERS: ADMIT Family Medicine; ATTEND Internal Medicine

== ENCOUNTER 2022-03-23 12:15 | Inpatient (IN) ==
[2022-03-23] MEDS ORDERED: PANTOPRAZOLE 40 MG VIAL IV STA (13:17)
[2022-03-23] MEDS ORDERED: SODIUM CHLORIDE 0.9% 500 ML IV STA (13:17)
[2022-03-23] MEDS ORDERED: ONDANSETRON 4 MG/2 ML VIAL IV STA (13:17)
[2022-03-23 13:40] LABS: Basophils % 0.2 % (0.0-0.8); Hematocrit 29.8 VOL% (35.7-47.0); Hemoglobin 10.1 GM/DL (12.0-16.0); Immature Granulocytes % 0.9 %; Immature Granulocytes Absolute 0.08 #; Lymphocytes # 0.9 10*3/uL (1.4-4.0); Lymphocytes % 9.6 % (21.3-54.2); Mean Corpuscular HGB Conc 33.9 GM/DL (32-36); Mean Corpuscular Volume 92.3 FL (87-102); Monocytes # 0.5 10*3/uL (0.11-0.8); Monocytes % 4.9 % (1.7-12.7); NRBC # 0.03 10*3/uL; Neutrophils % 84.4 % (38.7-73.9); Platelet Count 107 T/CUMM (130-400); Red Blood Count 3.23 MC/CUMM (3.8-5.5); Red Cell Distribution Width 22.3 % (9.3-17.3); White Blood Count 9.4 T/CUMM (4-12)
[2022-03-23 13:53] LABS: INR 1.9; PT Patient Result 20.5 SECS (10.1-12.1)
[2022-03-23 14:45] LABS: Albumin 1.1 G/DL (3.4-5.0); Bilirubin,Total 5.3 MG/DL (0.20-1.00); Calcium 8.4 MG/DL (8.5-10.1); Osmolality,Calculated 264.5 MOS/KG (273-304); Potassium 4.1 MMOL/L (3.5-5.1); Total Protein 7.9 G/DL (6.4-8.2)
[2022-03-23] MEDS ORDERED: OCTREOTIDE 100 MCG/ML SYRINGE IV STA (15:10)
[2022-03-23] MEDS ORDERED: ONDANSETRON 4 MG/2 ML VIAL IV PRN (15:14)
[2022-03-23] MEDS ORDERED: DEXTROSE 5% NACL 0.9% 1,000 ML IV SCH (15:30)
[2022-03-23] MEDS ORDERED: SODIUM CHLORIDE 0.9% 1,000 ML IV PRN (16:12)
[2022-03-23 18:18] LABS: Hemoglobin 8.9 GM/DL (12.0-16.0)
[2022-03-23] MEDS: OCTREOTIDE 500 MCG in SODIUM CHLORIDE 0.9% 100 ML IV SCH (22:12)
[2022-03-23] MEDS: PANTOPRAZOLE 40 MG VIAL IV SCH (22:22)
[2022-03-24 05:47] LABS: Albumin 1.1 G/DL (3.4-5.0); Bilirubin,Total 5.6 MG/DL (0.20-1.00); Calcium 7.9 MG/DL (8.5-10.1); Potassium 3.9 MMOL/L (3.5-5.1); Total Protein 6.5 G/DL (6.4-8.2)
[2022-03-24 07:13] LABS: Basophils % 0.2 % (0.0-0.8); Eosinophils % 0.1 % (0.00-10.9); Hematocrit 22.2 VOL% (35.7-47.0); Hemoglobin 7.3 GM/DL (12.0-16.0); Immature Granulocytes % 0.6 %; Immature Granulocytes Absolute 0.08 #; Lymphocytes # 1.7 10*3/uL (1.4-4.0); Lymphocytes % 13.1 % (21.3-54.2); Mean Corpuscular HGB Conc 32.9 GM/DL (32-36); Mean Corpuscular Volume 96.9 FL (87-102); Mean Platelet Volume 11.1 FL (9.6-12.0); Monocytes # 1.1 10*3/uL (0.11-0.8); Monocytes % 8.4 % (1.7-12.7); NRBC # 0.05 10*3/uL; Neutrophils % 77.6 % (38.7-73.9); Red Cell Distribution Width 22.9 % (9.3-17.3)
[2022-03-24 07:26] LABS: Platelet Count 76 T/CUMM (130-400)
[2022-03-24 07:27] LABS: Red Blood Count 2.29 MC/CUMM (3.8-5.5); White Blood Count 12.8 T/CUMM (4-12)
[2022-03-24 07:54] LABS: Band Neutrophils 5 % (0-10); Hypochromia 1+; Lymphocytes 8 % (20-55); Microcytosis 1+; Target Cells Slight; Total Cells Counted 100
[2022-03-24 07:55] LABS: Acanthocytes Few; Polychromasia Slight
[2022-03-24] MEDS ORDERED: SODIUM CHLORIDE 0.9% 1,000 ML IV PRN (07:55)
[2022-03-24 07:56] LABS: Platelet Estimate Decreased
[2022-03-24] MEDS ORDERED: LORazepam 2 MG/1 ML VIAL IV PRN (07:59)
[2022-03-24] MEDS: OCTREOTIDE 500 MCG in SODIUM CHLORIDE 0.9% 100 ML IV SCH ×2 (08:13→18:45)
[2022-03-24] MEDS: PANTOPRAZOLE 40 MG VIAL IV SCH ×2 (08:17→21:04)
[2022-03-24 08:33] LABS: Folate 4.71 NG/ML (5.38-24.0)
[2022-03-24] MEDS: SODIUM BICARB INJ 50 MEQ in DEXTROSE 5% NACL 0.45% 1,000 ML IV SCH (10:39)
[2022-03-24] MEDS: THIAMINE 200 MG/2 ML VIAL IV SCH (10:40)
[2022-03-24 11:47] LABS: INR 1.9; PT Patient Result 20.5 SECS (10.1-12.1)
[2022-03-24] MEDS ORDERED: propofoL 200 MG/20 ML VIAL IV ONE (13:12)
[2022-03-24] MEDS ORDERED: ETOMIDATE 20 MG/10 ML VIAL IV ONE (13:12)
[2022-03-24] MEDS ORDERED: LIDOCAINE 2% 5 ML VIAL ONE (13:12)
[2022-03-24] MEDS ORDERED: PHENYLEPHRINE 1 MG/10 ML SYRINGE IV ONE (13:26)
[2022-03-24] MEDS ORDERED: MIDODRINE 5 MG TABLET PO SCH (15:00)
[2022-03-24] MEDS: SODIUM CHLORIDE 0.9% 1,000 ML IV SCH (18:33)
[2022-03-24 20:08] LABS: Hematocrit 26.8 VOL% (35.7-47.0); Hemoglobin 9.2 GM/DL (12.0-16.0)
[2022-03-24] MEDS: PROPRANOLOL 20 MG TABLET PO SCH (21:00)
[2022-03-25] MEDS: SODIUM BICARB INJ 50 MEQ in DEXTROSE 5% NACL 0.45% 1,000 ML IV SCH ×4 (01:05→19:15)
[2022-03-25] MEDS: OCTREOTIDE 500 MCG in SODIUM CHLORIDE 0.9% 100 ML IV SCH ×2 (04:51→21:36)
[2022-03-25 05:04] LABS: Basophils % 0.3 % (0.0-0.8); Eosinophils # 0.1 10*3/uL (0.0-0.87); Eosinophils % 0.5 % (0.00-10.9); Hematocrit 27.7 VOL% (35.7-47.0); Hemoglobin 9.5 GM/DL (12.0-16.0); Immature Granulocytes % 1.4 %; Immature Granulocytes Absolute 0.14 #; Lymphocytes # 1.5 10*3/uL (1.4-4.0); Lymphocytes % 15.1 % (21.3-54.2); Mean Corpuscular HGB Conc 34.3 GM/DL (32-36); Mean Corpuscular Volume 92.3 FL (87-102); Mean Platelet Volume 10.7 FL (9.6-12.0); Monocytes # 1.2 10*3/uL (0.11-0.8); Monocytes % 11.8 % (1.7-12.7); NRBC # 0.06 10*3/uL; Neutrophils % 70.9 % (38.7-73.9); Platelet Count 81 T/CUMM (130-400); Red Cell Distribution Width 20.3 % (9.3-17.3); White Blood Count 10.2 T/CUMM (4-12)
[2022-03-25 05:29] LABS: Bilirubin,Total 5.2 MG/DL (0.20-1.00); Calcium 7.4 MG/DL (8.5-10.1); Osmolality,Calculated 280.1 MOS/KG (273-304); Potassium 4.1 MMOL/L (3.5-5.1); Total Protein 6.3 G/DL (6.4-8.2)
[2022-03-25 05:35] LABS: Platelet Estimate Decreased
[2022-03-25] MEDS: THIAMINE 200 MG/2 ML VIAL IV SCH (09:10)
[2022-03-25] MEDS: PANTOPRAZOLE 40 MG VIAL IV SCH ×2 (09:11→21:15)
[2022-03-25] MEDS: LACTULOSE 20 GM/30 ML UDCUP PO SCH ×4 (10:35→21:14)
[2022-03-25] MEDS: RIFAXIMIN 550 MG TABLET PO SCH ×2 (12:21→21:14)
[2022-03-25] MEDS: PROPRANOLOL 20 MG TABLET PO SCH ×2 (16:20→21:14)
[2022-03-25] MEDS: SODIUM CHLORIDE 0.9% 1,000 ML IV SCH (16:21)
[2022-03-25] MEDS: ALBUMIN 5% 25 GM/500 ML VIAL IV SCH (19:15)
[2022-03-26] MEDS: ALBUMIN 5% 25 GM/500 ML VIAL IV SCH ×3 (01:47→17:35)
[2022-03-26] MEDS: SODIUM BICARB INJ 50 MEQ in DEXTROSE 5% NACL 0.45% 1,000 ML IV SCH ×2 (04:03→13:40)
[2022-03-26 05:39] LABS: Basophils % 0.4 % (0.0-0.8); Eosinophils % 0.4 % (0.00-10.9); Hematocrit 32.8 VOL% (35.7-47.0); Hemoglobin 10.6 GM/DL (12.0-16.0); Immature Granulocytes % 1.6 %; Immature Granulocytes Absolute 0.12 #; Lymphocytes # 1.3 10*3/uL (1.4-4.0); Mean Corpuscular HGB Conc 32.3 GM/DL (32-36); Mean Corpuscular Volume 95.9 FL (87-102); Mean Platelet Volume 11.6 FL (9.6-12.0); Monocytes # 1.1 10*3/uL (0.11-0.8); Monocytes % 15.1 % (1.7-12.7); NRBC # 0.07 10*3/uL; Neutrophils % 64.5 % (38.7-73.9); Platelet Count 70 T/CUMM (130-400); Red Blood Count 3.42 MC/CUMM (3.8-5.5); White Blood Count 7.4 T/CUMM (4-12)
[2022-03-26] MEDS: OCTREOTIDE 500 MCG in SODIUM CHLORIDE 0.9% 100 ML IV SCH (05:44)
[2022-03-26 06:00] LABS: Albumin 1.6 G/DL (3.4-5.0); Bilirubin,Total 6.4 MG/DL (0.20-1.00); Calcium 7.8 MG/DL (8.5-10.1); Osmolality,Calculated 278.4 MOS/KG (273-304); Total Protein 6.5 G/DL (6.4-8.2)
[2022-03-26] MEDS: LACTULOSE 20 GM/30 ML UDCUP PO SCH ×5 (09:35→22:08)
[2022-03-26] MEDS: RIFAXIMIN 550 MG TABLET PO SCH ×2 (09:37→21:54)
[2022-03-26] MEDS: PROPRANOLOL 20 MG TABLET PO SCH ×2 (09:37→21:54)
[2022-03-26] MEDS: PANTOPRAZOLE 40 MG VIAL IV SCH ×2 (09:43→21:56)
[2022-03-26] MEDS: THIAMINE 200 MG/2 ML VIAL IV SCH (09:43)
[2022-03-26] MEDS: MORPHINE 2 MG/1 ML SYRINGE IV PRN ×2 (10:07→18:11)
[2022-03-26] MEDS ORDERED: LACTULOSE 20 GM/30 ML UDCUP PO SCH (13:00)
[2022-03-26] MEDS ORDERED: SODIUM PHOSPHATE ENEMA 133 ML BOTTLE RECTAL ONE (15:28)
[2022-03-26] MEDS: SODIUM CHLORIDE 0.9% 1,000 ML IV SCH (17:22)
[2022-03-27] MEDS: SODIUM BICARB INJ 50 MEQ in DEXTROSE 5% NACL 0.45% 1,000 ML IV SCH ×2 (03:15→03:51)
[2022-03-27] MEDS: ALBUMIN 5% 25 GM/500 ML VIAL IV SCH ×3 (03:42→17:20)
[2022-03-27 06:04] LABS: Basophils % 0.3 % (0.0-0.8); Eosinophils % 0.1 % (0.00-10.9); Hematocrit 28.6 VOL% (35.7-47.0); Hemoglobin 9.7 GM/DL (12.0-16.0); Immature Granulocytes % 1.4 %; Immature Granulocytes Absolute 0.16 #; Lymphocytes # 1.1 10*3/uL (1.4-4.0); Lymphocytes % 9.3 % (21.3-54.2); Mean Corpuscular HGB Conc 33.9 GM/DL (32-36); Mean Corpuscular Volume 93.2 FL (87-102); Mean Platelet Volume 11.9 FL (9.6-12.0); Monocytes # 1.8 10*3/uL (0.11-0.8); Monocytes % 15.1 % (1.7-12.7); NRBC # 0.06 10*3/uL; Neutrophils % 73.8 % (38.7-73.9); Platelet Count 83 T/CUMM (130-400); Red Blood Count 3.07 MC/CUMM (3.8-5.5); Red Cell Distribution Width 20.7 % (9.3-17.3); White Blood Count 11.8 T/CUMM (4-12)
[2022-03-27 06:27] LABS: Hypochromia Slight; Platelet Estimate Decreased
[2022-03-27 06:33] LABS: Albumin 1.7 G/DL (3.4-5.0); Bilirubin,Total 7.1 MG/DL (0.20-1.00); Calcium 7.5 MG/DL (8.5-10.1); Osmolality,Calculated 289.3 MOS/KG (273-304); Potassium 4.7 MMOL/L (3.5-5.1); Total Protein 6.3 G/DL (6.4-8.2)
[2022-03-27] MEDS ORDERED: FUROSEMIDE 40 MG TABLET PO SCH (09:00)
[2022-03-27] MEDS: PROPRANOLOL 20 MG TABLET PO SCH (12:18)
[2022-03-27] MEDS: SPIRONOLACTONE 25 MG TABLET PO SCH (12:18)
[2022-03-27] MEDS: RIFAXIMIN 550 MG TABLET PO SCH (12:18)
[2022-03-27] MEDS: LACTULOSE 20 GM/30 ML UDCUP PO SCH ×2 (12:19→17:19)
[2022-03-27] MEDS: PANTOPRAZOLE 40 MG VIAL IV SCH (12:19)
[2022-03-27] MEDS: THIAMINE 200 MG/2 ML VIAL IV SCH (12:20)
[2022-03-27] MEDS: SODIUM BICARB INJ 100 MEQ in DEXTROSE 5% NACL 0.22% 1,000 ML IV SCH ×2 (12:48→23:52)
[2022-03-27] MEDS: HALOPERIDOL 5 MG/ML AMP IM PRN (18:55)
[2022-03-27 23:06] LABS: Amorphous Crystals,Urine Occasional /HPF (Few); Bilirubin,Urine Negative (Negative); Blood, Urine Large mg/dL (Negative); Glucose,Urine (UA) Negative (Negative); Hyaline Casts,Urine 67 /LPF (0-3); Ketones,Urine Negative (Negative); Mucus,Urine Occasional /LPF (Occasional); Nitrite,Urine Negative (Negative); Protein,Urine 100 mg/dL (Negative); RBC,Urine 511 /HPF (0-4); Red Blood Cell Casts,Urine 6 /LPF (<1); Squamous Epithelial Cell,Urine Occasional /HPF (0-10); Urine Appearance CLOUDY (Clear); Urine Color Amber (Yellow); Urine Specific Gravity 1.018 (1.001-1.035); Urine Urobilinogen < 2.0 eU/dL (<2.0)
[2022-03-28] MEDS: LACTULOSE 20 GM/30 ML UDCUP PO SCH ×4 (00:08→23:44)
[2022-03-28] MEDS: PANTOPRAZOLE 40 MG VIAL IV SCH (00:08)
[2022-03-28] MEDS: PROPRANOLOL 20 MG TABLET PO SCH ×3 (00:08→21:10)
[2022-03-28] MEDS: RIFAXIMIN 550 MG TABLET PO SCH ×3 (00:08→21:10)
[2022-03-28] MEDS: ALBUMIN 5% 25 GM/500 ML VIAL IV SCH ×2 (02:52→23:43)
[2022-03-28] MEDS: HALOPERIDOL 5 MG/ML AMP IM PRN (02:52)
[2022-03-28 06:17] LABS: Albumin 2.7 G/DL (3.4-5.0); Bilirubin,Total 7.6 MG/DL (0.20-1.00); Osmolality,Calculated 297.6 MOS/KG (273-304); Total Protein 6.9 G/DL (6.4-8.2)
[2022-03-28] MEDS: POTASSIUM CHLORIDE 20 MEQ TABLET PO PRN (06:50)
[2022-03-28 07:52] LABS: Basophils % 0.4 % (0.0-0.8); Eosinophils # 0.1 10*3/uL (0.0-0.87); Eosinophils % 0.9 % (0.00-10.9); Hematocrit 29.5 VOL% (35.7-47.0); Hemoglobin 10.1 GM/DL (12.0-16.0); Immature Granulocytes % 1.3 %; Immature Granulocytes Absolute 0.09 #; Lymphocytes # 1.3 10*3/uL (1.4-4.0); Lymphocytes % 18.8 % (21.3-54.2); Mean Corpuscular HGB Conc 34.2 GM/DL (32-36); Mean Corpuscular Volume 93.7 FL (87-102); Mean Platelet Volume 10.3 FL (9.6-12.0); Monocytes # 1.2 10*3/uL (0.11-0.8); Monocytes % 17.8 % (1.7-12.7); NRBC # 0.06 10*3/uL; Neutrophils % 60.8 % (38.7-73.9); Platelet Count 87 T/CUMM (130-400); Red Blood Count 3.15 MC/CUMM (3.8-5.5); White Blood Count 6.9 T/CUMM (4-12)
[2022-03-28] MEDS ORDERED: POTASSIUM CHLORIDE INJ 40 MEQ in DEXTROSE 5% NACL 0.22% 1,000 ML IV SCH (08:00)
[2022-03-28 08:26] LABS: Hypochromia Slight; Lymphocytes 17 % (20-55); Target Cells Few; Total Cells Counted 100
[2022-03-28 08:27] LABS: Acanthocytes Few; Anisocytosis 1+; Burr Cells Slight; Microcytosis 1+; Ovalocytes Slight
[2022-03-28 08:28] LABS: Platelet Estimate Decreased
[2022-03-28] MEDS ORDERED: POTASSIUM CHLORIDE INJ 30 MEQ in LACTATED RINGERS 1,000 ML IV SCH (09:30)
[2022-03-28 09:44] LABS: Free T4 (Free Thyroxine) 0.64 NG/DL (0.76-1.46)
[2022-03-28] MEDS ORDERED: OLANZapine 10 MG VIAL IM ONE (11:30)
[2022-03-28] MEDS: SPIRONOLACTONE 25 MG TABLET PO SCH (11:48)
[2022-03-28] MEDS: OMEPRAZOLE ODT 20 MG TABLET PO SCH ×2 (11:49→21:10)
[2022-03-28] MEDS: FOLIC ACID 1 MG TABLET PO SCH (11:49)
[2022-03-28] MEDS: THIAMINE 100 MG TABLET PO SCH (11:50)
[2022-03-28] MEDS ORDERED: HALOPERIDOL 5 MG/ML AMP IM PRN (12:07)
[2022-03-28] MEDS: OLANZapine 2.5 MG TABLET NG SCH (16:46)
[2022-03-28] MEDS: CHOLECALCIFEROL 5,000 UNIT TABLET PO SCH ×2 (22:00→23:45)
[2022-03-29 05:49] LABS: Basophils % 0.5 % (0.0-0.8); Eosinophils # 0.1 10*3/uL (0.0-0.87); Eosinophils % 1.4 % (0.00-10.9); Hematocrit 30.3 VOL% (35.7-47.0); Hemoglobin 10.4 GM/DL (12.0-16.0); Immature Granulocytes % 1.2 %; Immature Granulocytes Absolute 0.07 #; Lymphocytes # 1.7 10*3/uL (1.4-4.0); Lymphocytes % 28.8 % (21.3-54.2); Mean Corpuscular HGB Conc 34.3 GM/DL (32-36); Mean Corpuscular Volume 92.7 FL (87-102); Mean Platelet Volume 11.9 FL (9.6-12.0); Monocytes # 0.9 10*3/uL (0.11-0.8); Monocytes % 15.9 % (1.7-12.7); NRBC # 0.07 10*3/uL; Neutrophils % 52.2 % (38.7-73.9); Platelet Count 92 T/CUMM (130-400); Red Blood Count 3.27 MC/CUMM (3.8-5.5); Red Cell Distribution Width 21.5 % (9.3-17.3); White Blood Count 5.9 T/CUMM (4-12)
[2022-03-29 05:53] LABS: Calcium 8.1 MG/DL (8.5-10.1); Osmolality,Calculated 296.6 MOS/KG (273-304)
[2022-03-29 06:35] LABS: Band Neutrophils 6 % (0-10); Eosinophils 1 % (0-10); Lymphocytes 22 % (20-55); Nucleated Red Blood Cells 6 /100 WBC (0-5); Platelet Estimate Decreased; Total Cells Counted 100
[2022-03-29 06:36] LABS: Anisocytosis 1+; Burr Cells 2+; Macrocytosis 1+; Target Cells Few
[2022-03-29] MEDS ORDERED: LEVOTHYROXINE 100 MCG VIAL IV SCH (07:00)
[2022-03-29] MEDS: ALBUMIN 5% 25 GM/500 ML VIAL IV SCH ×3 (07:04→16:13)
[2022-03-29] MEDS: DEXT 5% NACL 0.45% KCL 20 MEQ 20 MEQ/1,000 ML BAG IV SCH (08:04)
[2022-03-29] MEDS ORDERED: POTASSIUM BICARB EFFERVESCENT 20 MEQ TAB.EFF PO SCH (09:00)
[2022-03-29] MEDS: OLANZapine 2.5 MG TABLET NG SCH (09:51)
[2022-03-29] MEDS: THIAMINE 100 MG TABLET PO SCH (09:51)
[2022-03-29] MEDS: RIFAXIMIN 550 MG TABLET PO SCH ×2 (09:51→21:34)
[2022-03-29] MEDS: CHOLECALCIFEROL 5,000 UNIT TABLET PO SCH ×2 (09:51→21:33)
[2022-03-29] MEDS: OMEPRAZOLE ODT 20 MG TABLET PO SCH ×2 (09:52→21:33)
[2022-03-29] MEDS: LACTULOSE 20 GM/30 ML UDCUP PO SCH ×4 (09:52→21:31)
[2022-03-29] MEDS: SPIRONOLACTONE 25 MG TABLET PO SCH (09:52)
[2022-03-29] MEDS: FOLIC ACID 1 MG TABLET PO SCH (09:52)
[2022-03-29] MEDS: PROPRANOLOL 20 MG TABLET PO SCH ×2 (09:53→21:33)
[2022-03-29] MEDS: POTASSIUM CHLORIDE 20 MEQ TABLET PO PRN ×4 (09:55→18:23)
[2022-03-29] MEDS: POTASSIUM BICARB EFFERVESCENT 20 MEQ TAB.EFF PO SCH (21:33)
[2022-03-30] MEDS: ALBUMIN 5% 25 GM/500 ML VIAL IV SCH ×3 (06:06→16:00)
[2022-03-30] MEDS: DEXT 5% NACL 0.45% KCL 20 MEQ 20 MEQ/1,000 ML BAG IV SCH (06:06)
[2022-03-30] MEDS: LEVOTHYROXINE 88 MCG TABLET PO SCH (06:09)
[2022-03-30 06:16] LABS: Basophils % 0.4 % (0.0-0.8); Eosinophils # 0.1 10*3/uL (0.0-0.87); Eosinophils % 2.2 % (0.00-10.9); Hematocrit 28.1 VOL% (35.7-47.0); Hemoglobin 9.4 GM/DL (12.0-16.0); Immature Granulocytes % 0.6 %; Immature Granulocytes Absolute 0.03 #; Lymphocytes % 36.7 % (21.3-54.2); Mean Corpuscular HGB Conc 33.5 GM/DL (32-36); Mean Corpuscular Volume 93.7 FL (87-102); Mean Platelet Volume 11.4 FL (9.6-12.0); Monocytes # 0.8 10*3/uL (0.11-0.8); Monocytes % 15.3 % (1.7-12.7); NRBC # 0.09 10*3/uL; Neutrophils % 44.8 % (38.7-73.9); Platelet Count 90 T/CUMM (130-400); Red Cell Distribution Width 21.6 % (9.3-17.3); White Blood Count 5.4 T/CUMM (4-12)
[2022-03-30 06:27] LABS: Calcium 8.1 MG/DL (8.5-10.1); Osmolality,Calculated 289.1 MOS/KG (273-304); Potassium 3.5 MMOL/L (3.5-5.1)
[2022-03-30 06:33] LABS: Albumin 2.1 G/DL (3.4-5.0); Bilirubin,Direct 3.35 MG/DL (0.0-0.20); Bilirubin,Indirect 4.9 MG/DL (0.0-1.0); Bilirubin,Total 8.2 MG/DL (0.20-1.00); Total Protein 6.3 G/DL (6.4-8.2)
[2022-03-30 07:15] LABS: Platelet Estimate Decreased
[2022-03-30 07:16] LABS: Acanthocytes Few; Anisocytosis 2+; Burr Cells 1+; Macrocytosis Slight; Poikilocytosis 1+; Target Cells Few; Tear Drop Cells Few
[2022-03-30] MEDS: FOLIC ACID 1 MG TABLET PO SCH (08:54)
[2022-03-30] MEDS: PROPRANOLOL 20 MG TABLET PO SCH ×2 (08:54→21:36)
[2022-03-30] MEDS: OLANZapine 2.5 MG TABLET NG SCH (08:54)
[2022-03-30] MEDS: SPIRONOLACTONE 25 MG TABLET PO SCH (08:54)
[2022-03-30] MEDS: RIFAXIMIN 550 MG TABLET PO SCH ×2 (08:54→21:38)
[2022-03-30] MEDS: OMEPRAZOLE ODT 20 MG TABLET PO SCH ×2 (08:55→21:37)
[2022-03-30] MEDS: LACTULOSE 20 GM/30 ML UDCUP PO SCH ×4 (08:55→21:36)
[2022-03-30] MEDS: POTASSIUM BICARB EFFERVESCENT 20 MEQ TAB.EFF PO SCH ×2 (08:55→21:37)
[2022-03-30] MEDS: CHOLECALCIFEROL 5,000 UNIT TABLET PO SCH ×2 (08:55→21:38)
[2022-03-30] MEDS: THIAMINE 100 MG TABLET PO SCH (10:23)
[2022-03-31] MEDS: ALBUMIN 5% 25 GM/500 ML VIAL IV SCH ×4 (01:52→17:15)
[2022-03-31] MEDS: LEVOTHYROXINE 88 MCG TABLET PO SCH (06:02)
[2022-03-31] MEDS: DEXT 5% NACL 0.45% KCL 20 MEQ 20 MEQ/1,000 ML BAG IV SCH ×3 (06:14→14:29)
[2022-03-31] MEDS: POTASSIUM BICARB EFFERVESCENT 20 MEQ TAB.EFF PO SCH ×2 (09:15→21:16)
[2022-03-31] MEDS: LACTULOSE 20 GM/30 ML UDCUP PO SCH ×4 (09:15→21:15)
[2022-03-31] MEDS: FOLIC ACID 1 MG TABLET PO SCH (09:16)
[2022-03-31] MEDS: PROPRANOLOL 20 MG TABLET PO SCH ×2 (09:16→21:44)
[2022-03-31] MEDS: THIAMINE 100 MG TABLET PO SCH (09:16)
[2022-03-31] MEDS: OMEPRAZOLE ODT 20 MG TABLET PO SCH ×2 (09:16→21:17)
[2022-03-31] MEDS: SPIRONOLACTONE 25 MG TABLET PO SCH (09:16)
[2022-03-31] MEDS: RIFAXIMIN 550 MG TABLET PO SCH ×2 (09:16→21:16)
[2022-03-31] MEDS: OLANZapine 2.5 MG TABLET NG SCH (09:16)
[2022-03-31] MEDS: CHOLECALCIFEROL 5,000 UNIT TABLET PO SCH ×2 (09:17→21:17)
[2022-03-31] MEDS: ACETAMINOPHEN 325 MG TABLET PO PRN (21:17)
[2022-04-01] MEDS: ALBUMIN 5% 25 GM/500 ML VIAL IV SCH ×2 (02:09→09:30)
[2022-04-01] MEDS: LEVOTHYROXINE 88 MCG TABLET PO SCH (05:57)
[2022-04-01] MEDS: DEXT 5% NACL 0.45% KCL 20 MEQ 20 MEQ/1,000 ML BAG IV SCH ×2 (05:58→17:06)
[2022-04-01] MEDS: THIAMINE 100 MG TABLET PO SCH (08:40)
[2022-04-01] MEDS: CHOLECALCIFEROL 5,000 UNIT TABLET PO SCH ×2 (08:40→20:34)
[2022-04-01] MEDS: LACTULOSE 20 GM/30 ML UDCUP PO SCH ×4 (08:40→20:34)
[2022-04-01] MEDS: RIFAXIMIN 550 MG TABLET PO SCH ×2 (08:40→20:35)
[2022-04-01] MEDS: OMEPRAZOLE ODT 20 MG TABLET PO SCH ×2 (08:40→20:34)
[2022-04-01] MEDS: OLANZapine 2.5 MG TABLET NG SCH (08:40)
[2022-04-01] MEDS: POTASSIUM BICARB EFFERVESCENT 20 MEQ TAB.EFF PO SCH (08:40)
[2022-04-01] MEDS: PROPRANOLOL 20 MG TABLET PO SCH ×2 (08:40→20:34)
[2022-04-01] MEDS: FOLIC ACID 1 MG TABLET PO SCH (08:40)
[2022-04-01] MEDS: SPIRONOLACTONE 25 MG TABLET PO SCH (08:40)
[2022-04-01] MEDS: POTASSIUM CHLORIDE 20 MEQ TABLET PO SCH (20:34)
[2022-04-01] MEDS ORDERED: BENZOCAINE/MENTHOL LOZENGE 18/BOX PO PRN (22:46)
[2022-04-02] MEDS: DEXT 5% NACL 0.45% KCL 20 MEQ 20 MEQ/1,000 ML BAG IV SCH (06:24)
[2022-04-02] MEDS: LEVOTHYROXINE 88 MCG TABLET PO SCH (06:24)
[2022-04-02 07:17] LABS: Calcium 7.6 MG/DL (8.5-10.1); Osmolality,Calculated 282.1 MOS/KG (273-304); Potassium 4.9 MMOL/L (3.5-5.1)
[2022-04-02 07:26] LABS: Basophils % 0.5 % (0.0-0.8); Eosinophils # 0.1 10*3/uL (0.0-0.87); Eosinophils % 1.8 % (0.00-10.9); Hematocrit 22.6 VOL% (35.7-47.0); Hemoglobin 7.5 GM/DL (12.0-16.0); Immature Granulocytes % 0.5 %; Immature Granulocytes Absolute 0.03 #; Lymphocytes # 1.9 10*3/uL (1.4-4.0); Lymphocytes % 28.9 % (21.3-54.2); Mean Corpuscular HGB Conc 33.2 GM/DL (32-36); Mean Corpuscular Volume 93.4 FL (87-102); Mean Platelet Volume 11.9 FL (9.6-12.0); Monocytes % 14.7 % (1.7-12.7); NRBC # 0.03 10*3/uL; Neutrophils % 53.6 % (38.7-73.9); Platelet Count 59 T/CUMM (130-400); Red Blood Count 2.42 MC/CUMM (3.8-5.5); Red Cell Distribution Width 21.2 % (9.3-17.3); White Blood Count 6.7 T/CUMM (4-12)
[2022-04-02 08:02] LABS: Burr Cells Few; Macrocytosis 1+; Target Cells Few
[2022-04-02 08:03] LABS: Anisocytosis Slight
[2022-04-02] MEDS: FOLIC ACID 1 MG TABLET PO SCH (08:37)
[2022-04-02] MEDS: POTASSIUM CHLORIDE 20 MEQ TABLET PO SCH ×2 (08:37→08:42)
[2022-04-02] MEDS: OLANZapine 2.5 MG TABLET NG SCH (08:38)
[2022-04-02] MEDS: LACTULOSE 20 GM/30 ML UDCUP PO SCH ×3 (08:38→16:17)
[2022-04-02] MEDS: PROPRANOLOL 20 MG TABLET PO SCH ×2 (08:38→20:53)
[2022-04-02] MEDS: OMEPRAZOLE ODT 20 MG TABLET PO SCH ×2 (08:39→20:53)
[2022-04-02] MEDS: RIFAXIMIN 550 MG TABLET PO SCH ×2 (08:39→20:53)
[2022-04-02] MEDS: THIAMINE 100 MG TABLET PO SCH (08:39)
[2022-04-02] MEDS: CHOLECALCIFEROL 5,000 UNIT TABLET PO SCH ×2 (08:39→20:53)
[2022-04-02] MEDS: SPIRONOLACTONE 25 MG TABLET PO SCH (08:39)
[2022-04-02] MEDS: ACETAMINOPHEN 325 MG TABLET PO PRN (18:28)
[2022-04-02] MEDS: ALBUTEROL/IPRATROPIUM 3 ML NEB RESP TX PRN (23:28)
[2022-04-03 05:42] LABS: Basophils % 0.3 % (0.0-0.8); Eosinophils # 0.1 10*3/uL (0.0-0.87); Eosinophils % 1.7 % (0.00-10.9); Hematocrit 18.1 VOL% (35.7-47.0); Immature Granulocytes % 0.5 %; Immature Granulocytes Absolute 0.03 #; Lymphocytes # 1.7 10*3/uL (1.4-4.0); Mean Corpuscular HGB Conc 33.1 GM/DL (32-36); Mean Corpuscular Volume 94.8 FL (87-102); Mean Platelet Volume 12.7 FL (9.6-12.0); Monocytes # 0.9 10*3/uL (0.11-0.8); Monocytes % 13.7 % (1.7-12.7); NRBC # 0.02 10*3/uL; Neutrophils % 57.8 % (38.7-73.9); Platelet Count 53 T/CUMM (130-400); Red Blood Count 1.91 MC/CUMM (3.8-5.5); Red Cell Distribution Width 21.2 % (9.3-17.3); White Blood Count 6.3 T/CUMM (4-12)
[2022-04-03] MEDS ORDERED: SODIUM CHLORIDE 0.9% 1,000 ML IV PRN ×2 (05:54→09:20)
[2022-04-03] MEDS: LEVOTHYROXINE 88 MCG TABLET PO SCH (05:56)
[2022-04-03 06:09] LABS: Platelet Estimate Decreased
[2022-04-03] MEDS: PROPRANOLOL 20 MG TABLET PO SCH ×2 (09:03→21:02)
[2022-04-03] MEDS: SPIRONOLACTONE 25 MG TABLET PO SCH (09:03)
[2022-04-03] MEDS: FOLIC ACID 1 MG TABLET PO SCH (09:03)
[2022-04-03] MEDS: OMEPRAZOLE ODT 20 MG TABLET PO SCH ×2 (09:03→21:02)
[2022-04-03] MEDS: OLANZapine 2.5 MG TABLET NG SCH (09:04)
[2022-04-03] MEDS: LACTULOSE 20 GM/30 ML UDCUP PO SCH ×3 (09:04→21:01)
[2022-04-03] MEDS: THIAMINE 100 MG TABLET PO SCH (09:04)
[2022-04-03] MEDS: CHOLECALCIFEROL 5,000 UNIT TABLET PO SCH ×2 (09:04→21:02)
[2022-04-03] MEDS: RIFAXIMIN 550 MG TABLET PO SCH ×2 (09:04→21:02)
[2022-04-03] MEDS ORDERED: TROLAMINE SALICYLATE 10% CREAM 85 GM TUBE TOP PRN (14:27)
[2022-04-03] MEDS: ALBUTEROL/IPRATROPIUM 3 ML NEB RESP TX PRN (15:30)
[2022-04-03 17:16] LABS: Hematocrit 26.4 VOL% (35.7-47.0); Hemoglobin 8.8 GM/DL (12.0-16.0)
[2022-04-04] MEDS: LEVOTHYROXINE 88 MCG TABLET PO SCH (05:32)
[2022-04-04 05:48] LABS: Basophils % 0.3 % (0.0-0.8); Eosinophils # 0.1 10*3/uL (0.0-0.87); Eosinophils % 1.5 % (0.00-10.9); Immature Granulocytes % 0.4 %; Immature Granulocytes Absolute 0.03 #; Lymphocytes % 27.6 % (21.3-54.2); Mean Corpuscular HGB Conc 33.3 GM/DL (32-36); Mean Corpuscular Volume 91.3 FL (87-102); Monocytes # 1.3 10*3/uL (0.11-0.8); Monocytes % 17.7 % (1.7-12.7); Neutrophils % 52.5 % (38.7-73.9); Platelet Count 48 T/CUMM (130-400); Red Cell Distribution Width 20.6 % (9.3-17.3); White Blood Count 7.1 T/CUMM (4-12)
[2022-04-04 06:17] LABS: Band Neutrophils 6 % (0-10); Eosinophils 3 % (0-10); Lymphocytes 24 % (20-55); Nucleated Red Blood Cells 2 /100 WBC (0-5); Platelet Estimate Decreased; Total Cells Counted 100
[2022-04-04 06:20] LABS: Anisocytosis 2+; Burr Cells 2+
[2022-04-04 06:21] LABS: Acanthocytes Few; Macrocytosis Slight; Target Cells Few
[2022-04-04] MEDS ORDERED: SODIUM CHLORIDE 0.9% 1,000 ML IV PRN (06:22)
[2022-04-04] MEDS: RIFAXIMIN 550 MG TABLET PO SCH ×2 (09:04→20:55)
[2022-04-04] MEDS: SPIRONOLACTONE 25 MG TABLET PO SCH (09:04)
[2022-04-04] MEDS: OLANZapine 2.5 MG TABLET NG SCH (09:05)
[2022-04-04] MEDS: FOLIC ACID 1 MG TABLET PO SCH (09:05)
[2022-04-04] MEDS: OMEPRAZOLE ODT 20 MG TABLET PO SCH ×2 (09:05→20:55)
[2022-04-04] MEDS: CHOLECALCIFEROL 5,000 UNIT TABLET PO SCH ×2 (09:06→20:55)
[2022-04-04] MEDS: LACTULOSE 20 GM/30 ML UDCUP PO SCH ×3 (09:06→20:55)
[2022-04-04] MEDS: PROPRANOLOL 20 MG TABLET PO SCH ×2 (09:06→20:55)
[2022-04-04] MEDS: THIAMINE 100 MG TABLET PO SCH (09:06)
[2022-04-05] MEDS ORDERED: BISACODYL 10 MG SUPP RECTAL ONE (04:31)
[2022-04-05] MEDS: LEVOTHYROXINE 88 MCG TABLET PO SCH (05:47)
[2022-04-05 07:52] LABS: Hematocrit 19.4 VOL% (35.7-47.0); Hemoglobin 6.8 GM/DL (12.0-16.0)
[2022-04-05] MEDS ORDERED: SODIUM CHLORIDE 0.9% 1,000 ML IV PRN (08:18)
[2022-04-05] MEDS ORDERED: SODIUM CHLORIDE 0.9% 250 ML IV ONE (10:38)
[2022-04-05] MEDS: LACTULOSE 20 GM/30 ML UDCUP PO SCH ×3 (11:30→20:14)
[2022-04-05] MEDS: POTASSIUM CHLORIDE 20 MEQ TABLET PO PRN (11:30)
[2022-04-05] MEDS: THIAMINE 100 MG TABLET PO SCH (11:32)
[2022-04-05] MEDS: RIFAXIMIN 550 MG TABLET PO SCH ×2 (11:32→20:14)
[2022-04-05] MEDS: OMEPRAZOLE ODT 20 MG TABLET PO SCH ×2 (11:32→20:14)
[2022-04-05] MEDS: OLANZapine 2.5 MG TABLET NG SCH (11:32)
[2022-04-05] MEDS: PROPRANOLOL 20 MG TABLET PO SCH ×2 (11:34→20:14)
[2022-04-05] MEDS: FOLIC ACID 1 MG TABLET PO SCH (11:35)
[2022-04-05] MEDS: CHOLECALCIFEROL 5,000 UNIT TABLET PO SCH ×2 (11:35→20:14)
[2022-04-05] MEDS: SPIRONOLACTONE 25 MG TABLET PO SCH (11:38)
[2022-04-05 15:56] LABS: Hemoglobin 9.1 GM/DL (12.0-16.0)
[2022-04-05] MEDS: ACETAMINOPHEN 325 MG TABLET PO PRN (20:15)
[2022-04-06] MEDS: LEVOTHYROXINE 88 MCG TABLET PO SCH (06:25)
[2022-04-06 07:10] LABS: Basophils % 0.4 % (0.0-0.8); Eosinophils # 0.1 10*3/uL (0.0-0.87); Hematocrit 19.8 VOL% (35.7-47.0); Immature Granulocytes % 0.4 %; Immature Granulocytes Absolute 0.03 #; Lymphocytes % 29.4 % (21.3-54.2); Mean Corpuscular HGB Conc 34.8 GM/DL (32-36); Mean Corpuscular Volume 86.8 FL (87-102); Mean Platelet Volume 12.4 FL (9.6-12.0); Monocytes # 1.2 10*3/uL (0.11-0.8); Monocytes % 17.1 % (1.7-12.7); Neutrophils % 51.7 % (38.7-73.9); Platelet Count 40 T/CUMM (130-400); Red Blood Count 2.28 MC/CUMM (3.8-5.5); Red Cell Distribution Width 18.8 % (9.3-17.3); White Blood Count 6.9 T/CUMM (4-12)
[2022-04-06 07:11] LABS: Hemoglobin 6.9 GM/DL (12.0-16.0)
[2022-04-06 08:02] LABS: Band Neutrophils 1 % (0-10); Eosinophils 1 % (0-10); Hypochromia Slight; Lymphocytes 32 % (20-55); Total Cells Counted 100
[2022-04-06 08:03] LABS: Anisocytosis 1+; Burr Cells Slight; Microcytosis 1+
[2022-04-06 08:04] LABS: Platelet Estimate Decreased; Target Cells Slight
[2022-04-06] MEDS: LACTULOSE 20 GM/30 ML UDCUP PO SCH ×3 (09:34→21:41)
[2022-04-06] MEDS: SPIRONOLACTONE 25 MG TABLET PO SCH (09:35)
[2022-04-06] MEDS: CHOLECALCIFEROL 5,000 UNIT TABLET PO SCH ×2 (09:35→21:43)
[2022-04-06] MEDS: RIFAXIMIN 550 MG TABLET PO SCH ×2 (09:35→21:44)
[2022-04-06] MEDS: OLANZapine 2.5 MG TABLET NG SCH (09:35)
[2022-04-06] MEDS: PROPRANOLOL 20 MG TABLET PO SCH ×2 (09:36→21:44)
[2022-04-06] MEDS: OMEPRAZOLE ODT 20 MG TABLET PO SCH ×2 (09:36→21:47)
[2022-04-06] MEDS: FOLIC ACID 1 MG TABLET PO SCH (09:36)
[2022-04-06] MEDS: THIAMINE 100 MG TABLET PO SCH (09:36)
[2022-04-06] MEDS ORDERED: SODIUM CHLORIDE 0.9% 250 ML IV ONE (14:38)
[2022-04-07] MEDS: traMADol 50 MG TABLET PO PRN ×2 (04:33→14:45)
[2022-04-07 05:30] LABS: Basophils % 0.4 % (0.0-0.8); Eosinophils # 0.1 10*3/uL (0.0-0.87); Eosinophils % 0.8 % (0.00-10.9); Hematocrit 22.1 VOL% (35.7-47.0); Hemoglobin 7.7 GM/DL (12.0-16.0); Immature Granulocytes % 0.5 %; Immature Granulocytes Absolute 0.04 #; Lymphocytes # 2.2 10*3/uL (1.4-4.0); Lymphocytes % 27.9 % (21.3-54.2); Mean Corpuscular HGB Conc 34.8 GM/DL (32-36); Mean Corpuscular Volume 84.7 FL (87-102); Mean Platelet Volume 12.9 FL (9.6-12.0); Monocytes # 1.3 10*3/uL (0.11-0.8); Monocytes % 17.2 % (1.7-12.7); Neutrophils % 53.2 % (38.7-73.9); Platelet Count 44 T/CUMM (130-400); Red Blood Count 2.61 MC/CUMM (3.8-5.5); Red Cell Distribution Width 17.2 % (9.3-17.3); White Blood Count 7.8 T/CUMM (4-12)
[2022-04-07 05:46] LABS: Osmolality,Calculated 287.1 MOS/KG (273-304); Potassium 5.1 MMOL/L (3.5-5.1)
[2022-04-07] MEDS: LEVOTHYROXINE 88 MCG TABLET PO SCH (05:50)
[2022-04-07 05:52] LABS: Eosinophils 1 % (0-10); Lymphocytes 31 % (20-55); Platelet Estimate Decreased; Total Cells Counted 100
[2022-04-07 05:53] LABS: Hypochromia Slight; Microcytosis Slight
[2022-04-07] MEDS: FOLIC ACID 1 MG TABLET PO SCH (09:25)
[2022-04-07] MEDS: SPIRONOLACTONE 25 MG TABLET PO SCH (09:25)
[2022-04-07] MEDS: RIFAXIMIN 550 MG TABLET PO SCH ×2 (09:25→20:27)
[2022-04-07] MEDS: PROPRANOLOL 20 MG TABLET PO SCH ×2 (09:25→20:27)
[2022-04-07] MEDS: THIAMINE 100 MG TABLET PO SCH (09:25)
[2022-04-07] MEDS: OLANZapine 2.5 MG TABLET NG SCH (09:26)
[2022-04-07] MEDS: CHOLECALCIFEROL 5,000 UNIT TABLET PO SCH ×2 (09:26→20:27)
[2022-04-07] MEDS: OMEPRAZOLE ODT 20 MG TABLET PO SCH ×2 (09:28→20:27)
[2022-04-07] MEDS: LACTULOSE 20 GM/30 ML UDCUP PO SCH ×3 (09:30→20:35)
[2022-04-07 10:17] LABS: PT Patient Result 28.3 SECS (10.1-12.1)
[2022-04-07 10:18] LABS: INR 2.7
[2022-04-07] MEDS: ACETAMINOPHEN 325 MG TABLET PO PRN (20:25)
[2022-04-08] MEDS: ACETAMINOPHEN 325 MG TABLET PO PRN ×2 (00:35→16:36)
[2022-04-08] MEDS: LEVOTHYROXINE 88 MCG TABLET PO SCH (05:38)
[2022-04-08 06:35] LABS: Basophils % 0.4 % (0.0-0.8); Eosinophils # 0.1 10*3/uL (0.0-0.87); Eosinophils % 1.1 % (0.00-10.9); Immature Granulocytes % 0.5 %; Immature Granulocytes Absolute 0.04 #; Lymphocytes # 2.6 10*3/uL (1.4-4.0); Lymphocytes % 34.3 % (21.3-54.2); Mean Corpuscular HGB Conc 34.3 GM/DL (32-36); Mean Corpuscular Volume 87.2 FL (87-102); Mean Platelet Volume 11.9 FL (9.6-12.0); Monocytes # 1.2 10*3/uL (0.11-0.8); Monocytes % 16.4 % (1.7-12.7); Neutrophils % 47.3 % (38.7-73.9); Platelet Count 41 T/CUMM (130-400); Red Blood Count 1.64 MC/CUMM (3.8-5.5); Red Cell Distribution Width 17.7 % (9.3-17.3); White Blood Count 7.5 T/CUMM (4-12)
[2022-04-08 06:41] LABS: Hematocrit 14.3 VOL% (35.7-47.0); Hemoglobin 4.9 GM/DL (12.0-16.0)
[2022-04-08] MEDS ORDERED: SODIUM CHLORIDE 0.9% 1,000 ML IV PRN ×3 (06:45→08:52)
[2022-04-08 06:51] LABS: Albumin 1.7 G/DL (3.4-5.0); Calcium 7.5 MG/DL (8.5-10.1); Osmolality,Calculated 286.3 MOS/KG (273-304); PT Patient Result 31.5 SECS (10.1-12.1)
[2022-04-08 06:52] LABS: Bilirubin,Total 14.3 MG/DL (0.20-1.00)
[2022-04-08 06:54] LABS: Burr Cells Slight; Lymphocytes 22 % (20-55); Platelet Estimate Decreased; Total Cells Counted 100
[2022-04-08 06:55] LABS: Hypochromia Slight; Microcytosis Slight
[2022-04-08] MEDS ORDERED: FUROSEMIDE 40 MG/4 ML VIAL IV ONE (08:03)
[2022-04-08] MEDS ORDERED: FUROSEMIDE 40 MG/4 ML VIAL IV PRN (08:22)
[2022-04-08] MEDS: traMADol 50 MG TABLET PO PRN ×2 (08:35→20:55)
[2022-04-08] MEDS: LACTULOSE 20 GM/30 ML UDCUP PO SCH ×3 (10:35→20:55)
[2022-04-08] MEDS: OMEPRAZOLE ODT 20 MG TABLET PO SCH ×2 (10:37→20:55)
[2022-04-08] MEDS: FOLIC ACID 1 MG TABLET PO SCH (10:37)
[2022-04-08] MEDS: SPIRONOLACTONE 25 MG TABLET PO SCH (10:37)
[2022-04-08] MEDS: OLANZapine 2.5 MG TABLET NG SCH (10:38)
[2022-04-08] MEDS: CHOLECALCIFEROL 5,000 UNIT TABLET PO SCH ×2 (10:38→20:55)
[2022-04-08] MEDS: PROPRANOLOL 20 MG TABLET PO SCH ×2 (10:38→20:55)
[2022-04-08] MEDS: THIAMINE 100 MG TABLET PO SCH (10:38)
[2022-04-08] MEDS: RIFAXIMIN 550 MG TABLET PO SCH ×2 (10:39→20:55)
[2022-04-08 20:54] LABS: Hematocrit 20.6 VOL% (35.7-47.0); Hemoglobin 6.9 GM/DL (12.0-16.0)
[2022-04-09] MEDS ORDERED: traMADol 50 MG TABLET PO ONE (02:02)
[2022-04-09] MEDS: LEVOTHYROXINE 88 MCG TABLET PO SCH (05:47)
[2022-04-09 05:52] LABS: Basophils % 0.4 % (0.0-0.8); Eosinophils # 0.1 10*3/uL (0.0-0.87); Eosinophils % 1.3 % (0.00-10.9); Hemoglobin 8.8 GM/DL (12.0-16.0); Immature Granulocytes % 0.6 %; Immature Granulocytes Absolute 0.05 #; Lymphocytes # 1.8 10*3/uL (1.4-4.0); Lymphocytes % 23.5 % (21.3-54.2); Mean Corpuscular HGB Conc 32.6 GM/DL (32-36); Mean Corpuscular Volume 90.6 FL (87-102); Mean Platelet Volume 12.9 FL (9.6-12.0); Monocytes % 12.5 % (1.7-12.7); NRBC # 0.03 10*3/uL; Neutrophils % 61.7 % (38.7-73.9); Platelet Count 54 T/CUMM (130-400); Red Blood Count 2.98 MC/CUMM (3.8-5.5); Red Cell Distribution Width 15.9 % (9.3-17.3); White Blood Count 7.8 T/CUMM (4-12)
[2022-04-09 06:09] LABS: Albumin 1.9 G/DL (3.4-5.0); Osmolality,Calculated 285.5 MOS/KG (273-304); Potassium 4.9 MMOL/L (3.5-5.1); Total Protein 5.9 G/DL (6.4-8.2)
[2022-04-09 06:11] LABS: Bilirubin,Total 18.5 MG/DL (0.20-1.00); INR 2.5; PT Patient Result 25.7 SECS (10.1-12.1)
[2022-04-09 06:12] LABS: Hypochromia Slight; Microcytosis Slight; Platelet Estimate Decreased
[2022-04-09 06:13] LABS: Acanthocytes Few
[2022-04-09] MEDS: OMEPRAZOLE ODT 20 MG TABLET PO SCH (09:20)
[2022-04-09] MEDS: SPIRONOLACTONE 25 MG TABLET PO SCH (09:20)
[2022-04-09] MEDS: PROPRANOLOL 20 MG TABLET PO SCH (09:20)
[2022-04-09] MEDS: LACTULOSE 20 GM/30 ML UDCUP PO SCH ×2 (09:20→14:16)
[2022-04-09] MEDS: RIFAXIMIN 550 MG TABLET PO SCH (09:21)
[2022-04-09] MEDS: THIAMINE 100 MG TABLET PO SCH (09:21)
[2022-04-09] MEDS: FOLIC ACID 1 MG TABLET PO SCH (09:21)
[2022-04-09] MEDS: OLANZapine 2.5 MG TABLET NG SCH (09:21)
[2022-04-09] MEDS: CHOLECALCIFEROL 5,000 UNIT TABLET PO SCH (09:21)
[2022-04-09] MEDS: ACETAMINOPHEN 325 MG TABLET PO PRN (09:25)
[2022-04-09 11:09] LABS: Hematocrit 26.1 VOL% (35.7-47.0); Hemoglobin 8.9 GM/DL (12.0-16.0)
[2022-04-09] MEDS: traMADol 50 MG TABLET PO PRN (14:16)
[2022-04-09 20:46] LABS: Hematocrit 23.4 VOL% (35.7-47.0); Hemoglobin 7.9 GM/DL (12.0-16.0)
[2022-04-09 21:09] VITALS: BP 128/54
== END 2022-04-09 20:55 | disposition hospice, home (50) | DRG 442 ==
LOC: EDUNIT# → EDBD → N.EDINP 12:15 → N.ED 12:15 → N.5E 17:15 → SUATTDRO 03-26 12:50
PROVIDERS: ADMIT Internal Medicine; ATTEND Family Medicine